=== PATIENT | male | born 1960 | race Caucasian/White ===

== ENCOUNTER 2017-02-18 00:36 | Emergency (ER) | payer SELFPAY | END 2017-02-18 01:16 | disposition home or self-care (01) | PROVIDERS: Emergency Provider Emergency Medicine; Visit Provider Emergency Medicine | DX: K02.9 Dental caries, unspecified (principal); F17.210 Nicotine dependence, cigarettes, uncomplicated; Z88.0 Allergy status to penicillin | CPT/HCPCS: 99282 ==

== ENCOUNTER 2017-02-20 14:44 | Emergency (ER) | payer SELFPAY | END 2017-02-20 15:35 | disposition home or self-care (01) | PROVIDERS: Emergency Provider Nurse Practitioner Family; Visit Provider Nurse Practitioner Family | DX: J40 Bronchitis, not specified as acute or chronic (principal); F17.210 Nicotine dependence, cigarettes, uncomplicated; Z88.0 Allergy status to penicillin; Z79.899 Other long term (current) drug therapy | CPT/HCPCS: 71020; 99201 ==

== ENCOUNTER 2017-04-15 23:12 | Emergency (ER) | payer MEDICAID, SELFPAY ==
[2017-04-15 23:13] VITALS: BP 159/82; PULSE 80; RESP 18; TEMP 37.3; O2SAT 98; BMI 25.4
--- NOTE | 2017-04-15 23:19 | XR_ITS ---
XR chest 2V HISTORY: ITS.REASON: CHEST PAIN ORDERING PHYSICIAN: Kumar Fagan MD PATIENT AGE: 56 years COMPARISON: 02/20/2017 FINDINGS: The cardiomediastinal silhouette and pulmonary vascularity are within normal limits. There is mild left basilar atelectasis. The remaining lungs are clear. No acute bony abnormalities. IMPRESSION: Mild left basilar atelectasis otherwise negative chest
[2017-04-15 23:32] LABS: Basophils # 0.1 K/mm3 (0-0.2); Basophils % 0.8 % (0.1-2.0); Eosinophils # 0.2 K/mm3 (0.0-0.4); Eosinophils % 2.1 % (0.1-12.0); Hematocrit 46.5 % (42.0-52.0); Hemoglobin 15.4 g/dL (14.1-18.0); Lymphocytes # 2.5 K/mm3 (0.7-4.5); Lymphocytes % 34.7 K/mm3 (10-50); Mean Corpuscular Hemoglobin 31.8 pg (27.0-31.2); Mean Corpuscular Volume 96.1 fl (80-94); Mean Platelet Volume 7.3 fl (7.4-10.4); Monocytes # 0.4 K/mm3 (0.1-1.0); Monocytes % 5.3 % (1.7-9.3); Neutrophils # 4.1 K/mm3 (1.8-7.8); Neutrophils % 57.2 % (37.0-80.0); Platelet Count 256 K/mm3 (142-424); Red Blood Count 4.84 M/mm3 (4.60-6.20); Red Cell Distribution Width 12.7 % (11.5-17.5); White Blood Count 7.1 K/mm3 (4.8-10.8)
[2017-04-16 00:23] LABS: Alanine Aminotransferase 26 U/L (12-78); Albumin Level 3.8 gm/dL (3.4-5.0); Alkaline Phosphatase 87 U/L (46-116); Anion Gap 9.8 mEq/L (5-15); Aspartate Amino Transferase 15 U/L (15-37); Bilirubin,Total 0.7 mg/dL (0.2-1.0); Blood Urea Nitrogen 14 mg/dL (7-18); CKMB Relative Index 0.8 U/L (0-4.0); Calcium 9.2 mg/dL (8.5-10.1); Carbon Dioxide 31 mmol/L (21.0-32.0); Chloride 108 mmol/L (98-107); Creatine Kinase 63 U/L (39-308); Creatine Kinase MB 0.5 mg/ml (0.0-3.6); Creatinine Clearance Estimated 69 mL/min (0-300); Creatinine,Serum 1.21 mg/dL (0.70-1.30); Estimated Glomerular Filt Rate 62 ml/min (>60); GFR (African American) 75 ML/MIN (>60); Globulin 3.9 gm/dl (1.3-3.2); Glucose 98 mg/dL (74-106); Potassium 3.8 mmoL/L (3.5-5.1); Sodium 145 mmol/L (136-145); Total Protein,Serum 7.7 gm/dL (6.4-8.2); Troponin I < 0.02 ng/ml (0.00-0.06)
--- NOTE | 2017-04-16 00:42 | HMH.EDCP ---
ED Disposition Clinical Impression: Chest pain Qualifiers: Chest pain type: unspecified Qualified Code(s): R07.9 - Chest pain, unspecified Disposition: Home, Self-Care Condition on Discharge: Good Instructions: DI for Atypical Chest Pain Additional Instructions: see card monday at 0900 - Critical Care Critical Care Time: No Attestation: On 04/15/17, the high probability of a clinically significant, sudden or life threatening deterioration of the following system(s) required my full and direct attention, intervention and personal management. The time I documented below is in addition to time spent performing reported procedures but includes the following listed in this critical care notation. Medical Decision Making - Medical Records Medical records reviewed: Yes: I reviewed the patient's medical records. Vital Signs: 04/15/17 23:13 Temperature 99.2 F Temperature Source Oral Pulse Rate [Right Brachial] 80 Respiratory Rate 18 Blood Pressure [Right Arm] 159/82 Blood Pressure Mean [Right Arm] 107 02 Sat by Pulse Oximetry 98 Oxygen Delivery Method Room Air - Lab Data Lab results reviewed: Yes: I reviewed the patient's lab results. Lab Results 04/15/17 23:20: WBC 7.1, RBC 4.84, Hgb 15.4, Hct 46.5, MCV 96.1 H, MCH 31.8 H, MCHC 33.0, RDW 12.7, Plt Count 256, MPV 7.3 L, Neut % (Auto) 57.2, Lymph % (Auto) 34.7, [place] % (Auto) 5.3, Eos % (Auto) 2.1, Baso % (Auto) 0.8, Neut # (Auto) 4.1, Lymph # (Auto) 2.5, [place] # (Auto) 0.4, Eos # (Auto) 0.2, Baso # (Auto) 0.1 04/15/17 23:20: Sodium 145, Potassium 3.8, Chloride 108 H, Carbon Dioxide 31, Anion Gap 9.8, BUN 14, Creatinine 1.21, Estimated Creat Clear 69, Estimated GFR 62, Est GFR ( Amer) 75, Glucose 98, Calcium 9.2, Total Bilirubin 0.7, AST 15, ALT 26, Alkaline Phosphatase 87, Total Creatine Kinase 63, CK-MB (CK-2) 0.5, CK-MB (CK-2) Rel Index 0.8, Troponin I < 0.02, Total Protein 7.7, Albumin 3.8, Globulin 3.9 H, Albumin/Globulin Ratio 1.0 L Result diagrams: 04/15/17 23:20 04/15/17 23:20 Orders (Tests/Meds): ED MEDICATIONS Discontinued Medications Generic Name Dose Route Start Last Admin Trade Name Ulisses PRN Reason Stop Dose Admin Aspirin 324 mg 04/15/17 23:20 04/15/17 23:21 Aspirin 81mg Chewable Tablet PO 04/15/17 23:21 324 mg ONCE ONE Administration ORDERS Category Date Time Status Chest XR 2 view (NOT portable) [XR chest 2V] Stat Exams 04/15/17 23:19 Taken - Radiology Data #1 Image(s): Chest Image Reviewed: Yes I reviewed the patient's radiology image Preliminary Findings: Normal/NAD - ECG Data Tracing #1 I reviewed this ECG and interpreted as documented below: Normal Sinus Rhythm: Yes Ischemic changes: non-specific ST-T wave changes - Anjel Inquiry Pt receiving controlled substance: No Chest Pain HPI - General Chief Complaint: Chest Pain Stated Complaint: chest pain Time Seen by Provider: 04/16/17 00:43 Mode of Arrival: Ambulatory Source of Information: Patient, Medical Record Limitations: No Limitations Description of Symptoms (Recalled from ER Triage Doc. by RN): CHEST PAIN X3 DAYS - History of Present Illness HPI narrative: chest achey over the last 3 days - has had before - cath 6 yrs ago with neg cath - no fever or cough MD complaint: chest pain Onset (ago): day(s) Duration: intermittent Activity at onset: during rest Pain location: epigastric Severity: moderate Quality: aching Risk Factors for CAD: Family Hx of CAD Treatments prior to or on arrival for Cardiac Chest Pain: none - KARLENE Score Non-Stemi Age of patient: Less than 65 yrs Number of risk factors for CAD: Presence of less than 3 Prior coronary artery stenosis(seen in coronary angiography): Less than 50% ST-Segment deviation on ECG (more than 1 min): Absent Prior aspirin intake: No ASA in the last 7 days Severe anginal chest pain: Two or more episodes in last 24 hours Elevated cardiac markers(CK-MB or troponin)
--- NOTE | 2017-04-16 00:46 | ED_ITS ---
ED Disposition Clinical Impression: Chest pain Qualifiers: Chest pain type: unspecified Qualified Code(s): R07.9 - Chest pain, unspecified Disposition: Home, Self-Care Condition on Discharge: Good Instructions: DI for Atypical Chest Pain Additional Instructions: see card monday at 0900 - Critical Care Critical Care Time: No Attestation: On 04/15/17, the high probability of a clinically significant, sudden or life threatening deterioration of the following system(s) required my full and direct attention, intervention and personal management. The time I documented below is in addition to time spent performing reported procedures but includes the following listed in this critical care notation. Medical Decision Making - Medical Records Medical records reviewed: Yes: I reviewed the patient's medical records. Vital Signs: 04/15/17 23:13 Temperature 99.2 F Temperature Source Oral Pulse Rate [Right Brachial] 80 Respiratory Rate 18 Blood Pressure [Right Arm] 159/82 Blood Pressure Mean [Right Arm] 107 02 Sat by Pulse Oximetry 98 Oxygen Delivery Method Room Air - Lab Data Lab results reviewed: Yes: I reviewed the patient's lab results. Lab Results 04/15/17 23:20: WBC 7.1, RBC 4.84, Hgb 15.4, Hct 46.5, MCV 96.1 H, MCH 31.8 H, MCHC 33.0, RDW 12.7, Plt Count 256, MPV 7.3 L, Neut % (Auto) 57.2, Lymph % (Auto ) 34.7, [place] % (Auto) 5.3, Eos % (Auto) 2.1, Baso % (Auto) 0.8, Neut # (Auto) 4.1, Lymph # (Auto) 2.5, [place] # (Auto) 0.4, Eos # (Auto) 0.2, Baso # (Auto) 0.1 04/15/17 23:20: Sodium 145, Potassium 3.8, Chloride 108 H, Carbon Dioxide 31, Anion Gap 9.8, BUN 14, Creatinine 1.21, Estimated Creat Clear 69, Estimated GFR 62, Est GFR ( Amer) 75, Glucose 98, Calcium 9.2, Total Bilirubin 0.7, AST 15, ALT 26, Alkaline Phosphatase 87, Total Creatine Kinase 63, CK-MB (CK-2) 0.5, CK-MB (CK-2) Rel Index 0.8, Troponin I < 0.02, Total Protein 7.7, Albumin 3.8, Globulin 3.9 H, Albumin/Globulin Ratio 1.0 L Result diagrams: 04/15/17 23:20 04/15/17 23:20 Orders (Tests/Meds): ED MEDICATIONS Discontinued Medications Generic Name Dose Route Start Last Admin Trade Name Ulisses PRN Reason Stop Dose Admin Aspirin 324 mg 04/15/17 23:20 04/15/17 23:21 Aspirin 81mg Chewable Tablet PO 04/15/17 23:21 324 mg ONCE ONE Administration ORDERS Category Date Time Status Chest XR 2 view (NOT portable) [XR chest 2V] Stat Exams 04/15/17 23:19 Taken - Radiology Data #1 Image(s): Chest Image Reviewed: Yes I reviewed the patient's radiology image Preliminary Findings: Normal/NAD - ECG Data Tracing #1 I reviewed this ECG and interpreted as documented below: Normal Sinus Rhythm: Yes Ischemic changes: non-specific ST-T wave changes - Anjel Inquiry Pt receiving controlled substance: No Chest Pain HPI - General Chief Complaint: Chest Pain Stated Complaint: chest pain Time Seen by Provider: 04/16/17 00:43 Mode of Arrival: Ambulatory Source of Information: Patient, Medical Record Limitations: No Limitations Description of Symptoms (Recalled from ER Triage Doc. by RN): CHEST PAIN X3 DAYS - History of Present Illness HPI narrative: chest achey over the last 3 days - has had before - cath 6 yrs ago with neg cath - no fever or cough MD complaint: chest pain Onset (ago): day(s
[2017-04-16 00:59] VITALS: BP 132/86; PULSE 64; RESP 16; TEMP 37.3; O2SAT 97
[2017-05-10 10:00] LABS: POC Glucose,Bedside 116 mg/dL (70-110)
== END 2017-04-16 01:00 | disposition home or self-care (01) ==
PROVIDERS: Emergency Provider Emergency Medicine; Family Provider Internal Medicine Adolescent Medicine
DX: R07.9 Chest pain, unspecified (principal); Z82.49 Family history of ischemic heart disease and other diseases of the circulatory system; Z87.891 Personal history of nicotine dependence; Z88.0 Allergy status to penicillin
CPT/HCPCS: 71046; 80053; 82550; 82553; 82962; 84484; 85025; 93005; 93041; 99284

== ENCOUNTER 2017-05-04 10:39 | Emergency (ER) | payer MEDICAID, SELFPAY ==
[2017-05-04 11:05] VITALS: BP 134/73; PULSE 88; RESP 20; TEMP 36.7; O2SAT 98; BMI 26.1
[2017-05-04 11:30] VITALS: BP 132/77; PULSE 88; RESP 20; TEMP 36.6
--- NOTE | 2017-05-04 11:40 | HMH.EDUTC ---
[facility] [place] Disposition Clinical Impression: Dental abscess Disposition: Home, Self-Care Condition on Discharge: Good Instructions: Tooth Decay, Tooth Abscess, DI for Tooth Abscess Additional Instructions: Follow up with dentist as scheduled Follow up with family doctor for further treatment and evaluation Take medication as prescribed Return if needed Prescriptions: cephALEXin [Keflex 500mg Cap] 500 mg PO Q6H #40 cap Referrals: Kumar Fagan MD [Primary Care Provider] - Medical Decision Making - Medical Records Medical records reviewed: Yes: I reviewed the patient's medical records. Vital Signs: 05/04/17 11:05 05/04/17 11:30 Temperature 98.1 F 98 F Temperature Source Temporal Artery Scan Pulse Rate 88 Pulse Rate [Right] 88 Respiratory Rate 20 20 Blood Pressure 132/77 Blood Pressure [Right Arm] 134/73 Blood Pressure Mean [Right Arm] 93 Blood Pressure Source [Right Arm] Automatic Cuff Blood Pressure Position [Right Arm] Sitting 02 Sat by Pulse Oximetry 98 Oxygen Delivery Method Room Air - Anjel Inquiry Pt receiving controlled substance: No Anjel was queried for this patient: No - Reevaluation(s) Time: 11:59 Reevaluation #1: Patient advised that he has taken Keflex before and even though allergic to Penicillin he is able to take Cephasporins without reaction [facility] [place] HPI - General Stated complaint: dental pain Mode of Arrival: Ambulatory Source of Information: Patient Limitations: No Limitations Description of Symptoms (Recalled from Triage Doc. by RN): DENTAL PAIN X2 MONTHS HEENT Symptoms (Recalled from RN notes): Yes Resp Symptoms (Recalled from RN notes): No Skin Symptoms (Recalled from RN notes): No MS Symptoms (Recalled from RN notes): No Functional Status (Recalled from RN notes): N - History of Present Illness Provider Complaint: Patient state that he has been having dental issues now for several months State that he has an appointment with the dentist in the next couple of weeks to have teeth removed but thinks they may be infected so he came in to see if he may need antibiotics - Related Data Previous Rx's Medication Instructions Recorded omeprazole 40 mg capsule,delayed 40 mg PO DAILY #30 cap 04/17/17 release cephALEXin [Keflex 500mg Cap] 500 mg PO Q6H #40 cap 05/04/17 Allergies Allergy/AdvReac Type Severity Reaction Status Date / Time Penicillins [PENICILLINS] Allergy Mild Verified 04/15/17 23:17 - Worker's Comp Is this a Worker's Comp case?: No [facility] History I have reviewed the patient's past medical history: Yes Other Surgeries: Yes: Other (Micky Sx) - Social History Smoking Status: Former smoker Alcohol Intake: never Alcohol Intake Frequency:: other - Psychiatric History Expresses thoughts of harming self/others: None Suicide Plan Description: No Plan Family Hx:: Coronary Artery Disease, Heart Attack ROS Obtained: Yes All systems reviewed & no additional complaints - ENT Ears, Nose, Mouth, and Throat: Reports dental pain Physical Exam - General General appearance: alert, in no apparent distress - Expanded ENT Exam Teeth exam: Present: dental caries, fractured tooth #, other (Gum area on top jawline swollen, irritated multiple broken and decayed teeth noted) - Respiratory Respiratory exam: Present: normal lung sounds bilaterally. Absent: respiratory distress - Cardiovascular Cardiovascular exam: Present: regular rate, normal rhythm. Absent: JVD - Abdominal Exam Abdominal exam: Present: soft, normal bowel sounds. Absent: distention, tenderness, guarding - Neurological Exam Neurological exam: Present: alert, oriented X3
--- NOTE | 2017-05-04 11:46 | ED_ITS ---
[facility] [place] Disposition Clinical Impression: Dental abscess Disposition: Home, Self-Care Condition on Discharge: Good Instructions: Tooth Decay, Tooth Abscess, DI for Tooth Abscess Additional Instructions: Follow up with dentist as scheduled Follow up with family doctor for further treatment and evaluation Take medication as prescribed Return if needed Prescriptions: cephALEXin [Keflex 500mg Cap] 500 mg PO Q6H #40 cap Referrals: Kumar Fagan MD [Primary Care Provider] - Medical Decision Making - Medical Records Medical records reviewed: Yes: I reviewed the patient's medical records. Vital Signs: 05/04/17 11:05 05/04/17 11:30 Temperature 98.1 F 98 F Temperature Source Temporal Artery Scan Pulse Rate 88 Pulse Rate [Right] 88 Respiratory Rate 20 20 Blood Pressure 132/77 Blood Pressure [Right Arm] 134/73 Blood Pressure Mean [Right Arm] 93 Blood Pressure Source [Right Arm] Automatic Cuff Blood Pressure Position [Right Arm] Sitting 02 Sat by Pulse Oximetry 98 Oxygen Delivery Method Room Air - Anjel Inquiry Pt receiving controlled substance: No Anjel was queried for this patient: No - Reevaluation(s) Time: 11:59 Reevaluation #1: Patient advised that he has taken Keflex before and even though allergic to Penicillin he is able to take Cephasporins without reaction [facility] [place] HPI - General Stated complaint: dental pain Mode of Arrival: Ambulatory Source of Information: Patient Limitations: No Limitations Description of Symptoms (Recalled from Triage Doc. by RN): DENTAL PAIN X2 MONTHS HEENT Symptoms (Recalled from RN notes): Yes Resp Symptoms (Recalled from RN notes): No Skin Symptoms (Recalled from RN notes): No MS Symptoms (Recalled from RN notes): No Functional Status (Recalled from RN notes): N - History of Present Illness Provider Complaint: Patient state that he has been having dental issues now for several months State that he has an appointment with the dentist in the next couple of weeks to have teeth removed but thinks they may be infected so he came in to see if he may need antibiotics - Related Data Previous Rx's Medication Instructions Recorded omeprazole 40 mg capsule,delayed 40 mg PO DAILY #30 cap 04/17/17 release cephALEXin [Keflex 500mg Cap] 500 mg PO Q6H #40 cap 05/04/17 Allergies Allergy/AdvReac Type Severity Reaction Status Date / Time Penicillins [PENICILLINS] Allergy Mild Verified 04/15/17 23:17 - Worker's Comp Is this a Worker's Comp case?: No [facility] History I have reviewed the patient's past medical history: Yes Other Surgeries: Yes: Other (Micky Sx) - Social History Smoking Status: Former smoker Alcohol Intake: never Alcohol Intake Frequency:: other - Psychiatric History Expresses thoughts of harming self/others: None Suicide Plan Description: No Plan Family Hx:: Coronary Artery Disease, Heart Attack ROS Obtained: Yes All systems reviewed & no additional complaints - ENT Ears, Nose, Mouth, and Throat: Reports dental pain Physical Exam - General General appearance: alert, in no apparent distress - Expanded ENT Exam Teeth exam: Present: dental caries, fractured tooth #, other (Gum area on top jawline swollen, irritated multiple broken and decayed teeth noted) - Respiratory Respiratory exam: Pre
== END 2017-05-04 12:05 | disposition home or self-care (01) ==
PROVIDERS: Emergency Provider Nurse Practitioner; Family Provider Internal Medicine Adolescent Medicine; PCP Emergency Medicine
DX: K04.7 Periapical abscess without sinus (principal)
CPT/HCPCS: 99202

== ENCOUNTER 2017-05-07 10:37 | Observation (INO) | payer MEDICAID, SELFPAY ==
[2017-05-07] VITALS (15 sets, daily range): BP systolic 108–146; BP diastolic 70–90; PULSE 61–89; RESP 16–18; TEMP 36.4–36.7; O2SAT 93–99; BMI 26.1; BMI 26.6
--- NOTE | 2017-05-07 10:42 | XR_ITS ---
XR chest 2V HISTORY: ITS.REASON: chest pain ORDERING PHYSICIAN: Frances Wheat MD PATIENT AGE: 56 years COMPARISON: To 1018 FINDINGS: The cardiomediastinal silhouette and pulmonary vascularity are within normal limits. Left basilar atelectasis has improved. The lungs are clear of acute infiltrate. No acute bony anomalies. IMPRESSION: No acute finding
[2017-05-07 10:52] LABS: Basophils # 0.1 K/mm3 (0-0.2); Basophils % 0.8 % (0.1-2.0); Eosinophils # 0.4 K/mm3 (0.0-0.4); Eosinophils % 6.6 % (0.1-12.0); Hemoglobin 17.3 g/dL (14.1-18.0); Lymphocytes # 2.2 K/mm3 (0.7-4.5); Lymphocytes % 32.8 K/mm3 (10-50); Mean Corpuscular HGB Conc 33.2 g/dL (31.8-35.4); Mean Corpuscular Hemoglobin 33.1 pg (27.0-31.2); Mean Corpuscular Volume 99.9 fl (80-94); Mean Platelet Volume 7.3 fl (7.4-10.4); Monocytes # 0.3 K/mm3 (0.1-1.0); Monocytes % 4.3 % (1.7-9.3); Neutrophils # 3.7 K/mm3 (1.8-7.8); Neutrophils % 55.6 % (37.0-80.0); Platelet Count 250 K/mm3 (142-424); Red Blood Count 5.21 M/mm3 (4.60-6.20); Red Cell Distribution Width 12.9 % (11.5-17.5); White Blood Count 6.6 K/mm3 (4.8-10.8)
--- NOTE | 2017-05-07 11:01 | HMH.EDCP ---
ED Disposition Clinical Impression: Unstable angina, Hypertension, Tobacco use disorder Disposition: Still a Patient Condition on Discharge: Fair Referrals: Kumar Fagan MD [Primary Care Provider] - - Critical Care Critical Care Time: No Attestation: On 05/07/17, the high probability of a clinically significant, sudden or life threatening deterioration of the following system(s) required my full and direct attention, intervention and personal management. The time I documented below is in addition to time spent performing reported procedures but includes the following listed in this critical care notation. Medical Decision Making Vital Signs: 05/07/17 10:37 05/07/17 11:38 Temperature 97.5 F L Temperature Source Oral Pulse Rate 61 Pulse Rate [Right Brachial] 80 Respiratory Rate 18 Blood Pressure [Right Arm] 146/90 Blood Pressure Mean [Right Arm] 108 Blood Pressure Source [Right Arm] Automatic Cuff Blood Pressure Position [Right Arm] Sitting 02 Sat by Pulse Oximetry 98 Oxygen Delivery Method Room Air - Lab Data Lab Results 05/07/17 10:45: WBC 6.6, RBC 5.21, Hgb 17.3, Hct 52.0, MCV 99.9 H, MCH 33.1 H, MCHC 33.2, RDW 12.9, Plt Count 250, MPV 7.3 L, Neut % (Auto) 55.6, Lymph % (Auto) 32.8, [place] % (Auto) 4.3, Eos % (Auto) 6.6, Baso % (Auto) 0.8, Neut # (Auto) 3.7, Lymph # (Auto) 2.2, [place] # (Auto) 0.3, Eos # (Auto) 0.4, Baso # (Auto) 0.1 05/07/17 10:45: Sodium 140, Potassium 4.1, Chloride 103, Carbon Dioxide 29, Anion Gap 8.0, BUN 13, Creatinine 1.23, Estimated Creat Clear 70, Estimated GFR 61, Est GFR ( Amer) 74, Glucose 118 H, Calcium 9.1, Total Bilirubin 0.5, AST 19, ALT 34, Alkaline Phosphatase 109, Total Creatine Kinase 83, CK-MB (CK-2) 0.8 D, CK-MB (CK-2) Rel Index 1.0, Troponin I < 0.02, Total Protein 8.3 H, Albumin 4.0, Globulin 4.3 H, Albumin/Globulin Ratio 0.9 L Result diagrams: 05/07/17 10:45 05/07/17 10:45 Orders (Tests/Meds): ED MEDICATIONS Discontinued Medications Generic Name Dose Route Start Last Admin Trade Name Ulisses PRN Reason Stop Dose Admin Albuterol/Ipratropium 3 ml 05/07/17 11:13 05/07/17 11:38 Duoneb 3ml Neb IH 05/07/17 11:14 3 ml ONCE ONE Administration Aspirin 324 mg 05/07/17 10:42 05/07/17 10:46 Aspirin 81mg Enteric Coated Tablet PO 05/07/17 10:43 324 mg ONCE ONE Administration Famotidine 20 mg 05/07/17 11:14 05/07/17 11:50 Pepcid 20mg/2ml Vial IV 05/07/17 11:15 20 mg ONCE ONE Administration Methylprednisolone Sodium Succinate 125 mg 05/07/17 11:13 05/07/17 11:50 Solu-Medrol 125mg/2ml Vial IV 05/07/17 11:14 125 mg ONCE ONE Administration Nitroglycerin 0.4 mg 05/07/17 10:59 05/07/17 11:00 Nitrostat 0.4mg Sl Tablet SL 05/07/17 11:00 1 1000units ONCE ONE Administration ORDERS Category Date Time Status B-Type Natriuretic Peptide Stat Lab 05/07/17 10:45 Received D-Dimer Stat Lab 05/07/17 10:45 Received - Radiology Data #1 Image(s): Chest Image Reviewed: Yes I reviewed the patient's radiology image Preliminary Findings: Normal/NAD - ECG Data Tracing #1 Normal sinus rhythm 60/min baseline artifact no acute findings. ECG initial impression date: 05/07/17 ECG initial impression time: 11:04 - Anjel Inquiry Pt receiving controlled substance: No Anjel was queried for this patient: No Medical Decision Making Narrative: The patient was given aspirin and nitroglycerin with no improvement. Is given a DuoNeb with no improvement. The need to have dull pressure type pain on the chest. Blood pressure was better down to [address] Morse is on-call for Dr. Fagan and he agreed to admit him for observation serial enzymes and echocardiogram in the morning with cardiac consultation. Chest Pain HPI - General Chief Complaint: Chest Pain Stated Complaint: chest pain, SOA Mode of Arrival: Ambulatory Limitations: No Limitations Description of Symptom
--- NOTE | 2017-05-07 11:04 | ED_ITS ---
ED Disposition Clinical Impression: Unstable angina, Hypertension, Tobacco use disorder Disposition: Still a Patient Condition on Discharge: Fair Referrals: Kumar Fagan MD [Primary Care Provider] - - Critical Care Critical Care Time: No Attestation: On 05/07/17, the high probability of a clinically significant, sudden or life threatening deterioration of the following system(s) required my full and direct attention, intervention and personal management. The time I documented below is in addition to time spent performing reported procedures but includes the following listed in this critical care notation. Medical Decision Making Vital Signs: 05/07/17 10:37 05/07/17 11:38 Temperature 97.5 F L Temperature Source Oral Pulse Rate 61 Pulse Rate [Right Brachial] 80 Respiratory Rate 18 Blood Pressure [Right Arm] 146/90 Blood Pressure Mean [Right Arm] 108 Blood Pressure Source [Right Arm] Automatic Cuff Blood Pressure Position [Right Arm] Sitting 02 Sat by Pulse Oximetry 98 Oxygen Delivery Method Room Air - Lab Data Lab Results 05/07/17 10:45: WBC 6.6, RBC 5.21, Hgb 17.3, Hct 52.0, MCV 99.9 H, MCH 33.1 H, MCHC 33.2, RDW 12.9, Plt Count 250, MPV 7.3 L, Neut % (Auto) 55.6, Lymph % (Auto ) 32.8, [place] % (Auto) 4.3, Eos % (Auto) 6.6, Baso % (Auto) 0.8, Neut # (Auto) 3.7, Lymph # (Auto) 2.2, [place] # (Auto) 0.3, Eos # (Auto) 0.4, Baso # (Auto) 0.1 05/07/17 10:45: Sodium 140, Potassium 4.1, Chloride 103, Carbon Dioxide 29, Anion Gap 8.0, BUN 13, Creatinine 1.23, Estimated Creat Clear 70, Estimated GFR 61, Est GFR ( Amer) 74, Glucose 118 H, Calcium 9.1, Total Bilirubin 0.5, AST 19, ALT 34, Alkaline Phosphatase 109, Total Creatine Kinase 83, CK-MB (CK-2 ) 0.8 D, CK-MB (CK-2) Rel Index 1.0, Troponin I < 0.02, Total Protein 8.3 H, Albumin 4.0, Globulin 4.3 H, Albumin/Globulin Ratio 0.9 L Result diagrams: 05/07/17 10:45 05/07/17 10:45 Orders (Tests/Meds): ED MEDICATIONS Discontinued Medications Generic Name Dose Route Start Last Admin Trade Name Ulisses PRN Reason Stop Dose Admin Albuterol/Ipratropium 3 ml 05/07/17 11:13 05/07/17 11:38 Duoneb 3ml Neb IH 05/07/17 11:14 3 ml ONCE ONE Administration Aspirin 324 mg 05/07/17 10:42 05/07/17 10:46 Aspirin 81mg Enteric Coated Tablet PO 05/07/17 10:43 324 mg ONCE ONE Administration Famotidine 20 mg 05/07/17 11:14 05/07/17 11:50 Pepcid 20mg/2ml Vial IV 05/07/17 11:15 20 mg ONCE ONE Administration Methylprednisolone Sodium Succinate 125 mg 05/07/17 11:13 05/07/17 11:50 Solu-Medrol 125mg/2ml Vial IV 05/07/17 11:14 125 mg ONCE ONE Administration Nitroglycerin 0.4 mg 05/07/17 10:59 05/07/17 11:00 Nitrostat 0.4mg Sl Tablet SL 05/07/17 11:00 1 1000units ONCE ONE Administration ORDERS Category Date Time Status B-Type Natriuretic Peptide Stat Lab 05/07/17 10:45 Received D-Dimer Stat Lab 05/07/17 10:45 Received - Radiology Data #1 Image(s): Chest Image Reviewed: Yes I reviewed the patient's radiology image Preliminary Findings: Normal/NAD - ECG Data Tracing #1 Normal sinus rhythm 60/min baseline artifact no acute findings. ECG initial impression date: 05/07/17 ECG initial impression time: 11:04 [facility]
[2017-05-07 11:09] LABS: Blood Urea Nitrogen 13 mg/dL (7-18); Carbon Dioxide 29 mmol/L (21.0-32.0); Chloride 103 mmol/L (98-107); Creatine Kinase 83 U/L (39-308); Creatinine Clearance Estimated 70 mL/min (0-300); Creatinine,Serum 1.23 mg/dL (0.70-1.30); Estimated Glomerular Filt Rate 61 ml/min (>60); GFR (African American) 74 ML/MIN (>60); Glucose 118 mg/dL (74-106); Potassium 4.1 mmoL/L (3.5-5.1); Sodium 140 mmol/L (136-145); Troponin I < 0.02 ng/ml (0.00-0.06)
[2017-05-07 11:10] LABS: Alanine Aminotransferase 34 U/L (12-78); Albumin/Globulin Ratio 0.9 (1.1-1.8); Alkaline Phosphatase 109 U/L (46-116); Aspartate Amino Transferase 19 U/L (15-37); Bilirubin,Total 0.5 mg/dL (0.2-1.0); Calcium 9.1 mg/dL (8.5-10.1); Globulin 4.3 gm/dl (1.3-3.2); Total Protein,Serum 8.3 gm/dL (6.4-8.2)
[2017-05-07 11:17] LABS: Creatine Kinase MB 0.8 mg/ml (0.0-3.6)
--- NOTE | 2017-05-07 11:54 | PC.NURSE ---
AYO HYATT spoke with Dr. Morse who is television program director for
[2017-05-07 12:02] LABS: D-Dimer < 100 (0-400)
--- NOTE | 2017-05-07 12:22 | PC.NURSE ---
report called to KADE Roth on second floor at this time.
[2017-05-07 12:33] LABS: Troponin I < 0.02 ng/ml (0.00-0.06)
--- NOTE | 2017-05-07 13:12 | PC.ADMIT ---
[id number] Admission Note: The patient,Jerry Huynh,56 y/o, was given written information regarding hospital policies, unit procedures and contact persons. Patient's smoking status: Former smoker. Vital Signs - 8 hr 05/07/17 10:37 05/07/17 11:38 05/07/17 11:53 Temperature 97.5 F L Pulse Rate 61 Pulse Rate [Right Brachial] 80 64 Respiratory Rate 18 18 Blood Pressure Blood Pressure [Right Arm] 146/90 108/70 02 Sat by Pulse Oximetry 98 99 05/07/17 12:46 05/07/17 12:50 05/07/17 13:09 Temperature 98.0 F 98.0 F Pulse Rate 72 Pulse Rate [Right Brachial] 62 72 Respiratory Rate 16 18 18 Blood Pressure 112/75 Blood Pressure [Right Arm] 128/77 02 Sat by Pulse Oximetry 98 98 Pt arrived to the floor via wheelchair. A&O X3. Heart has a RRR. Lungs clear, bowel sounds active. Respirations are even and nonlabored. Pt appears slightly anxious. He states he has never been admitted to the hospital before and is a little nervous. Explained all procedures and went over what to expect during his stay. NSR on tele. No complaints verbalized. Will continue to monitor.
--- NOTE | 2017-05-07 19:02 | PC.NURSE ---
report to be given to Dorothy Tubbs RN
[2017-05-07 19:18] LABS: Troponin I < 0.02 ng/ml (0.00-0.06)
[2017-05-08] VITALS: PULSE 90
--- NOTE | 2017-05-08 | CA_ITS ---
PROCEDURE: 2-D M-mode and color Doppler study INDICATIONS FOR THE TEST: Chest pain+ COPD Heart Murmur Tobacco Smokingex Palpitations Fatigue Syncope Edema Hypertension Diabetes Mellitus Rheumatic Fever SOB BACA+Obesity Hyperlipidemia Family History HD+ Additional History dizziness, tachycardia PATIENT INFORMATION HEIGHT: 66 WEIGHT: 165 GENDER: Male B/P: 146/90 2-D/M-MODE INTERPRETATION: 2-D MEASUREMENTS OBSERVED VALUES IN CMS Right Ventricular Dimension (RVDd) 2.0 Interventricular Septum (Thickness)(IVsd) 1.2 Left Ventricular Internal Dimensions(LVIDd) 4.1 Left Ventricular Posterior Wall (Thickness)(LVPWd) 1.0 Aortic Root 3.1 Aortic Cusp Separation 2.2 Left Atrial Dimensions (LAD) 3.5 2D 1. Left atrium is normal size, left ventricle is normal size, there is mild qualitative concentric left ventricular hypertrophy, there is hyperdynamic left ventricular systolic function, visually estimated ejection fraction over 65% with no obvious regional wall motion abnormality. 2. The right atrium and right ventricle are normal size and contractility. 3. The aortic, mitral and tricuspid valvular grossly normal. 4. The pulmonic valve is poorly visualized 5. No significant pericardial effusion noted. DOPPLER INTERROGATION: Doppler interrogation of the aortic, mitral and tricuspid valvular presence of mild mitral and tricuspid regurgitation, tricuspid and jet velocity is insufficient for calculation of the right ventricular systolic pressure, grade 1 diastolic dysfunction seen without tissue Doppler evidence of raised left atrial pressure. CONCLUSION: 1. Normal left ventricular size, mild qualitative concentric left ventricular hypertrophy, hyperdynamic left ventricular systolic function, visually estimated ejection fraction was 65% with no obvious regional wall motion abnormality, grade 1 diastolic dysfunction seen without tissue Doppler evidence of raised left atrial pressure. 2. Mild mitral and tricuspid regurgitation 3. No significant pericardial effusion noted.
[2017-05-08 04:00] VITALS: BP 120/67; PULSE 60; PULSE 72; RESP 18; TEMP 36.5; O2SAT 92
--- NOTE | 2017-05-08 05:26 | PC.NURSE ---
Pt has rested in intervals this shift, states he has a aching feeling in his chest but is better. Pt states he is very anxious about being in the hospital and scared something is really wrong Pt has refused nitro paste this shift, states It made me feel funny when they gave it to me in the ER Educated it would help his pain and he states it does not hurt bad enough. NSR noted on cardiac cath lab technologist. VSS. BS active in all 4 qauds. Lung sounds clear. A&Ox3. No acute distress noted. Will continue to monitor.
[2017-05-08 05:56] VITALS: PULSE 89; PULSE 91
--- NOTE | 2017-05-08 06:17 | PC.NURSE ---
BRIDGETT Stacy, notified of consult for Dr Montanez
[2017-05-08 06:59] LABS: Chol/HDL Ratio 3.2 (1-3.5); Cholesterol 180 mg/dL (140-200); HDL Cholesterol 57 mg/dL (27-67); LDL Cholesterol 111 mg/dL (0-130); Triglycerides 59 mg/dL (30-200); VLDL Cholesterol 12 mg/dL (0-40)
--- NOTE | 2017-05-08 07:29 | PC.NURSE ---
REPORT GIVEN TO Beata OCONNOR W/C
--- NOTE | 2017-05-08 07:32 | HMH.PHAVTE ---
[facility] Pharmacy VTE Monitoring - Patient Demographics Admission date: 05/07/17 Report Date: 05/08/17 Time: 07:32 Allergies/Adverse Reactions: Patient Allergies Penicillins [PENICILLINS] Allergy (Mild, Verified 04/15/17 23:17) Height: 1.68 m Weight: 74.899 kg Patient Problems: Current Active Problems Unstable angina (Acute) Hypertension (Acute) Tobacco use disorder (Acute) - VTE Risk Labs: VTE Related Lab Results Hgb 17.3 g/dL (14.1-18.0) 05/07/17 10:45 Hct 52.0 % (42.0-52.0) 05/07/17 10:45 Plt Count 250 K/mm3 (142-424) 05/07/17 10:45 BUN 13 mg/dL (7-18) 05/07/17 10:45 Creatinine 1.23 mg/dL (0.70-1.30) 05/07/17 10:45 Estimated Creat Clear 70 mL/min (0-300) 05/07/17 10:45 Was VTE Risk Assessment Performed: Yes VTE Score: 1 VTE Risk Level: Very Low Risk - Prophylaxis VTE Prophylaxis Ordered?: Yes Types of VTE Prophylaxis: Pharmacological Pharmacologic Type: Enoxaparin - VTE Diagnosis Confirmed Treatment or plan recommended: Continue Current Treatment
--- NOTE | 2017-05-08 07:40 | PC.NURSE ---
report given to any lyons rn
[2017-05-08 08:00] VITALS: BP 138/78; PULSE 108; PULSE 110; RESP 18; TEMP 37.2; O2SAT 93
--- NOTE | 2017-05-08 08:05 | HMH.CNCARD ---
<Nathanael Lomeli - Last Filed: 05/08/17 08:05> History of Present Illness Consult date: 05/08/17 Requesting physician: Kumar Fagan Consult reason: chest pain Chief complaint: chest ache Additional Medical History:: 1. Tobacco use, stopped early 2017 2. History of cardiac cath, about 2011, clean per patient. 3. Strong FH of CAD in parents in their 40's 4. Anxiety History of present illness: 56 yo WM with history of tobacco use and early FH of CAD presented to ER for evaluation of chest discomfort. He describes it as an aching sensation without radiation. Recently in ER last month for similar symptoms with office visit the next day. He was supposed to have a stress test but reports it has not been scheduled. He continues to have symptoms despite PPI prescribed due to dysphagia. Pt is very anxious and is hard to keep focused on one aspect of his symptoms. Cardiac enzymes normal overnight. EKG is sinus without acute changes. He describes rapid heart rates but review of telemetry shows nothing significant. SOA has improved with breathing treatments. Cardiology consulted for evaluation. He reportedly had a clean cardiac cath several years ago. [facility] History Medical History: Denies:: Cancer, Diabetes Mellitus Type 1, Diabetes Mellitus Type 2, Hyperlipidemia, Hypertension Other Surgeries: Yes: No Previous Surgery, Other (Micky Sx) Amputation: No Fractures: No - *Social History Educational Level: Attended High School Smoking Status: Former smoker Alcohol Intake: never Alcohol Intake Frequency:: other Occupational Status: unemployed - Psychiatric History Expresses thoughts of harming self/others: None Suicide Plan Description: No Plan *Family Hx:: Coronary Artery Disease, Heart Attack Meds Home Medications Medication Instructions Recorded Confirmed Type Aspirin 81 mg PO DAILY 05/07/17 05/07/17 History cephALEXin [Keflex 500mg Cap] 500 mg PO Q6H 05/07/17 05/07/17 History Omeprazole [Omeprazole 40mg 40 mg PO DAILY 05/08/17 05/08/17 History Capsule] Allergies Allergy/AdvReac Type Severity Reaction Status Date / Time Penicillins [PENICILLINS] Allergy Mild Verified 04/15/17 23:17 Review of Systems - *Cardiovascular Reports chest pain - *Respiratory Reports shortness of breath Exam Vital signs and Labs for Last 24 Hours: Temp Pulse Resp BP Pulse Ox 99.0 F 108 H 18 138/78 93 L 05/08/17 08:00 05/08/17 08:00 05/08/17 08:00 05/08/17 08:00 05/08/17 08:00 Laboratory Results - last 24 hr 05/07/17 12:13: Troponin I < 0.02 05/07/17 18:50: Troponin I < 0.02 05/08/17 06:20: Triglycerides 59, Cholesterol 180, LDL Cholesterol 111, VLDL Cholesterol 12, HDL Cholesterol 57, Cholesterol/HDL Ratio 3.2 I & O for Last 24 hours: Intake & Output 05/05/17 05/06/17 05/07/17 05/08/17 11:59 11:59 11:59 11:59 Intake Total 1217 / 1217 Output Total 700 / 700 Balance 517 / 517 Weight 165 lb 2 oz - *Routine Neck Exam Absent: JVD, carotid bruit - *Routine Respiratory Exam Present: CTA bilaterally - *Routine Cardiovascular Exam Absent: murmur, gallop, rubs - *Routine Extremities Exam Absent: edema - *Routine Neurological Exam Present: alert, oriented X3, moving all extremities Assessment and Plan (1) Tobacco use disorder Current visit: Yes Status: Acute Category: Medical Code(s): F17.200 - Nicotine dependence, unspecified, uncomplicated (2) Chest pain Current visit: No Status: Acute Qualifiers: Chest pain type: unspecified Qualified Code(s): R07.9 - Chest pain, unspecified Category: Medical Code(s): R07.9 - Chest pain, unspecified (3) Dyspnea Current visit: No Status: Acute Category: Medical Code(s): R06.00 - Dyspnea, unspecified (4) Family history of heart disease Current visit: No Status: Acute Category: Medical Code(s): Z82.49 - Family history of ischemic heart disease and other diseases of the circulatory system
--- NOTE | 2017-05-08 08:15 | NM_ITS ---
NM hernan perf SPECT rest str CLINICAL INDICATION: Chest pain, palpitations, fatigue, ITS.REASON: chest pain ORDERING PHYSICIAN: Kumar Fagan MD PATIENT AGE: 56 years COMPARISON: None DOSE: 10.72 mCi technetium Myoview intravenously at rest followed by 32.3 mCi technetium Myoview at stress. The patient [id number] minutes achieving a heart rate 173 bpm. Projected heart rate is 164 bpm. Resting blood pressure is 159/91. Stress blood pressure 192/80. FINDINGS: Ejection fraction is calculated to be 78%. SPECT and polar map images are analyzed.. Decrease activity is present in the inferior wall which becomes more apparent on the stress images. No reversible defects are evident. No other significant anomalies evident. IMPRESSION: 1. Normal ejection fraction of 70%. 2. Decreased activity inferior wall more prominent on the stress images possibly related to diaphragmatic attenuation. 3. No reversible defects evident.
[2017-05-08 11:47] VITALS: BP 122/76; PULSE 98; RESP 16; TEMP 37.7; O2SAT 95
[2017-05-08 16:00] VITALS: BP 124/72; PULSE 100; PULSE 78; RESP 16; TEMP 37.4; O2SAT 95
--- NOTE | 2017-05-08 17:09 | HMH.HPDC ---
General - General Admission date: 05/07/17 Discharge date: 05/08/17 *Admission Date: 05/07/17 *Chief complaint: chest pain *History of present illness: this wm was seen in the [facility] ed with chest pain 56 years old white male ex-smoker presented to the ED with 1 month history of chest pain. Retrosternal dull aching pain that is worse with exertion or relieved by rest. He states that yesterday was a bad day and he is tired of having this pain. The pain is rated 4/10 today. It is associated associated with shortness of breath no palpitations no nausea no vomiting no dizziness no weak. 7 years ago, he underwent a cardiac catheterization for similar symptoms and it was negative. He quit smoking 1 year. He denies any medical illnesses or taking any medication. [facility] History I have reviewed the patient's past medical history: Yes Medical History: Denies:: Cancer, Diabetes Mellitus Type 1, Diabetes Mellitus Type 2, Hyperlipidemia, Hypertension Other Surgeries: Yes: No Previous Surgery, Other (Micky Sx) Amputation: No Fractures: No - *Social History Educational Level: Attended High School Smoking Status: Former smoker Alcohol Intake: never Alcohol Intake Frequency:: other Occupational Status: unemployed - Psychiatric History Expresses thoughts of harming self/others: None Suicide Plan Description: No Plan *Family Hx:: Coronary Artery Disease, Heart Attack Review of Systems - Review of Systems Review of systems:: pertinent systems reviewed and negative unless documented below - Constitutional Denies fever(s) - Eyes Denies change in vision - ENT Denies hearing loss - *Cardiovascular Reports chest pain at rest, Reports shortness of breath with activity, Denies radiating jaw, neck or arm pain - *Respiratory Denies chest congestion, Denies cough - *Gastrointestinal Denies abdominal pain - *Genitourinary Denies blood in urine - *Musculoskeletal Denies joint pain - Integumentary/Breasts Denies rash - *Neurologic Denies seizure-like activity - Psychiatric Reports anxiety Exam Vital signs and Labs for Last 24 Hours: Temp Pulse Resp BP Pulse Ox 99.3 F 78 16 124/72 95 05/08/17 16:00 05/08/17 16:00 05/08/17 16:00 05/08/17 16:00 05/08/17 16:00 Laboratory Results - last 24 hr 05/07/17 18:50: Troponin I < 0.02 03/05/18 06:20: Triglycerides 59, Cholesterol 180, LDL Cholesterol 111, VLDL Cholesterol 12, HDL Cholesterol 57, Cholesterol/HDL Ratio 3.2 I & O for Last 24 hours: Intake & Output 05/06/17 05/07/17 05/08/17 05/09/17 11:59 11:59 11:59 11:59 Intake Total 1217 / 1217 Output Total 700 / 700 Balance 517 / 517 Weight 165 lb 2 oz - Constitutional no acute distress - *Routine HEENT Exam Head: Present: normocephalic Eye: Present: EOMI, PERRL. Absent: conjunctival icterus ENT: Present: mucous membranes dry - *Routine Neck Exam Present: supple. Absent: JVD - *Routine Respiratory Exam Present: CTA bilaterally. Absent: respiratory distress - *Routine Cardiovascular Exam Present: RRR, murmur, S4 - *Routine Abdominal Exam Present: soft. Absent: tenderness, distended - *Routine Extremities Exam Absent: edema, Cain's sign - *Routine Skin Exam Present: intact. Absent: rash - *Routine Neurological Exam Present: alert, oriented X3, CN II-XII intact - Routine Psychiatric Exam Present: anxious Hospital Course Hospital Course: pt did well with neg card enz and was seen by card obacco use, stopped early 2017 2. History of cardiac cath, about 2011, clean per patient. 3. Strong FH of CAD in parents in their 40's 4. Anxiety History of present illness: 56 yo WM with history of tobacco use and early FH of CAD presented to ER for evaluation of chest discomfort. He describes it as an aching sensation without radiation. Recently in ER last month for similar symptoms with office visit the next day. He was supposed to have a stress test but repo
--- NOTE | 2017-05-18 09:47 | P.CONS_ITS ---
<Nathanael Lomeli - Last Filed: 05/08/17 08:05> History of Present Illness Consult date: 05/08/17 Requesting physician: Kumar Fagan Consult reason: chest pain Chief complaint: chest ache Additional Medical History:: 1. Tobacco use, stopped early 2017 2. History of cardiac cath, about 2011, clean per patient. 3. Strong FH of CAD in parents in their 40's 4. Anxiety History of present illness: 56 yo WM with history of tobacco use and early FH of CAD presented to ER for evaluation of chest discomfort. He describes it as an aching sensation without radiation. Recently in ER last month for similar symptoms with office visit the next day. He was supposed to have a stress test but reports it has not been scheduled. He continues to have symptoms despite PPI prescribed due to dysphagia. Pt is very anxious and is hard to keep focused on one aspect of his symptoms. Cardiac enzymes normal overnight. EKG is sinus without acute changes. He describes rapid heart rates but review of telemetry shows nothing significant. SOA has improved with breathing treatments. Cardiology consulted for evaluation. He reportedly had a clean cardiac cath several years ago. [facility] History Medical History: Denies:: Cancer, Diabetes Mellitus Type 1, Diabetes Mellitus Type 2, Hyperlipidemia, Hypertension Other Surgeries: Yes: No Previous Surgery, Other (Micky Sx) Amputation: No Fractures: No - *Social History Educational Level: Attended High School Smoking Status: Former smoker Alcohol Intake: never Alcohol Intake Frequency:: other Occupational Status: unemployed - Psychiatric History Expresses thoughts of harming self/others: None Suicide Plan Description: No Plan *Family Hx:: Coronary Artery Disease, Heart Attack Meds Home Medications Medication Instructions Recorded Confirmed Type Aspirin 81 mg PO DAILY 05/07/17 05/07/17 History cephALEXin [Keflex 500mg Cap] 500 mg PO Q6H 05/07/17 05/07/17 History Omeprazole [Omeprazole 40mg 40 mg PO DAILY 05/08/17 05/08/17 History Capsule] Allergies Allergy/AdvReac Type Severity Reaction Status Date / Time Penicillins [PENICILLINS] Allergy Mild Verified 04/15/17 23:17 Review of Systems - *Cardiovascular Reports chest pain - *Respiratory Reports shortness of breath Exam Vital signs and Labs for Last 24 Hours: Temp Pulse Resp BP Pulse Ox 99.0 F 108 H 18 138/78 93 L 05/08/17 08:00 05/08/17 08:00 05/08/17 08:00 05/08/17 08:00 05/08/17 08:00 Laboratory Results - last 24 hr 05/07/17 12:13: Troponin I < 0.02 05/07/17 18:50: Troponin I < 0.02 05/08/17 06:20: Triglycerides 59, Cholesterol 180, LDL Cholesterol 111, VLDL Cholesterol 12, HDL Cholesterol 57, Cholesterol/HDL Ratio 3.2 I & O for Last 24 hours: Intake & Output 05/05/17 05/06/17 05/07/17 05/08/17 11:59 11:59 11:59 11:59 Intake Total 1217 / 1217 Output Total 700 / 700 Balance 517 / 517 Weight 165 lb 2 oz - *Routine Neck Exam Absent: JVD, carotid bruit - *Routine Respiratory Exam Present: CTA bilaterally - *Routine Cardiovascular Exam Absent: murmur, gallop, rubs - *Routine Extremities Exam Absent: edema - *Routine Neurological Exam Present: alert, oriented X3, moving all extremities Assessment and Plan (1) Tobacco use disorder Current visit: Yes Status: Acute Category: M
== END 2017-05-08 17:46 | disposition home or self-care (01) ==
LOC: ER 11:54 → 2ND 12:00 → ER 14:01
PROVIDERS: Admitting Provider Family Medicine; Emergency Provider Emergency Medicine; Family Provider Internal Medicine Adolescent Medicine; PCP Emergency Medicine; Visit Provider Emergency Medicine
DX: I20.9 Angina pectoris, unspecified (principal); R07.9 Chest pain, unspecified; R06.09 Other forms of dyspnea
CPT/HCPCS: 36415; 71046; 78452; 80053; 80061; 82550; 82553; 83880; 84484; 85025; 85378; 93005; 93017; 93306; 94640; 96374; 96375; 99283; A9502; G0378

== ENCOUNTER 2017-05-29 13:11 | Emergency (ER) | payer MEDICAID, SELFPAY ==
[2017-05-29 13:12] VITALS: BP 131/86; PULSE 63; RESP 18; O2SAT 98; BMI 26.1
--- NOTE | 2017-05-29 13:19 | XR_ITS ---
XR chest 2V HISTORY: ITS.REASON: CHEST PAIN ORDERING PHYSICIAN: Emanuel Singletary MD PATIENT AGE: 56 years COMPARISON: 05/07/2017 FINDINGS: The cardiomediastinal silhouette and pulmonary vascularity are within normal limits. Patchy density is present in the left lower lobe consistent with an area of atelectasis. The remaining lungs are clear. No acute bony anomalies. IMPRESSION: Mild left lower lobe atelectasis
[2017-05-29 13:52] LABS: Basophils % 0.6 % (0.1-2.0); Eosinophils # 0.2 K/mm3 (0.0-0.4); Eosinophils % 4.2 % (0.1-12.0); Hematocrit 46.7 % (42.0-52.0); Hemoglobin 15.8 g/dL (14.1-18.0); Lymphocytes # 1.8 K/mm3 (0.7-4.5); Lymphocytes % 32.7 K/mm3 (10-50); Mean Corpuscular HGB Conc 33.8 g/dL (31.8-35.4); Mean Corpuscular Volume 97.6 fl (80-94); Mean Platelet Volume 7.3 fl (7.4-10.4); Monocytes # 0.3 K/mm3 (0.1-1.0); Monocytes % 6.1 % (1.7-9.3); Neutrophils # 3.1 K/mm3 (1.8-7.8); Neutrophils % 56.4 % (37.0-80.0); Platelet Count 269 K/mm3 (142-424); Red Blood Count 4.78 M/mm3 (4.60-6.20); Red Cell Distribution Width 13.1 % (11.5-17.5); White Blood Count 5.4 K/mm3 (4.8-10.8)
[2017-05-29 14:06] VITALS: BP 140/85; PULSE 60; RESP 18; TEMP 36.8; O2SAT 95
[2017-05-29 14:09] LABS: Alanine Aminotransferase 25 U/L (12-78); Albumin Level 3.7 gm/dL (3.4-5.0); Alkaline Phosphatase 88 U/L (46-116); Anion Gap 11.7 mEq/L (5-15); Aspartate Amino Transferase 18 U/L (15-37); Bilirubin,Total 0.7 mg/dL (0.2-1.0); Blood Urea Nitrogen 15 mg/dL (7-18); CKMB Relative Index 1.5 U/L (0-4.0); Calcium 8.9 mg/dL (8.5-10.1); Carbon Dioxide 28 mmol/L (21.0-32.0); Chloride 106 mmol/L (98-107); Creatine Kinase 72 U/L (39-308); Creatine Kinase MB 1.1 ng/ml (0.0-3.6); Creatinine Clearance Estimated 74 mL/min (0-300); Creatinine,Serum 1.16 mg/dL (0.70-1.30); Estimated Glomerular Filt Rate 65 ml/min (>60); GFR (African American) 79 ML/MIN (>60); Globulin 3.6 gm/dl (1.3-3.2); Glucose 99 mg/dL (74-106); Potassium 3.7 mmoL/L (3.5-5.1); Sodium 142 mmol/L (136-145); Total Protein,Serum 7.3 gm/dL (6.4-8.2); Troponin I < 0.02 ng/ml (0.00-0.06)
--- NOTE | 2017-05-29 14:14 | HMH.EDCP ---
ED Disposition Clinical Impression: GERD (gastroesophageal reflux disease) Qualifiers: Esophagitis presence: without esophagitis Qualified Code(s): K21.9 - Gastro-esophageal reflux disease without esophagitis Chest pain Qualifiers: Chest pain type: other chest pain Qualified Code(s): R07.89 - Other chest pain Disposition: Home, Self-Care Condition on Discharge: Good Instructions: DI for Atypical Chest Pain Additional Instructions: Please follow-up with Dr. Omari Montanez within the next 2 days, as discussed with the egg and spice mixer today. Referrals: Jad Montanez MD [Staff Physician] - Time of Disposition: 14:23 - Critical Care Critical Care Time: No Attestation: On 05/29/17, the high probability of a clinically significant, sudden or life threatening deterioration of the following system(s) required my full and direct attention, intervention and personal management. The time I documented below is in addition to time spent performing reported procedures but includes the following listed in this critical care notation. Medical Decision Making - Medical Records Medical records reviewed: Yes: I reviewed the patient's medical records. - Anjel Inquiry Pt receiving controlled substance: No Vital Signs: 05/29/17 13:12 05/29/17 14:06 05/29/17 14:42 Temperature 98.3 F 98.6 F Temperature Source Oral Pulse Rate 65 Pulse Rate [Right Radial] 63 60 Respiratory Rate 18 18 16 Blood Pressure 158/95 Blood Pressure [Right Arm] 131/86 140/85 Blood Pressure Mean [Right Arm] 101 103 Blood Pressure Source [Right Arm] Manual Cuff/ Palpation Automatic Cuff Blood Pressure Position [Right Arm] Sitting Supine 02 Sat by Pulse Oximetry 98 95 Oxygen Delivery Method Room Air Room Air Room Air - Lab Data Lab results reviewed: Yes: I reviewed the patient's lab results. Lab Results 05/29/17 13:30: WBC 5.4, RBC 4.78, Hgb 15.8, Hct 46.7, MCV 97.6 H, MCH 33.0 H, MCHC 33.8, RDW 13.1, Plt Count 269, MPV 7.3 L, Neut % (Auto) 56.4, Lymph % (Auto) 32.7, Montgomery % (Auto) 6.1, Eos % (Auto) 4.2, Baso % (Auto) 0.6, Neut # (Auto) 3.1, Lymph # (Auto) 1.8, Montgomery # (Auto) 0.3, Eos # (Auto) 0.2, Baso # (Auto) 0.0 05/29/17 13:30: Sodium 142, Potassium 3.7, Chloride 106, Carbon Dioxide 28, Anion Gap 11.7, BUN 15, Creatinine 1.16, Estimated Creat Clear 74, Estimated GFR 65, Est GFR ( Amer) 79, Glucose 99, Calcium 8.9, Total Bilirubin 0.7, AST 18, ALT 25, Alkaline Phosphatase 88, Total Creatine Kinase 72, CK-MB (CK-2) 1.1 D, CK-MB (CK-2) Rel Index 1.5, Troponin I < 0.02, Total Protein 7.3, Albumin 3.7, Globulin 3.6 H, Albumin/Globulin Ratio 1.0 L Result diagrams: 05/29/17 13:30 05/29/17 13:30 - Radiology Data #1 Image(s): Chest Image Reviewed: Yes I reviewed the patient's radiology results, Yes I reviewed the patient's radiology image, Yes I have reviewed radiologist's interpretation Preliminary Findings: Normal/NAD - ECG Data Tracing #1 I reviewed this ECG and interpreted as documented below: ECG normal with no acute: arrhythmias, ischemia, conduction abnormalities, chamber hypertrophy Normal Sinus Rhythm: No - Reevaluation(s) Time: 14:15 Reevaluation #1: Patient appears in stable medical condition, asymptomatic at this time. Will start patient on Protonix, instructed him to follow-up with Dr. Montanez in the morning. Case discussed with Nathanael Lomeli, agreeable to see the patient in the morning, in the office. Chest Pain HPI - General Chief Complaint: Chest Pain Stated Complaint: CHEST PAIN Time Seen by Provider: 05/29/17 13:40 Mode of Arrival: Family Vehicle Source of Information: Patient Limitations: No Limitations Description of Symptoms (Recalled from ER Triage Doc. by RN): PT C/O MIDSTERNAL CHEST PAIN THAT STARTED 4-5 DAYS AGO BUT IS NOT IMPROVING. PT WAS RECENTLY ADMITTED FOR CHEST PAIN AND HAD AN ECHO AND STRESS TEST PERFORMED. - History of Present Illness MD complaint: chest pain Onset (ago):
[2017-05-29 14:42] VITALS: BP 158/95; PULSE 65; RESP 16; TEMP 37; O2SAT 97
== END 2017-05-29 14:44 | disposition home or self-care (01) ==
PROVIDERS: Emergency Provider Emergency Medicine; Family Provider Internal Medicine Adolescent Medicine; PCP Emergency Medicine
DX: R07.9 Chest pain, unspecified (principal); K21.9 Gastro-esophageal reflux disease without esophagitis; Z88.0 Allergy status to penicillin; Z79.82 Long term (current) use of aspirin
CPT/HCPCS: 71046; 80053; 82550; 82553; 84484; 85025; 93005; 99283

== ENCOUNTER 2017-06-05 20:34 | Emergency (ER) | payer MEDICAID, SELFPAY ==
[2017-06-05 20:35] VITALS: BP 147/84; PULSE 61; RESP 16; TEMP 36.6; O2SAT 98; BMI 25.0
--- NOTE | 2017-06-05 20:47 | XR_ITS ---
XR chest portable COMPARISON: PA and lateral chest 06/03/2017 HISTORY: Chest pain TECHNIQUE: Portable upright chest FINDINGS: The lung hernández are well expanded. There may be minimal atelectasis at left base, otherwise lung hernández are clear. Cardiac size is normal and the vascularity is normal. There is no pleural fluid. IMPRESSION: Minimal left basilar atelectasis otherwise negative chest
[2017-06-05 21:21] VITALS: BP 121/71; PULSE 74; RESP 16; O2SAT 96
[2017-06-05 21:27] LABS: Alanine Aminotransferase 31 U/L (12-78); Albumin Level 4.2 gm/dL (3.4-5.0); Albumin/Globulin Ratio 1.1 (1.1-1.8); Alkaline Phosphatase 95 U/L (46-116); Anion Gap 12.7 mEq/L (5-15); Aspartate Amino Transferase 23 U/L (15-37); Bilirubin,Total 1.3 mg/dL (0.2-1.0); Blood Urea Nitrogen 15 mg/dL (7-18); Calcium 9.4 mg/dL (8.5-10.1); Carbon Dioxide 28 mmol/L (21.0-32.0); Chloride 103 mmol/L (98-107); Creatine Kinase 67 U/L (39-308); Creatine Kinase MB 0.7 ng/ml (0.0-3.6); Creatinine Clearance Estimated 75 mL/min (0-300); Creatinine,Serum 1.06 mg/dL (0.70-1.30); Estimated Glomerular Filt Rate 72 ml/min (>60); GFR (African American) 87 ML/MIN (>60); Globulin 3.9 gm/dl (1.3-3.2); Glucose 91 mg/dL (74-106); Potassium 3.7 mmoL/L (3.5-5.1); Sodium 140 mmol/L (136-145); Total Protein,Serum 8.1 gm/dL (6.4-8.2); Troponin I < 0.02 ng/ml (0.00-0.06)
--- NOTE | 2017-06-05 21:48 | [facility]H.EDCP ---
ED Disposition Clinical Impression: CAD (coronary artery disease) Qualifiers: Coronary Disease-Associated Artery/Lesion type: unspecified vessel or lesion type [place] vs. transplanted heart: [place] heart Associated angina: with unspecified angina Qualified Code(s): I25.119 - Atherosclerotic heart disease of [place] coronary artery with unspecified angina pectoris Disposition: Home, Self-Care Condition on Discharge: Good Additional Instructions: see dr pascal at 2 pm 06/06/17 Referrals: Kumar Fagan MD [Primary Care Provider] - - Critical Care Critical Care Time: No Attestation: On 06/05/17, the high probability of a clinically significant, sudden or life threatening deterioration of the following system(s) required my full and direct attention, intervention and personal management. The time I documented below is in addition to time spent performing reported procedures but includes the following listed in this critical care notation. Medical Decision Making - Medical Records Medical records reviewed: Yes: I reviewed the patient's medical records. - Anjel Inquiry Pt receiving controlled substance: No Vital Signs: 06/05/17 20:35 06/05/17 21:21 06/05/17 22:02 Temperature 97.8 F Temperature Source Oral Pulse Rate [Right Radial] 61 74 63 Respiratory Rate 16 16 14 Blood Pressure [Right Arm] 147/84 121/71 127/77 Blood Pressure Mean [Right Arm] 105 87 93 Blood Pressure Source [Right Arm] Automatic Cuff Automatic Cuff Automatic Cuff Blood Pressure Position [Right Arm] Sitting Sitting Sitting 02 Sat by Pulse Oximetry 98 96 97 Oxygen Delivery Method Room Air Room Air - Lab Data Lab results reviewed: Yes: I reviewed the patient's lab results. Lab Results 06/05/17 20:50: Sodium 140, Potassium 3.7, Chloride 103, Carbon Dioxide 28, Anion Gap 12.7, BUN 15, Creatinine 1.06, Estimated Creat Clear 75, Estimated GFR 72, Est GFR ( Amer) 87, Glucose 91, Calcium 9.4, Total Bilirubin 1.3 H, AST 23, ALT 31, Alkaline Phosphatase 95, Total Creatine Kinase 67, CK-MB (CK-2) 0.7 D, CK-MB (CK-2) Rel Index 1.0, Troponin I < 0.02, Total Protein 8.1, Albumin 4.2, Globulin 3.9 H, Albumin/Globulin Ratio 1.1 06/05/17 20:50: WBC 8.5, RBC 5.00, Hgb 16.6, Hct 49.5, MCV 98.9 H, MCH 33.1 H, MCHC 33.5, RDW 13.3, Plt Count 286, MPV 7.4, Neut % (Auto) 67.3, Lymph % (Auto) 24.5, [place] % (Auto) 4.7, Eos % (Auto) 2.8, Baso % (Auto) 0.6, Neut # (Auto) 5.7, Lymph # (Auto) 2.1, [place] # (Auto) 0.4, Eos # (Auto) 0.2, Baso # (Auto) 0.1 Result diagrams: 06/05/17 20:50 06/05/17 20:50 Orders (Tests/Meds): ED MEDICATIONS Discontinued Medications Generic Name Dose Route Start Last Admin Trade Name Freq PRN Reason Stop Dose Admin Aspirin 243 mg 06/05/17 20:49 06/05/17 20:49 Aspirin 81mg Chewable Tablet PO 06/05/17 20:50 243 mg ONCE ONE Administration Furosemide 40 mg 06/05/17 21:59 06/05/17 22:01 Lasix 40mg/4ml Vial IV 06/05/17 22:00 40 mg ONCE ONE Administration ORDERS Category Date Time Status XR chest portable Stat Exams 06/05/17 20:47 Taken ECG Request by /Nse Stat Y 06/05/17 20:47 Ordered - Radiology Data #1 Image(s): Chest Image Reviewed: Yes I reviewed the patient's radiology image Preliminary Findings: Abnormal (changes lt base) - ECG Data Tracing #1 I reviewed this ECG and interpreted as documented below: Normal Sinus Rhythm: Yes Ischemic changes: non-specific ST-T wave changes - Physician Consults Physician Consulted: gwyn Reason -: Pt condition Chest Pain HPI - General Chief Complaint: Chest Pain Stated Complaint: chest pain Time Seen by Provider: 06/05/17 21:48 Mode of Arrival: Ambulatory Source of Information: Patient, Medical Record Limitations: No Limitations Description of Symptoms (Recalled from ER Triage Doc. by RN): Chest pain and difficulty breathing - History of Present Illness HPI narrative: pt with sob and ant chest pain with rece
--- NOTE | 2017-06-05 21:55 | ED_ITS ---
ED Disposition Clinical Impression: CAD (coronary artery disease) Qualifiers: Coronary Disease-Associated Artery/Lesion type: unspecified vessel or lesion type [place] vs. transplanted heart: [place] heart Associated angina: with unspecified angina Qualified Code(s): I25.119 - Atherosclerotic heart disease of [place] coronary artery with unspecified angina pectoris Disposition: Home, Self-Care Condition on Discharge: Good Additional Instructions: see dr pascal at 2 pm 06/06/17 Referrals: Kumar Fagan MD [Primary Care Provider] - - Critical Care Critical Care Time: No Attestation: On 06/05/17, the high probability of a clinically significant, sudden or life threatening deterioration of the following system(s) required my full and direct attention, intervention and personal management. The time I documented below is in addition to time spent performing reported procedures but includes the following listed in this critical care notation. Medical Decision Making - Medical Records Medical records reviewed: Yes: I reviewed the patient's medical records. - Anjel Inquiry Pt receiving controlled substance: No Vital Signs: 06/05/17 20:35 06/05/17 21:21 06/05/17 22:02 Temperature 97.8 F Temperature Source Oral Pulse Rate [Right Radial] 61 74 63 Respiratory Rate 16 16 14 Blood Pressure [Right Arm] 147/84 121/71 127/77 Blood Pressure Mean [Right Arm] 105 87 93 Blood Pressure Source [Right Arm] Automatic Cuff Automatic Cuff Automatic Cuff Blood Pressure Position [Right Arm] Sitting Sitting Sitting 02 Sat by Pulse Oximetry 98 96 97 Oxygen Delivery Method Room Air Room Air - Lab Data Lab results reviewed: Yes: I reviewed the patient's lab results. Lab Results 06/05/17 20:50: Sodium 140, Potassium 3.7, Chloride 103, Carbon Dioxide 28, Anion Gap 12.7, BUN 15, Creatinine 1.06, Estimated Creat Clear 75, Estimated GFR 72, Est GFR ( Amer) 87, Glucose 91, Calcium 9.4, Total Bilirubin 1.3 H, AST 23, ALT 31, Alkaline Phosphatase 95, Total Creatine Kinase 67, CK-MB (CK- 2) 0.7 D, CK-MB (CK-2) Rel Index 1.0, Troponin I < 0.02, Total Protein 8.1, Albumin 4.2, Globulin 3.9 H, Albumin/Globulin Ratio 1.1 06/05/17 20:50: WBC 8.5, RBC 5.00, Hgb 16.6, Hct 49.5, MCV 98.9 H, MCH 33.1 H, MCHC 33.5, RDW 13.3, Plt Count 286, MPV 7.4, Neut % (Auto) 67.3, Lymph % (Auto) 24.5, [place] % (Auto) 4.7, Eos % (Auto) 2.8, Baso % (Auto) 0.6, Neut # (Auto) 5.7 , Lymph # (Auto) 2.1, [place] # (Auto) 0.4, Eos # (Auto) 0.2, Baso # (Auto) 0.1 Result diagrams: 06/05/17 20:50 06/05/17 20:50 Orders (Tests/Meds): ED MEDICATIONS Discontinued Medications Generic Name Dose Route Start Last Admin Trade Name Freq PRN Reason Stop Dose Admin Aspirin 243 mg 06/05/17 20:49 06/05/17 20:49 Aspirin 81mg Chewable Tablet PO 06/05/17 20:50 243 mg ONCE ONE Administration Furosemide 40 mg 06/05/17 21:59 06/05/17 22:01 Lasix 40mg/4ml Vial IV 06/05/17 22:00 40 mg ONCE ONE Administration ORDERS Category Date Time Status XR chest portable Stat Exams 06/05/17 20:47 Taken ECG Request by /Nse Stat Y 06/05/17 20:47 Ordered - Radiology Data #1 Image(s): Chest Image Reviewed: Yes I reviewed the patient's radiology image Preliminary Findings: Abnormal (changes lt base) - ECG Data Tracing #1 I reviewed thi
[2017-06-05 22:02] VITALS: BP 127/77; PULSE 63; RESP 14; O2SAT 97
[2017-06-05 22:08] LABS: Basophils # 0.1 K/mm3 (0-0.2); Basophils % 0.6 % (0.1-2.0); Eosinophils # 0.2 K/mm3 (0.0-0.4); Eosinophils % 2.8 % (0.1-12.0); Hematocrit 49.5 % (42.0-52.0); Hemoglobin 16.6 g/dL (14.1-18.0); Lymphocytes # 2.1 K/mm3 (0.7-4.5); Lymphocytes % 24.5 K/mm3 (10-50); Mean Corpuscular HGB Conc 33.5 g/dL (31.8-35.4); Mean Corpuscular Hemoglobin 33.1 pg (27.0-31.2); Mean Corpuscular Volume 98.9 fl (80-94); Mean Platelet Volume 7.4 fl (7.4-10.4); Monocytes # 0.4 K/mm3 (0.1-1.0); Monocytes % 4.7 % (1.7-9.3); Neutrophils # 5.7 K/mm3 (1.8-7.8); Neutrophils % 67.3 % (37.0-80.0); Platelet Count 286 K/mm3 (142-424); Red Cell Distribution Width 13.3 % (11.5-17.5); White Blood Count 8.5 K/mm3 (4.8-10.8)
[2017-06-05 23:02] VITALS: BP 135/70; PULSE 67; RESP 14; TEMP 36.9; O2SAT 98
== END 2017-06-05 23:03 | disposition home or self-care (01) ==
PROVIDERS: Emergency Provider Emergency Medicine; Family Provider Internal Medicine Adolescent Medicine; PCP Emergency Medicine
DX: I25.119 Atherosclerotic heart disease of native coronary artery with unspecified angina pectoris (principal); Z95.5 Presence of coronary angioplasty implant and graft; K21.9 Gastro-esophageal reflux disease without esophagitis; Z87.891 Personal history of nicotine dependence
CPT/HCPCS: 71045; 80053; 82550; 82553; 84484; 85025; 93005; 96374; 99284

== ENCOUNTER → 2017-06-27 13:04 | Outpatient (CLI) | payer MEDICAID, SELFPAY ==
[2017-06-27 13:39] LABS: Anion Gap 13.3 mEq/L (5-15); Blood Urea Nitrogen 10 mg/dL (7-18); Carbon Dioxide 28 mmol/L (21.0-32.0); Chloride 106 mmol/L (98-107); Creatinine,Serum 1.07 mg/dL (0.70-1.30); Estimated Glomerular Filt Rate 71 ml/min (>60); GFR (African American) 87 ML/MIN (>60); Glucose 95 mg/dL (74-106); Potassium 4.3 mmoL/L (3.5-5.1); Sodium 143 mmol/L (136-145)
== END ==
PROVIDERS: Family Provider Internal Medicine Adolescent Medicine; PCP Emergency Medicine; Visit Provider Internal Medicine
DX: I25.10 Atherosclerotic heart disease of native coronary artery without angina pectoris (principal); I10 Essential (primary) hypertension; E78.5 Hyperlipidemia, unspecified; E87.6 Hypokalemia; F41.9 Anxiety disorder, unspecified
CPT/HCPCS: 36415; 80048

== ENCOUNTER → 2017-07-12 10:12 | Outpatient (CLI) | payer MEDICAID, SELFPAY ==
--- NOTE | 2017-07-12 10:14 | US_ITS ---
US kidney retroperitoneal comp HISTORY: ITS.REASON: RT RENAL MASS ORDERING PHYSICIAN: Brody Andrade MD PATIENT AGE: 56 years COMPARISON: 06/28/2017 FINDINGS: The right kidney measures 9 x 5.5 x 6.9 cm. There is some mild cortical thinning along upper pole the right kidney. No hydronephrosis. With great difficulty, there was visualization of a complex cyst along the anterior aspect of the right kidney at 2 cm corresponding to the CT abnormality. This was difficult to image technically. The rivera of the cyst has a somewhat irregular contour. The left kidney is 10 x 6 x 5.5 cm and has an unremarkable appearance. No hydronephrosis. IMPRESSION: There is a 2 cm complex cystic lesion involving the anterior aspect of the right kidney corresponding to the CT abnormality. This is difficult to image technically but does not appear to represent a simple cyst. Consider MRI of the kidneys without and with contrast for more thorough evaluation. If this is not performed then, would at least recommend a [address] follow-up without and with contrast.
== END ==
PROVIDERS: Family Provider Internal Medicine Adolescent Medicine; PCP Emergency Medicine; Visit Provider Internal Medicine Adolescent Medicine
DX: N28.89 Other specified disorders of kidney and ureter (principal)
CPT/HCPCS: 76770

== ENCOUNTER → 2017-07-19 16:14 | Outpatient (CLI) | payer MEDICAID, SELFPAY ==
[2017-07-19 16:40] LABS: Creatine Kinase 73 U/L (39-308); Troponin I < 0.02 ng/ml (0.00-0.06)
== END ==
PROVIDERS: Visit Provider Physician Assistant
DX: I20.0 Unstable angina (principal)
CPT/HCPCS: 36415; 82550; 84484

== ENCOUNTER → 2017-08-14 11:44 | Outpatient (CLI) | payer MEDICAID, SELFPAY ==
--- NOTE | 2017-08-14 11:45 | NM_ITS ---
SPECT MYOCARDIAL PERFUSION SCAN, REST AND STRESS: EXERCISE STRESS: [facility] REVIEW QGS EF AND WALL MOTION EVALUATION: QPS - PERFUSION EVALUATION: HISTORY:CAD, Chest pain, SOB PROCEDURE: Rest imaging performed after administration of10.48 millicuries Tc MIBI. Dose administered at12:00 p.m., with imaging thereafter. Stress imaging was then performed [id number] minutes 41 seconds of exercise stress. The patient achieved a heart grav094 with projected heart rate of139 . Resting BP140/80 with stress 200/90. At maximum exercise stress,32.3 millicuries Tc MIBI administered at1:25pm a.m. with [id number] minutes thereafter. FINDINGS: Perfusion Evaluation: The single slice spect images as well as the [facility] bull's-eye data summary were reviewed. Wall Motion and Ejection Fraction Evaluation: Gated SPECT review and analysis used to evaluate these features. There is a 60 % left ventricular ejection fraction. There seems to be good wall motion Uniform myocardial activity at both stress and rest gated images calculated ejection fraction of 60% with normal wall motion IMPRESSION: No scintigraphic evidence of exercise-induced myocardial ischemia with normal ejection fraction and normal wall motion
--- NOTE | 2017-08-14 14:22 | HMH.ITSHM ---
ASA ALPRAZOLAM OMEPRAZOLE
== END ==
PROVIDERS: Family Provider Internal Medicine Adolescent Medicine; PCP Emergency Medicine; Visit Provider Internal Medicine
DX: I20.9 Angina pectoris, unspecified (principal); R06.00 Dyspnea, unspecified
CPT/HCPCS: 78452; 93017; A9502

== ENCOUNTER 2017-09-12 12:51 | Outpatient (RCR) | payer MEDICAID, SELFPAY | END 2017-10-12 15:07 | disposition home or self-care (01) | LOC: PT 12:51 | PROVIDERS: Visit Provider Internal Medicine | DX: Z95.5 Presence of coronary angioplasty implant and graft (principal) | CPT/HCPCS: 93005 ==

== ENCOUNTER → 2018-01-04 16:29 | Outpatient (CLI) | payer MEDICAID, SELFPAY ==
[2018-01-05 15:12] LABS: Amphetamine/Metha Screen,Urine Negative ng/mL (<1000); Barbiturates Screen,Urine Negative ng/mL (<200); Benzodiazepines Screen,Urine Positive ng/mL (<200); Cannabinoid Screen,Urine Negative ng/mL (<50); Cocaine Screen,Urine Negative ng/mL (<300); Methadone Screen,Urine Negative ng/mL (<300); Opiate Screen,Urine Negative ng/mL (<300); Phencyclidine Screen,Urine Negative ng/mL (<25)
[2018-01-10 13:12] LABS: Alprazolam Negative (Cutoff=100); Benzodiazepines Negative ng/mL (Cutoff=100); Clonazepam Negative (Cutoff=100); Flurazepam Negative (Cutoff=100); Lorazepam Negative (Cutoff=100); Midazolam Negative (Cutoff=100); Temazepam Negative (Cutoff=100); Triazolam Negative (Cutoff=100)
== END ==
PROVIDERS: PCP Emergency Medicine; Visit Provider Emergency Medicine
DX: Z79.899 Other long term (current) drug therapy (principal)
CPT/HCPCS: 80305; 80346

== ENCOUNTER → 2018-03-27 10:03 | Outpatient (CLI) | payer MEDICAID, SELFPAY ==
--- NOTE | 2018-03-27 10:06 | XR_ITS ---
XR chest 2V HISTORY: Chest pain, smoker ITS.REASON: . ORDERING PHYSICIAN: BRIDGETT Sesay PATIENT AGE: 57 years COMPARISON: None FINDINGS: The cardiomediastinal silhouette and pulmonary vascularity are within normal limits. The lungs are clear without infiltrates, suspicious nodules, or pleural effusions. Coronary artery calcification and/or stent noted No acute bony abnormalities. IMPRESSION: No change with no acute finding
[2018-03-27 11:32] LABS: Basophils % 0.5 % (0.1-2.0); Eosinophils # 0.3 K/mm3 (0.0-0.4); Eosinophils % 3.6 % (0.1-12.0); Hematocrit 48.3 % (42.0-52.0); Lymphocytes # 1.6 K/mm3 (0.7-4.5); Lymphocytes % 20.2 % (10-50); Mean Corpuscular HGB Conc 33.2 g/dL (31.8-35.4); Mean Corpuscular Volume 99.3 fl (80-94); Mean Platelet Volume 7.2 fl (7.4-10.4); Monocytes # 0.4 K/mm3 (0.1-1.0); Monocytes % 5.3 % (1.7-9.3); Neutrophils # 5.5 K/mm3 (1.8-7.8); Neutrophils % 70.4 % (37.0-80.0); Platelet Count 270 K/mm3 (142-424); Red Blood Count 4.86 M/mm3 (4.60-6.20); Red Cell Distribution Width 13.3 % (11.5-17.5); White Blood Count 7.9 K/mm3 (4.8-10.8)
== END ==
PROVIDERS: PCP Emergency Medicine; Visit Provider Physician Assistant
DX: E78.5 Hyperlipidemia, unspecified (principal); F17.200 Nicotine dependence, unspecified, uncomplicated; I10 Essential (primary) hypertension; I25.10 Atherosclerotic heart disease of native coronary artery without angina pectoris; J44.9 Chronic obstructive pulmonary disease, unspecified; K21.9 Gastro-esophageal reflux disease without esophagitis; R06.00 Dyspnea, unspecified; Z95.5 Presence of coronary angioplasty implant and graft
CPT/HCPCS: 36415; 71046; 85025

== ENCOUNTER → 2018-04-04 13:42 | Outpatient (CLI) | payer MEDICAID, SELFPAY ==
[2018-04-04 14:51] LABS: Alanine Aminotransferase 22 U/L (12-78); Albumin Level 4.1 gm/dL (3.4-5.0); Albumin/Globulin Ratio 1.1 (1.1-1.8); Alkaline Phosphatase 109 U/L (46-116); Anion Gap 13.2 mEq/L (5-15); Aspartate Amino Transferase 19 U/L (15-37); Blood Urea Nitrogen 18 mg/dL (7-18); Calcium 9.6 mg/dL (8.5-10.1); Carbon Dioxide 27 mmol/L (21.0-32.0); Chloride 104 mmol/L (98-107); Creatinine,Serum 1.16 mg/dL (0.70-1.30); Estimated Glomerular Filt Rate 65 ml/min (>60); GFR (African American) 79 ML/MIN (>60); Globulin 3.9 gm/dl (1.3-3.2); Glucose 98 mg/dL (74-106); Lipase 264 u/L (73-393); Potassium 4.2 mmoL/L (3.5-5.1); Sodium 140 mmol/L (136-145)
== END ==
PROVIDERS: Visit Provider Emergency Medicine
DX: R10.9 Unspecified abdominal pain (principal); K21.9 Gastro-esophageal reflux disease without esophagitis; R53.83 Other fatigue
CPT/HCPCS: 80053; 83690

== ENCOUNTER → 2018-04-13 07:56 | Outpatient (CLI) | payer MEDICAID, SELFPAY ==
--- NOTE | 2018-04-13 07:57 | US_ITS ---
US abdomen complete HISTORY: Abdominal pain, indigestion ITS.REASON: GERD ORDERING PHYSICIAN: Kumar Fagan MD PATIENT AGE: 57 years COMPARISON: None FINDINGS: PANCREAS:The pancreas is not well delineated due to overlying bowel gas. Consider CT scan for evaluation of the pancreas if clinically warranted LIVER:No focal liver lesions demonstrated. Homogeneous echogenicity. No intrahepatic biliary ductal dilatation evident RIGHT KIDNEY:Unremarkable. Normal size and echogenicity. No hydronephrosis LEFT KIDNEY:Unremarkable. No hydronephrosis. Normal size and echogenicity. There is a small cyst along the lower pole left kidney at 10 mm and another small cyst in the mid polar region at 7 mm. GALLBLADDER:No gallstones, gallbladder wall thickening, pericholecystic fluid, or biliary dilatation. There is a small hyperechoic focus along the posterior wall the gallbladder at 4 mm and may be due to small polyp. AORTA:No evidence of aneurysmal dilatation. SPLEEN:Unremarkable. Normal size and echogenicity ASCITES:None demonstrated. IMPRESSION: 1. Small gallbladder polyp. 2. Small left renal cysts 3. Incomplete visualization of the pancreas
== END ==
PROVIDERS: PCP Emergency Medicine; Visit Provider Emergency Medicine
DX: K21.9 Gastro-esophageal reflux disease without esophagitis (principal); R10.9 Unspecified abdominal pain
CPT/HCPCS: 76700

== ENCOUNTER → 2018-04-30 07:44 | Outpatient (CLI) | payer MEDICAID, SELFPAY ==
--- NOTE | 2018-04-30 07:47 | CT_ITS ---
CT abdomen w con CLINICAL INDICATION: Upper abdominal pain ITS.REASON: u/s unable to evaluate pancreas ORDERING PHYSICIAN: Kumar Fagan MD PATIENT AGE: 57 years COMPARISON: None TECHNIQUE: Axial images obtained with sagittal and coronal reformats. All CT scans at the facility use one or more dose reduction, viz: automated exposure control, ma/kV adjustment per patient size (including targeted exams where dose is matched to indication, i.e. head), or iterative reconstruction technique. PROCEDURE: Oral Contrast: Redicat IV Contrast: 75 mL's Optiray 350. FINDINGS: Lower chest: Minimal atelectatic or fibrotic change in the lingula. There are 2 small isodensity within the hepatic dome 3 and 5 mm one in the right hepatic lobe and one in the left hepatic lobe. These are too small to characterize. The liver is otherwise unremarkable. The gallbladder, spleen, adrenal glands, and pancreas have an unremarkable appearance. There are a few small epigastric nodes. No pancreatic mass abnormal fluid collection or peripancreatic inflammation evident. No ductal dilatation. There is an indeterminate isodense lesion of the right kidney which measures 2 cm with an internal density of 22 Hounsfield units. Recent ultrasound of the right upper quadrant did not demonstrate any right renal cysts. However, dedicated renal ultrasound is recommended to determine if this is cystic or solid lesion. There is some minimal hyperdensity along the lower pole of this area. Base subcentimeter cyst is present in the lower pole the right kidney and there is an exophytic isodense lesion of the left kidney at 8 mm as well as a 12 mm cyst along the lower pole. No intestinal obstruction or free air. No acute bony findings. There is mild amount of retained colonic feces IMPRESSION: 1. Unremarkable appearing pancreas. 2. There is an indeterminant 2 cm isodense lesion of the right kidney. There is also an indeterminate 8 mm isodense exophytic lesion of the left kidney posteriorly. Bilateral renal ultrasound suggested for further evaluation.
[2018-04-30 08:03] LABS: Blood Urea Nitrogen 13 mg/dL (7-18); Creatinine,Serum 1.28 mg/dL (0.70-1.30); Estimated Glomerular Filt Rate 58 ml/min (>60); GFR (African American) 70 ML/MIN (>60)
== END ==
PROVIDERS: PCP Emergency Medicine; Visit Provider Emergency Medicine
DX: R10.9 Unspecified abdominal pain (principal)
CPT/HCPCS: 36415; 74160; 82565; 84520; Q9967

== ENCOUNTER 2018-08-02 00:24 | Emergency (ER) | payer MEDICAID, SELFPAY ==
[2018-08-02 00:34] VITALS: BP 131/74; PULSE 57; RESP 20; TEMP 36.8; O2SAT 98; BMI 24.3
--- NOTE | 2018-08-02 01:21 | HMH.EDDENT ---
ED Disposition Clinical Impression: Dental caries, Gingival abscess Disposition: Home, Self-Care Condition on Discharge: Good Instructions: DI for Dental Pain Additional Instructions: see pcp and dentist Prescriptions: Clindamycin HCl [Clindamycin HCl 300mg Cap] 300 mg PO Q8 #30 cap Referrals: Kumar Fagan MD [Primary Care Provider] - - Critical Care Critical Care Time: No Attestation: On 08/02/18, the high probability of a clinically significant, sudden or life threatening deterioration of the following system(s) required my full and direct attention, intervention and personal management. The time I documented below is in addition to time spent performing reported procedures but includes the following listed in this critical care notation. Medical Decision Making - Medical Records Medical records reviewed: Yes: I reviewed the patient's medical records. - Anjel Inquiry Pt receiving controlled substance: No Vital Signs: 08/02/18 00:34 Temperature 98.3 F Temperature Source Oral Pulse Rate [Right] 57 L Respiratory Rate 20 Blood Pressure [Right Arm] 131/74 Blood Pressure Mean [Right Arm] 93 02 Sat by Pulse Oximetry 98 Dental HPI - General Chief complaint: Dental/Oral Stated complaint: Toothache Time Seen by Provider: 08/02/18 01:21 Mode of Arrival: Ambulatory Source of Information: Patient, Medical Record Limitations: No Limitations Description of Symptoms (Recalled from ER Triage Doc. by RN): Pt states he believes he has an abcess in his tooth on the right side. - History of Present Illness HPI Narrative: rt sided upper dental pain over the last few days Complaint: tooth pain Onset (ago): day(s) Severity: moderate Context: history of dental caries, poor dental care Associated symptoms: gum swelling Treatment prior to arrival: none - Related Data Home Medications Medication Instructions Recorded Confirmed aspirin 81 mg chewable tablet 124 mg PO DAILY tab 09/26/17 08/02/18 Pantoprazole Sodium [Protonix 40mg 40 mg PO DAILY 04/11/18 08/02/18 tablet] Previous Rx's Medication Instructions Recorded prasugrel 10 mg tablet 10 mg PO DAILY #30 tab 05/08/18 alprazolam 0.5 mg tablet 0.5 mg PO TID #90 tab 07/02/18 Clindamycin HCl [Clindamycin HCl 300 mg PO Q8 #30 cap 08/02/18 300mg Cap] Allergies Allergy/AdvReac Type Severity Reaction Status Date / Time Penicillins [PENICILLINS] Allergy Mild Verified 07/02/18 10:02 atorvastatin [From Lipitor] Allergy Verified 07/02/18 10:02 nitroglycerin AdvReac Verified 07/02/18 10:02 ticagrelor [From Brilinta] AdvReac Verified 07/02/18 10:02 [facility] History - Hepatitis A Screen Drug use history?: No High risk sexual behaviors?: No History of sexually transmitted infection?: No Currently employed?: No Childcare worker?: No Do you have indoor plumbing?: Yes Do you have electricity?: Yes Attestation statement:: This patient has been screened for Hepatitis A risk factors. I have reviewed the patient's past medical history: Yes Medical History: Reports:: Anxiety, Chronic Obstructive Pulmonary Disease (COPD), Coronary Artery Disease, Depression, Gastroesophageal Reflux Disease(GERD), Hyperlipidemia, Hypertension Denies:: Cancer, Diabetes Mellitus Type 1, Diabetes Mellitus Type 2, Internal Pacemaker, MRSA, Seizures Laterality Cases: Right: Other Other Surgeries: Yes: No Previous Surgery, Angiogram, Cardiac Catheterization, Coronary Stent, Other. No: Pacemaker Amputation: No Fractures: Yes (R tib/fib fx repair) Comment: fx RT leg,plates and screws x 3 - Social History Smoking Status: Current every day smoker Tobacco Type: cigarettes # Packs/Day (cigarettes): 1 Alcohol Intake: never Alcohol Intake Frequency:: other Substance Use Type: denies use Occupational Status: unemployed Housing: house Household Members: family - Psychiatric History Expresses thoughts of harming self/others: None Suicide Haim
--- NOTE | 2018-08-02 01:24 | ED_ITS ---
ED Disposition Clinical Impression: Dental caries, Gingival abscess Disposition: Home, Self-Care Condition on Discharge: Good Instructions: DI for Dental Pain Additional Instructions: see pcp and dentist Prescriptions: Clindamycin HCl [Clindamycin HCl 300mg Cap] 300 mg PO Q8 #30 cap Referrals: Kumar Fagan MD [Primary Care Provider] - - Critical Care Critical Care Time: No Attestation: On 08/02/18, the high probability of a clinically significant, sudden or life threatening deterioration of the following system(s) required my full and direct attention, intervention and personal management. The time I documented below is in addition to time spent performing reported procedures but includes the following listed in this critical care notation. Medical Decision Making - Medical Records Medical records reviewed: Yes: I reviewed the patient's medical records. - Anjel Inquiry Pt receiving controlled substance: No Vital Signs: 08/02/18 00:34 Temperature 98.3 F Temperature Source Oral Pulse Rate [Right] 57 L Respiratory Rate 20 Blood Pressure [Right Arm] 131/74 Blood Pressure Mean [Right Arm] 93 02 Sat by Pulse Oximetry 98 Dental HPI - General Chief complaint: Dental/Oral Stated complaint: Toothache Time Seen by Provider: 08/02/18 01:21 Mode of Arrival: Ambulatory Source of Information: Patient, Medical Record Limitations: No Limitations Description of Symptoms (Recalled from ER Triage Doc. by RN): Pt states he believes he has an abcess in his tooth on the right side. - History of Present Illness HPI Narrative: rt sided upper dental pain over the last few days Complaint: tooth pain Onset (ago): day(s) Severity: moderate Context: history of dental caries, poor dental care Associated symptoms: gum swelling Treatment prior to arrival: none - Related Data Home Medications Medication Instructions Recorded Confirmed aspirin 81 mg chewable tablet 124 mg PO DAILY tab 09/26/17 08/02/18 Pantoprazole Sodium [Protonix 40mg 40 mg PO DAILY 04/11/18 08/02/18 tablet] Previous Rx's Medication Instructions Recorded prasugrel 10 mg tablet 10 mg PO DAILY #30 tab 05/08/18 alprazolam 0.5 mg tablet 0.5 mg PO TID #90 tab 07/02/18 Clindamycin HCl [Clindamycin HCl 300 mg PO Q8 #30 cap 08/02/18 300mg Cap] Allergies Allergy/AdvReac Type Severity Reaction Status Date / Time Penicillins [PENICILLINS] Allergy Mild Verified 07/02/18 10:02 atorvastatin [From Lipitor] Allergy Verified 07/02/18 10:02 nitroglycerin AdvReac Verified 07/02/18 10:02 ticagrelor [From Brilinta] AdvReac Verified 07/02/18 10:02 [facility] History - Hepatitis A Screen Drug use history?: No High risk sexual behaviors?: No History of sexually transmitted infection?: No Currently employed?: No Childcare worker?: No Do you have indoor plumbing?: Yes Do you have electricity?: Yes Attestation statement:: This patient has been screened for Hepatitis A risk factors. I have reviewed the patient's past medical history: Yes Medical History: Reports:: Anxiety, Chronic Obstructive Pulmonary Disease (COPD), Coronary Artery Disease, D
[2018-08-02 01:25] VITALS: BP 125/80; PULSE 60; RESP 20; TEMP 37; O2SAT 98
== END 2018-08-02 01:29 | disposition home or self-care (01) ==
PROVIDERS: Emergency Provider Emergency Medicine; PCP Emergency Medicine
DX: K04.7 Periapical abscess without sinus (principal); K02.9 Dental caries, unspecified; J44.9 Chronic obstructive pulmonary disease, unspecified; K21.9 Gastro-esophageal reflux disease without esophagitis; F41.8 Other specified anxiety disorders; Z88.0 Allergy status to penicillin; F17.210 Nicotine dependence, cigarettes, uncomplicated
CPT/HCPCS: 99281

== ENCOUNTER 2018-09-23 18:49 | Observation (INO) ==
[2018-09-23 19:18] LABS: Basophils % 0.8 % (0.1-2.0); Eosinophils % 5.2 % (0.1-12.0); Hematocrit 45.4 % (42.0-52.0); Hemoglobin 15.1 g/dL (14.1-18.0); Lymphocytes % 31.7 % (10-50); Mean Corpuscular HGB Conc 33.2 g/dL (31.8-35.4); Mean Corpuscular Volume 95.3 fl (80-94); Mean Platelet Volume 6.8 fl (7.4-10.4); Monocytes % 5.8 % (1.7-9.3); Neutrophils # 4.8 K/mm3 (1.8-7.8); Platelet Count 268 K/mm3 (142-424); Red Blood Count 4.76 M/mm3 (4.60-6.20); Red Cell Distribution Width 13.1 % (11.5-17.5); White Blood Count 8.6 K/mm3 (4.8-10.8)
[2018-09-23 19:19] LABS: Basophils # 0.1 K/mm3 (0-0.2); Eosinophils # 0.5 K/mm3 (0.0-0.4); Lymphocytes # 2.7 K/mm3 (0.7-4.5); Monocytes # 0.5 K/mm3 (0.1-1.0)
[2018-09-23 19:26] LABS: Anion Gap 13.5 mEq/L (5-15); Blood Urea Nitrogen 17 mg/dL (7-18); Calcium 9.5 mg/dL (8.5-10.1); Carbon Dioxide 27 mmol/L (21.0-32.0); Chloride 106 mmol/L (98-107); Glucose 81 mg/dL (74-106); Sodium 142 mmol/L (136-145)
--- NOTE | 2018-09-23 20:58 | Emergency Department Note ---
ED Disposition Clinical Impression: Angina at rest, Tobacco use disorder, Unstable angina Disposition: Admitted as Observation Condition on Discharge: Good Referrals: Kumar Fagan MD [Primary Care Provider] - - Critical Care Critical Care Time: No Attestation: On 09/23/18, the high probability of a clinically significant, sudden or life threatening deterioration of the following system(s) required my full and direct attention, intervention and personal management. The time I documented below is in addition to time spent performing reported procedures but includes the following listed in this critical care notation. Medical Decision Making - Medical Records Medical records reviewed: Yes: I reviewed the patient's medical records. - Anjel Inquiry Pt receiving controlled substance: No Vital Signs: 09/23/18 18:50 09/23/18 19:20 Temperature 97.7 F Temperature Source Oral Pulse Rate [Left Radial] 83 59 L Respiratory Rate 18 20 Blood Pressure [Right Arm] 147/81 H 136/86 Blood Pressure Mean [Right Arm] 103 102 Blood Pressure Source [Right Arm] Automatic Cuff Automatic Cuff Blood Pressure Position [Right Arm] Sitting Supine 02 Sat by Pulse Oximetry 98 97 Oxygen Delivery Method Room Air Room Air - Lab Data Lab results reviewed: Yes: I reviewed the patient's lab results. Lab Results 09/23/18 19:00: WBC 8.6, RBC 4.76, Hgb 15.1, Hct 45.4, MCV 95.3 H, MCH 31.6 H, MCHC 33.2, RDW 13.1, Plt Count 268, MPV 6.8 L, Neut % (Auto) 55.0, Lymph % (Auto) 31.7, [place] % (Auto) 5.8, Eos % (Auto) 5.2, Baso % (Auto) 0.8, Neut # (Auto) 4.8, Lymph # (Auto) 2.7, [place] # (Auto) 0.5, Eos # (Auto) 0.5 H, Baso # (Auto) 0.1 09/23/18 19:00: Sodium 142, Potassium 4.5, Chloride 106, Carbon Dioxide 27, Anion Gap 13.5, BUN 17, Creatinine 1.19, Estimated Creat Clear 67, Estimated GFR 63, Est GFR ( Amer) 76, Glucose 81, Calcium 9.5, Troponin I < 0.02 Result diagrams: 09/23/18 19:00 09/23/18 19:00 Orders (Tests/Meds): ED MEDICATIONS Generic Name Dose Route Start Last Admin Trade Name Freq PRN Reason Stop Dose Admin Ranolazine 500 mg 09/24/18 21:10 Ranexa 500mg Er Tablet PO 09/24/18 21:11 ONCE ONE Discontinued Medications Generic Name Dose Route Start Last Admin Trade Name Freq PRN Reason Stop Dose Admin Nitroglycerin 1 gm 09/23/18 21:09 Nitroglycerin 1 Inch Oint Udp TD 09/23/18 21:10 ONCE ONE ORDERS Category Date Time Status Chest XR 2 view (NOT portable) [XR chest 2V] Stat Exams 09/23/18 18:55 Taken Troponin I Timed Lab 09/23/18 20:53 Received - Radiology Data #1 Image(s): Chest Image Reviewed: Yes I reviewed the patient's radiology image Preliminary Findings: Normal/NAD - ECG Data Tracing #1 Normal Sinus Rhythm: Yes Ischemic changes: non-specific ST-T wave changes - Physician Consults Physician Consulted: gwyn Reason -: Pt condition Chest Pain HPI - General Chief Complaint: Chest Pain Stated Complaint: CHEST PAIN Time Seen by Provider: 09/23/18 20:00 Mode of Arrival: Ambulatory Source of Information: Patient Limitations: No Limitations Description of Symptoms (Recalled from ER Triage Doc. by RN): TO ED PER PVT CAR WITH C/O PRESSURE TYPE CHEST PAIN X 3 DAYS STATES PAIN RADIATES INTO LT SIDE JAW, +SOB, +NAUSEA. STATES PAIN WORSE WITH EXERTION. PT STATES HX OF STENTS LAST YEAR CALLED DR RAHMAN AND TOLD TO COME TO ED. CPTA ASA 162MG - History of Present Illness HPI narrative: pt with hx of cad but over the last 2 days has inc pain with rad to jaw - positive tob complaint: chest pain indicative of cardiac Onset (ago): day(s) Duration: intermittent Activity at onset: during rest Pain location: substernal Quality: tightness Pain radiation: jaw/teeth Risk Factors for CAD: Hypertension, Family Hx of CAD, Smoking Treatments prior to or on arrival for Cardiac Chest Pain: none - BECKY Score for Non-Stemi Age of Patient: 50-59 years old Heart Rate: 70-89 bpm Systolic Blood Pressure: 140-159 mmHg Serum Creatinine: 0.80-1.19 mg/dl CHF [place] Class: I-No CHF Other Risk Factors: None Non-Stemi Risk Score: 81 - Related Data Prior Cardiac Testing/Procedures: Stenting Home Medications Medication Instructions Recorded Confirmed aspirin 81 mg chewable tablet 124 mg PO DAILY tab 09/26/17 09/23/18 Dicyclomine HCl [Bentyl 10mg 10 mg PO TID 09/23/18 09/23/18 capsule] Dicyclomine HCl [Bentyl 10mg 10 mg PO TID 09/23/18 09/23/18 capsule] Previous Rx's Medication Instructions Recorded prasugrel 10 mg tablet 10 mg PO DAILY #30 tab 05/08/18 Allergies Allergy/AdvReac Type Severity Reaction Status Date / Time Penicillins [PENICILLINS] Allergy Mild Verified 08/31/18 23:31 atorvastatin [From Lipitor] Allergy Verified 08/31/18 23:31 nitroglycerin AdvReac Verified 08/31/18 23:31 ticagrelor [From Brilinta] AdvReac Verified 08/31/18 23:31 [facility] History - Hepatitis A Screen Drug use history?: No High risk sexual behaviors?: No History of sexually transmitted infection?: No Currently employed?: No Childcare worker?: No Do you have indoor plumbing?: Yes Do you have electricity?: Yes Attestation statement:: This patient has been screened for Hepatitis A risk factors. I have reviewed the patient's past medical history: Yes Medical History: Reports:: Anxiety, Chronic Obstructive Pulmonary Disease (COPD), Coronary Artery Disease, Depression, Gastroesophageal Reflux Disease(RADHA D), Hyperlipidemia, Hypertension Denies:: Cancer, Diabetes Mellitus Type 1, Diabetes Mellitus Type 2, Internal Pacemaker, MRSA, Seizures Laterality Cases: Right: Other Other Surgeries: Yes: No Previous Surgery, Angiogram, Cardiac Catheterization, Coronary Stent, Other. No: Pacemaker Amputation: No Fractures: Yes (R tib/fib fx repair) Comment: fx RT leg,plates and screws x 3 - Social History Smoking Status: Current every day smoker Tobacco Type: cigarettes # Packs/Day (cigarettes): 0 Alcohol Intake: never Alcohol Intake Frequency:: other Substance Use Type: denies use Occupational Status: unemployed Housing: house Household Members: family - Psychiatric History Pschychiatric History:: Reports:: Anxiety, Depression Family Hx:: Heart Attack, Hyperlipidemia, Hypertension ROS Obtained: Yes All systems reviewed & no additional complaints - Constitutional Constitutional: Denies fever(s) - Eyes Eyes: Denies change in vision - ENT Ears, Nose, Mouth, and Throat: Denies sore throat - Cardiovascular Cardiovascular: Reports as per HPI, Reports chest pain, Reports chest pain at rest, Reports radiating jaw, neck or arm pain - Respiratory Respiratory: No cough - Gastrointestinal Gastrointestingal: Denies: nausea - Genitourinary Male Genitourinary: Denies hematuria - Musculoskeletal Musculoskeletal: Denies joint pain - Integumentary/Breasts Skin/Breast: Denies rash - Neurologic Neurologic: Denies focal weakness Physical Exam - General General appearance: alert - Head Head exam: normocephalic - Eye Eye exam: Present: PERRL, EOMI - ENT ENT exam: Present: mucous membranes moist - Neck Neck exam: Present: trachea midline - Respiratory Respiratory exam: Present: normal lung sounds bilaterally. Absent: respiratory distress - Cardiovascular Cardiovascular exam: Present: regular rate, systolic murmur. Absent: rubs, gallop - Abdominal Exam Abdominal exam: Present: soft - Extremities Exam Extremities exam: Present: full ROM. Absent: calf tenderness - Neurological Exam Neurological exam: Present: alert, oriented X3, CN II-XII intact - Psychiatric Psychiatric exam: Present: normal affect - Skin Skin exam: Absent: rash
--- NOTE | 2018-09-23 23:14 | History & Physical Report ---
*Admission Date: 09/23/18 *Chief complaint: chest pain *History of present illness: this wm who has known cad with prev stents with over the last few days has chest pain with rad to jaw which is new - pt has been compliant with meds but has been using tob - pt was admitted with unstable angina for eval and treatment [facility] History I have reviewed the patient's past medical history: Yes Medical History: Reports:: Anxiety, Chronic Obstructive Pulmonary Disease (COPD), Coronary Artery Disease, Depression, Gastroesophageal Reflux Disease(GERD), Hyperlipidemia, Hypertension Denies:: Cancer, Diabetes Mellitus Type 1, Diabetes Mellitus Type 2, Internal Pacemaker, MRSA, Seizures *Have you ever received a pneumonia vaccine?: No *Have you received a flu vaccine this season?: No Laterality Cases: Right: Other Other Surgeries: Yes: No Previous Surgery, Angiogram, Cardiac Catheterization (2x with 2 stents), Coronary Stent, Other. No: Pacemaker Amputation: No Fractures: Yes (R tib/fib fx repair) - *Social History Educational Level: Attended High School Smoking Status: Current every day smoker Tobacco Type: cigarettes # Packs/Day (cigarettes): 1 Alcohol Intake: never Alcohol Intake Frequency:: other Substance Use Type: denies use *Occupational Status:: employed Housing: house Household Members: family *Travel in the last 8 weeks: None - Psychiatric History Expresses thoughts of harming self/others: None Suicide Plan Description: No Plan Pschychiatric History:: Reports:: Anxiety, Depression Family Hx:: Coronary Artery Disease, Heart Attack, Hyperlipidemia, Hypertension Review of Systems - Review of Systems Review of systems:: pertinent systems reviewed and negative unless documented below - Constitutional Denies fever(s) - Eyes Denies change in vision - ENT Denies sore throat - *Cardiovascular Reports chest pain at rest, Reports radiating jaw, neck or arm pain - *Respiratory Denies cough, Denies shortness of breath - *Gastrointestinal Denies abdominal pain - *Genitourinary Denies blood in urine - *Musculoskeletal Denies joint pain, Denies joint swelling - Integumentary/Breasts Denies rash - *Neurologic Denies localized weakness, Denies headache(s), Denies seizure-like activity - Psychiatric Reports anxiety Meds Home Medications Medication Instructions Recorded Confirmed Type aspirin 81 mg chewable tablet 162 mg PO DAILY tab 09/26/17 09/23/18 History prasugrel 10 mg tablet 10 mg PO DAILY #30 tab 05/08/18 09/23/18 Rx ALPRAZolam [Xanax 0.5mg tab] 0.5 mg PO TID 09/23/18 09/23/18 History Dicyclomine HCl [Bentyl 10mg 10 mg PO TID 09/23/18 09/23/18 History capsule] Allergies Allergy/AdvReac Type Severity Reaction Status Date / Time Penicillins [PENICILLINS] Allergy Mild Verified 08/31/18 23:31 atorvastatin [From Lipitor] Allergy Verified 08/31/18 23:31 nitroglycerin AdvReac Verified 08/31/18 23:31 ticagrelor [From Brilinta] AdvReac Verified 08/31/18 23:31 Exam Vital signs and Labs for Last 24 Hours: Temp Pulse Resp BP Pulse Ox 98.4 F 98 H 20 138/71 95 09/23/18 21:28 09/23/18 21:28 09/23/18 21:28 09/23/18 21:28 09/23/18 21:22 Laboratory Results - last 24 hr 09/23/18 19:00: WBC 8.6, RBC 4.76, Hgb 15.1, Hct 45.4, MCV 95.3 H, MCH 31.6 H, MCHC 33.2, RDW 13.1, Plt Count 268, MPV 6.8 L, Neut % (Auto) 55.0, Lymph % (Auto) 31.7, [place] % (Auto) 5.8, Eos % (Auto) 5.2, Baso % (Auto) 0.8, Neut # (Auto) 4.8, Lymph # (Auto) 2.7, [place] # (Auto) 0.5, Eos # (Auto) 0.5 H, Baso # (Auto) 0.1 09/23/18 19:00: Sodium 142, Potassium 4.5, Chloride 106, Carbon Dioxide 27, Anion Gap 13.5, BUN 17, Creatinine 1.19, Estimated Creat Clear 67, Estimated GFR 63, Est GFR ( Amer) 76, Glucose 81, Calcium 9.5, Troponin I < 0.02 09/23/18 20:53: Troponin I < 0.02 I & O for Last 24 hours: Intake & Output 09/21/18 09/22/18 09/23/18 09/24/18 11:59 11:59 11:59 11:59 Intake Total 220 / 220 Balance 220 / 220 Weight 151 lb 1 oz - Constitutional no acute distress, average body habitus - *Routine HEENT Exam Head: Present: normocephalic Eye: Present: EOMI, PERRL ENT: Present: mucous membranes dry - *Routine Neck Exam Present: supple. Absent: JVD - *Routine Respiratory Exam Present: CTA bilaterally - *Routine Cardiovascular Exam Present: RRR, murmur, S4 - *Routine Abdominal Exam Present: soft - *Routine Extremities Exam Present: full ROM. Absent: calf tenderness - *Routine Skin Exam Present: intact - *Routine Neurological Exam Present: alert, oriented X3, CN II-XII intact - Routine Psychiatric Exam Present: normal affect Assessment and Plan (1) Angina at rest Current visit: Yes Status: Acute Category: Medical Code(s): I20.8 - Other forms of angina pectoris (2) Tobacco use Current visit: Yes Status: Acute Category: Medical Code(s): Z72.0 - Tobacco use (3) COPD (chronic obstructive pulmonary disease) Current visit: Yes Status: Acute Category: Medical Code(s): J44.9 - Chronic obstructive pulmonary disease, unspecified
[2018-09-24 03:40] LABS: Basophils # 0.1 K/mm3 (0-0.2); Basophils % 0.9 % (0.1-2.0); Eosinophils # 0.5 K/mm3 (0.0-0.4); Eosinophils % 6.7 % (0.1-12.0); Hematocrit 43.9 % (42.0-52.0); Hemoglobin 14.2 g/dL (14.1-18.0); Lymphocytes # 2.7 K/mm3 (0.7-4.5); Lymphocytes % 36.8 % (10-50); Mean Corpuscular HGB Conc 32.3 g/dL (31.8-35.4); Mean Platelet Volume 7.1 fl (7.4-10.4); Monocytes # 0.5 K/mm3 (0.1-1.0); Monocytes % 6.7 % (1.7-9.3); Neutrophils # 3.7 K/mm3 (1.8-7.8); Platelet Count 254 K/mm3 (142-424); Red Blood Count 4.57 M/mm3 (4.60-6.20); Red Cell Distribution Width 13.2 % (11.5-17.5); White Blood Count 7.5 K/mm3 (4.8-10.8)
[2018-09-24 04:05] LABS: Anion Gap 11.8 mEq/L (5-15); Blood Urea Nitrogen 18 mg/dL (7-18); Calcium 8.8 mg/dL (8.5-10.1); Carbon Dioxide 27 mmol/L (21.0-32.0); Chloride 108 mmol/L (98-107); Cholesterol 145 mg/dL (140-200); Glucose 82 mg/dL (74-106); HDL Cholesterol 29 mg/dL (27-67); LDL Cholesterol 61 mg/dL (0-130); Sodium 143 mmol/L (136-145); Triglycerides 274 mg/dL (30-200); VLDL Cholesterol 55 mg/dL (0-40)
--- NOTE | 2018-09-24 07:27 | Consult Report ---
History of Present Illness Consult date: 09/24/18 Requesting physician: Kumar Fagan Consult reason: chest pain Chief complaint: chest pain Additional Medical History:: 1. Tobacco use, stopped early 2017 2. CAD A. 2011 cardiac cath, "clean" per patient B. JEMMA to LAD and RCA, 05/2017 C. GXT myoview, 08/2017, No ischemia with normal LVEF D. [facility], 01/2018, ANGIOGRAPHIC RESULTS: 1. The left main artery normal 2. The left anterior descending artery has a stent in the proximal segment which is widely patent free of in-stent restenosis with excellent distal and proximal transitioning. The rest of the vessel is normal. 3. The circumflex artery nondominant has proximal eccentric 30% nonflow limiting stenosis 4. The right coronary artery is a large dominant vessel and has a stent in the proximal segment which is widely patent free of in-stent restenosis with excellent proximal distal transitioning. Distally the vessel has 10-20% tapering which extends into the posterior descending artery. The PDA is a large vessel and has a 30% stenosis in its ostial proximal segment 5. The CALLEJAS ventriculogram reveals normal 65% 6. The left ventricular end-diastolic pressure 15 mmHg IMPRESSION: 1. Widely patent stents as described above with widely patent coronary arteries 2. Normal ejection fraction 3. Mildly elevated LVEDP PLAN: 1. Continue medical management 2. Recommend adding Ranexa 1000 twice a day 3. Continue risk factor modification 3. Strong FH of CAD in parents in their 40's 4. Anxiety History of present illness: 58-year-old white male with known coronary artery disease presented with 3-day history of left-sided chest pain with radiation into the jaw and discomfort into the left arm with associated numbness of the left hand. Patient is usually very active but he relates over the last 3 days has been having increased fatigue along with shortness of breath. He denies any cough, fever, chills, nausea, vomiting or diarrhea. Symptoms slightly improved with rest but worse with activity. Nitroglycerin paste was placed in the hospital with some improvement in symptoms but not resolution. Patient's troponins have returned normal x4 and EKG is sinus rhythm with no acute ST segment changes. Patient is very active usually and is extremely anxious about the symptoms indicating that he has recurrent coronary disease. He does smoke about a half a pack per day and is not a diabetic. [facility] History Medical History: Reports:: Anxiety, Chronic Obstructive Pulmonary Disease (COPD), Coronary Artery Disease, Depression, Gastroesophageal Reflux Disease(GERD), Hyperlipidemia, Hypertension Denies:: Cancer, Diabetes Mellitus Type 1, Diabetes Mellitus Type 2, Internal Pacemaker, MRSA, Seizures *Have you ever received a pneumonia vaccine?: No *Have you received a flu vaccine this season?: No Laterality Cases: Right: Other Other Surgeries: Yes: No Previous Surgery, Angiogram, Cardiac Catheterization (2x with 2 stents), Coronary Stent, Other. No: Pacemaker Amputation: No Fractures: Yes (R tib/fib fx repair) - *Social History Educational Level: Attended High School Smoking Status: Current every day smoker Tobacco Type: cigarettes # Packs/Day (cigarettes): 1 Alcohol Intake: never Alcohol Intake Frequency:: other Substance Use Type: denies use *Occupational Status:: employed Housing: house Household Members: family *Travel in the last 8 weeks: None - Psychiatric History Expresses thoughts of harming self/others: None Suicide Plan Description: No Plan Pschychiatric History:: Reports:: Anxiety, Depression Family Hx:: Coronary Artery Disease, Heart Attack, Hyperlipidemia, Hypertension Meds Home Medications Medication Instructions Recorded Confirmed Type aspirin 81 mg chewable tablet 162 mg PO DAILY tab 09/26/17 09/23/18 History prasugrel 10 mg tablet 10 mg PO DAILY #30 tab 05/08/18 09/23/18 Rx ALPRAZolam [Xanax 0.5mg tab] 0.5 mg PO TID 09/23/18 09/23/18 History Dicyclomine HCl [Bentyl 10mg 10 mg PO TID 09/23/18 09/23/18 History capsule] Allergies Allergy/AdvReac Type Severity Reaction Status Date / Time Penicillins [PENICILLINS] Allergy Mild Verified 08/31/18 23:31 atorvastatin [From Lipitor] Allergy Verified 08/31/18 23:31 nitroglycerin AdvReac Verified 08/31/18 23:31 ticagrelor [From Brilinta] AdvReac Verified 08/31/18 23:31 Review of Systems - *Cardiovascular Reports chest pain, Denies shortness of breath with activity - *Respiratory Denies cough, Denies shortness of breath with activity - *Gastrointestinal Denies abdominal pain, Denies nausea, Denies vomiting - *Genitourinary Denies blood in urine - *Musculoskeletal Denies joint pain, Denies back pain - *Neurologic Denies localized weakness Exam Vital signs and Labs for Last 24 Hours: Temp Pulse Resp BP Pulse Ox 98.2 F 42 L 20 113/64 97 09/24/18 04:00 09/24/18 04:00 09/24/18 04:00 09/24/18 04:00 09/24/18 04:00 Laboratory Results - last 24 hr 09/23/18 19:00: WBC 8.6, RBC 4.76, Hgb 15.1, Hct 45.4, MCV 95.3 H, MCH 31.6 H, MCHC 33.2, RDW 13.1, Plt Count 268, MPV 6.8 L, Neut % (Auto) 55.0, Lymph % (Auto) 31.7, [place] % (Auto) 5.8, Eos % (Auto) 5.2, Baso % (Auto) 0.8, Neut # (Auto) 4.8, Lymph # (Auto) 2.7, [place] # (Auto) 0.5, Eos # (Auto) 0.5 H, Baso # (Auto) 0.1 09/23/18 19:00: Sodium 142, Potassium 4.5, Chloride 106, Carbon Dioxide 27, Ani on Gap 13.5, BUN 17, Creatinine 1.19, Estimated Creat Clear 67, Estimated GFR 63, Est GFR ( Amer) 76, Glucose 81, Calcium 9.5, Troponin I < 0.02 09/23/18 20:53: Troponin I < 0.02 09/24/18 00:20: Troponin I < 0.02 09/24/18 03:30: Sodium 143, Potassium 3.8, Chloride 108 H, Carbon Dioxide 27, An ion Gap 11.8, BUN 18, Creatinine 1.17, Estimated Creat Clear 67, Estimated GFR 64, Est GFR ( Amer) 77, Glucose 82, Calcium 8.8, Magnesium 2.1, Troponin I < 0.02, Triglycerides 274 H, Cholesterol 145, LDL Cholesterol 61, VLDL Cholesterol 55 H, HDL Cholesterol 29, Cholesterol/HDL Ratio 5.0 H 09/24/18 03:30: WBC 7.5, RBC 4.57 L, Hgb 14.2, Hct 43.9, MCV 96.0 H, MCH 31.0, MCHC 32.3, RDW 13.2, Plt Count 254, MPV 7.1 L, Neut % (Auto) 49.0, Lymph % (Auto) 36.8, [place] % (Auto) 6.7, Eos % (Auto) 6.7, Baso % (Auto) 0.9, Neut # (Auto) 3.7, Lymph # (Auto) 2.7, [place] # (Auto) 0.5, Eos # (Auto) 0.5 H, Baso # (Auto) 0.1 I & O for Last 24 hours: Intake & Output 09/21/18 09/22/18 09/23/18 09/24/18 11:59 11:59 11:59 11:59 Intake Total 320 / 320 Output Total 400 / 400 Balance -80 / -80 Weight 149 lb 3 oz - *Routine HEENT Exam Head: Present: normocephalic Eye: Present: EOMI, PERRL ENT: Present: mucous membranes moist - *Routine Neck Exam Present: supple. Absent: JVD, carotid bruit - *Routine Respiratory Exam Present: CTA bilaterally. Absent: accessory muscle use, rales, rhonchi, wheezes - *Routine Cardiovascular Exam Present: RRR. Absent: murmur, gallop, rubs - *Routine Abdominal Exam Present: soft. Absent: tenderness, distended, guarding - *Routine Extremities Exam Absent: edema, calf tenderness - *Routine Neurological Exam Present: alert, oriented X3, moving all extremities Assessment and Plan (1) Hyperlipidemia Current visit: Yes Status: Acute Category: Medical Code(s): E78.5 - Hyperlipidemia, unspecified (2) Tobacco use disorder Current visit: Yes Status: Acute Category: Medical Code(s): F17.200 - Nicotine dependence, unspecified, uncomplicated (3) Unstable angina Current visit: Yes Status: Acute Category: Medical Code(s): I20.0 - Unstable angina (4) CAD (coronary artery disease) Current visit: No Status: Chronic Qualifiers: Coronary Disease-Associated Artery/Lesion type: unspecified vessel or lesion type [place] vs. transplanted heart: [place] heart Associated angina: with unspecified angina Qualified Code(s): I25.119 - Atherosclerotic heart disease of [place] coronary artery with unspecified angina pectoris Category: Medical Code(s): I25.10 - Atherosclerotic heart disease of [place] coronary artery without angina pectoris (5) COPD (chronic obstructive pulmonary disease) Current visit: No Status: Chronic Qualifiers: COPD type: unspecified COPD Qualified Code(s): J44.9 - Chronic obstructive pulmonary disease, unspecified Category: Medical Code(s): J44.9 - Chronic obstructive pulmonary disease, unspecified (6) Hypertension Current visit: No Status: Chronic Qualifiers: Hypertension type: essential hypertension Qualified Code(s): I10 - Essential (primary) hypertension Category: Medical Code(s): I10 - Essential (primary) hypertension - Assessment and plan all Dx Assessment and Plan for all problems:: 1. Pt with known CAD (on ASA and Effient) and continued tobacco use with controlled BP on current meds with bradycardia in the 40's and 50's on no beta ani or CCB. Previously on ranexa but unable to afford financially and now with headache on NTG paste. Pt is very anxious and afraid that he is developing recurrent coronary stenosis due to new symptom of jaw pain with chest pain. Will recommend proceeding with cardiac cath later today. 2. Further recommendations to follow.
--- NOTE | 2018-09-24 08:34 | Pharmacy Consult Notes ---
[facility] Pharmacy VTE Monitoring - Patient Demographics Admission date: 09/23/18 Report Date: 09/24/18 Time: 08:34 Allergies/Adverse Reactions: Patient Allergies Penicillins [PENICILLINS] Allergy (Mild, Verified 08/31/18 23:31) atorvastatin [From Lipitor] Allergy (Verified 08/31/18 23:31) nitroglycerin Adverse Reaction (Verified 08/31/18 23:31) ticagrelor [From Brilinta] Adverse Reaction (Verified 08/31/18 23:31) Height: 1.68 m Weight: 67.67 kg Patient Problems: Current Active Problems (Updated 09/24/18 @ 07:57 by BRIDGETT Sesay) Angina at rest (Acute) Hyperlipidemia (Acute) Unstable angina (Acute) Tobacco use disorder (Acute) - VTE Risk Labs: VTE Related Lab Results Hgb 14.2 g/dL (14.1-18.0) 09/24/18 03:30 Hct 43.9 % (42.0-52.0) 09/24/18 03:30 Plt Count 254 K/mm3 (142-424) 09/24/18 03:30 BUN 18 mg/dL (7-18) 09/24/18 03:30 Creatinine 1.17 mg/dL (0.70-1.30) 09/24/18 03:30 Estimated Creat Clear 67 mL/min (50-200) 09/24/18 03:30 Was VTE Risk Assessment Performed: Yes VTE Score: 2 VTE Risk Level: Low Risk Clinical Trial Participant: No - Prophylaxis VTE Prophylaxis Ordered?: Yes Types of VTE Prophylaxis: TEDS Knee High
--- NOTE | 2018-09-24 20:21 | Discharge Summary ---
General - General Admission date:: 09/23/18 Discharge date: 09/24/18 HPI HPI: this wm who has known cad with prev stents with over the last few days has chest pain with rad to jaw which is new - pt has been compliant with meds but has been using tob - pt was admitted with unstable angina for eval and treatment Hospital Course Hospital Course: pt with doing well in hospital - Tobacco use, stopped early 2017 2. CAD A. 2011 cardiac cath, "clean" per patient B. JEMMA to LAD and RCA, 05/2017 C. GXT myoview, 08/2017, No ischemia with normal LVEF D. [facility], 01/2018, ANGIOGRAPHIC RESULTS: 1. The left main artery normal 2. The left anterior descending artery has a stent in the proximal segment which is widely patent free of in-stent restenosis with excellent distal and proximal transitioning. The rest of the vessel is normal. 3. The circumflex artery nondominant has proximal eccentric 30% nonflow limiting stenosis 4. The right coronary artery is a large dominant vessel and has a stent in the proximal segment which is widely patent free of in-stent restenosis with excellent proximal distal transitioning. Distally the vessel has 10-20% tapering which extends into the posterior descending artery. The PDA is a large vessel and has a 30% stenosis in its ostial proximal segment 5. The CALLEJAS ventriculogram reveals normal 65% 6. The left ventricular end-diastolic pressure 15 mmHg IMPRESSION: 1. Widely patent stents as described above with widely patent coronary arteries 2. Normal ejection fraction 3. Mildly elevated LVEDP PLAN: 1. Continue medical management 2. Recommend adding Ranexa 1000 twice a day 3. Continue risk factor modification 3. Strong FH of CAD in parents in their 40's 4. Anxiety History of present illness: 58-year-old white male with known coronary artery disease presented with 3-day history of left-sided chest pain with radiation into the jaw and discomfort into the left arm with associated numbness of the left hand. Patient is usually very active but he relates over the last 3 days has been having increased fatigue along with shortness of breath. He denies any cough, fever, chills, nausea, vomiting or diarrhea. Symptoms slightly improved with rest but worse with activity. Nitroglycerin paste was placed in the hospital with some improvement in symptoms but not resolution. Patient's troponins have returned normal x4 and EKG is sinus rhythm with no acute ST segment changes. Patient is very active usually and is extremely anxious about the symptoms indicating that he has recurrent coronary disease. He does smoke about a half a pack per day and is not a diabetic.GRAPHIC RESULTS: 1. The left main artery normal 2. The left anterior descending artery has a stent in the proximal vessel. Stent is free disease. Normal flow into the distal vessel 3. The circumflex artery smooth 20% proximal stenosis 4. The right coronary artery with stent in the mid vessel. Stent is free of disease 5. The CALLEJAS ventriculogram reveals a ejection fraction normal at 60% 6. The left ventricular end-diastolic pressure 8 IMPRESSION: 1. Mild diffuse coronary artery disease. 2. Patent stent in the proximal left anterior descending 3. Patent stent in the mid large dominant right coronary artery 4. Normal left ventricular systolic function 5. Normal left ventricular end-diastolic pressure PLAN: 1. Continue aggressive medical therapy 2. Continue antiplatelet therapy 3. Evaluate for noncardiac causes of chest pain pt had cath -dendum entered and electronically signed by BRIDGETT Sesay 09/24/18 16:09: Cardiac cath showed patent stents with no significant stenosis. Medical therapy recommended. Will add norvasc 5 mg daily for anti-anginal property and BP control. OK for discharge home with follow up in 2 wks. Objective Vital signs: Temp Pulse Resp BP Pulse Ox 98.1 F 53 L 16 118/69 98 09/24/18 19:05 09/24/18 19:05 09/24/18 19:05 09/24/18 19:05 09/24/18 19:05 no acute distress, thin - *Routine HEENT Exam Head: Present: normocephalic Eye: Present: EOMI, PERRL ENT: Present: mucous membranes dry - *Routine Neck Exam Present: supple - *Routine Respiratory Exam Present: CTA bilaterally - *Routine Cardiovascular Exam Present: RRR, murmur - *Routine Abdominal Exam Present: soft - *Routine Extremities Exam Present: full ROM - *Routine Skin Exam Present: intact - *Routine Neurological Exam Present: alert, oriented X3, CN II-XII intact - Routine Psychiatric Exam Present: normal affect Results Labs on day of discharge: Labs from last 24 hours 09/24/18 09/24/18 09/24/18 03:30 03:30 00:20 WBC 7.5 RBC 4.57 L Hgb 14.2 Hct 43.9 MCV 96.0 H MCH 31.0 MCHC 32.3 RDW 13.2 Plt Count 254 MPV 7.1 L Neut % (Auto) 49.0 Lymph % (Auto) 36.8 Mills % (Auto) 6.7 Eos % (Auto) 6.7 Baso % (Auto) 0.9 Neut # (Auto) 3.7 Lymph # (Auto) 2.7 Mills # (Auto) 0.5 Eos # (Auto) 0.5 H Baso # (Auto) 0.1 Sodium 143 Potassium 3.8 Chloride 108 H Carbon Dioxide 27 Anion Gap 11.8 BUN 18 Creatinine 1.17 Estimated Creat Clear 67 Estimated GFR 64 Est GFR ( Amer) 77 Glucose 82 Calcium 8.8 Magnesium 2.1 Troponin I < 0.02 < 0.02 Triglycerides 274 H Cholesterol 145 LDL Cholesterol 61 VLDL Cholesterol 55 H HDL Cholesterol 29 Cholesterol/HDL Ratio 5.0 H 09/23/18 20:53 WBC RBC Hgb Hct MCV MCH MCHC RDW Plt Count MPV Neut % (Auto) Lymph % (Auto) Mills % (Auto) Eos % (Auto) Baso % (Auto) Neut # (Auto) Lymph # (Auto) Mills # (Auto) Eos # (Auto) Baso # (Auto) Sodium Potassium Chloride Carbon Dioxide Anion Gap BUN Creatinine Estimated Creat Clear Estimated GFR Est GFR ( Amer) Glucose Calcium Magnesium Troponin I < 0.02 Triglycerides Cholesterol LDL Cholesterol VLDL Cholesterol HDL Cholesterol Cholesterol/HDL Ratio DS: Diagnosis - Discharge Diagnosis (1) Hyperlipidemia Status: Acute (2) Tobacco use disorder Status: Acute (3) Unstable angina Status: Acute (4) CAD (coronary artery disease) Status: Chronic (5) COPD (chronic obstructive pulmonary disease) Status: Chronic (6) Hypertension Status: Chronic Discharge Plan - Patient Discharge Instructions ACTIVITY: Continue current activity DIET: continue same diet - Follow up Plan Follow up with: Jad Montanez MD [Staff Physician] - 10/01/18 2:00 pm Disposition: Home, [facility] Medications: Home Medications Medication Instructions Recorded Confirmed Type aspirin 81 mg chewable tablet 162 mg PO DAILY tab 09/26/17 09/23/18 History prasugrel 10 mg tablet 10 mg PO DAILY #30 tab 05/08/18 09/23/18 Rx ALPRAZolam [Xanax 0.5mg tab] 0.5 mg PO TID 09/23/18 09/23/18 History Dicyclomine HCl [Bentyl 10mg 10 mg PO TID 09/23/18 09/23/18 History capsule] Amlodipine Besylate [Norvasc 5mg 5 mg PO DAILY #90 tab 09/24/18 Rx tablet] Prescriptions/Medication Reconciliation: New Amlodipine Besylate [Norvasc 5mg tablet] 5 mg PO DAILY #90 tab Continued aspirin 81 mg chewable tablet 162 mg PO DAILY tab prasugrel 10 mg tablet 10 mg PO DAILY #30 tab ALPRAZolam [Xanax 0.5mg tab] 0.5 mg PO TID Dicyclomine HCl [Bentyl 10mg capsule] 10 mg PO TID
--- NOTE | 2018-09-24 20:54 | Cardiology Report ---
PROCEDURE: 2-D M-mode and color Doppler study INDICATIONS FOR THE TEST: Chest pain COPD+ Heart Murmur Tobacco Smoking+ Palpitations Fatigue Syncope Edema Hypertension+Diabetes Mellitus Rheumatic Fever SOB BACA Obesity Hyperlipidemia+ Family History HD+ Additional History STENTS,CAD, GERD PATIENT INFORMATION HEIGHT: 67 WEIGHT:154 GENDER: Male B/P:138/71 2-D/M-MODE INTERPRETATION: 2-D MEASUREMENTS OBSERVED VALUES IN CMS Right Ventricular Dimension (RVDd) 2.8 Interventricular Septum (Thickness)(IVsd) 1.3 Left Ventricular Internal Dimensions(LVIDd) 5.0 Left Ventricular Posterior Wall (Thickness)(LVPWd) 0.9 Aortic Root 3.2 Aortic Cusp Separation 2.0 Left Atrial Dimensions (LAD) 3.5 2D 1. Left atrium is mildly enlarged, left ventricle is normal size, there is mild concentric left ventricular hypertrophy, visually estimated ejection fraction of 55% with no regional wall motion abnormality. 2. The right atrium is mildly enlarged, right ventricle is mildly dilated with normal contractility. 3. The aortic valve is minimally thickened and fibrosed. 4. The mitral and tricuspid valvular grossly normal. 5. The pulmonic valve is poorly visualized. 6. No significant pericardial effusion noted. DOPPLER INTERROGATION: Doppler interrogation of the aortic, mitral and tricuspid valvular presence of mild mitral and tricuspid regurgitation, tricuspid regurgitation jet velocity is inadequate for calculation of the right ventricular systolic pressure, grade 1 diastolic dysfunction seen without tissue Doppler evidence of raised left atrial pressure. CONCLUSION: 1. Mild biatrial enlargement, normal left ventricular size, mild concentric left ventricular hypertrophy, visually estimated ejection fraction 55% with no regional wall motion abnormality, grade 1 diastolic dysfunction seen without tissue Doppler evidence of raised left atrial pressure. 2. Mildly enlarged right ventricle with normal contractility. 3. No significant pericardial effusion noted.
[2018-09-24 23:01] VITALS: BP 123/64
== END 2018-09-24 21:35 | disposition home or self-care (01) ==
LOC: ER 18:49 → 2ND 18:49
PROVIDERS: ADMIT Emergency Medicine; ATTEND Emergency Medicine
DX: Z95.818 Presence of other cardiac implants and grafts; Z82.49 Family history of ischemic heart disease and other diseases of the circulatory system; J44.9 Chronic obstructive pulmonary disease, unspecified; Z79.82 Long term (current) use of aspirin; Z72.0 Tobacco use; I25.110 Atherosclerotic heart disease of native coronary artery with unstable angina pectoris; I10 Essential (primary) hypertension; Z79.899 Other long term (current) drug therapy; E78.5 Hyperlipidemia, unspecified
CPT/HCPCS: 36415; 71020; 71046; 80048; 80061; 83735; 84484; 85025; 93005; 93306; 93458; 99152; 99284; C1725; C1769; G0378; J1644; Q9967

== ENCOUNTER → 2018-12-24 13:24 | Outpatient (CLI) | payer MEDICAID, SELFPAY ==
--- NOTE | 2018-12-24 13:27 | XR_ITS ---
PROCEDURE: XR CHEST 2V CLINICAL HISTORY: cough, sputum Cough, sputum, tobacco use COMPARISON: CXR2V XR chest 2V from 04/11/2018 CXR2V XR chest 2V from 04/30/2018 Chest from 09/23/2018 XR CHEST 2V from 10/16/2018 FINDINGS: The cardiomediastinal silhouette and pulmonary vascularity are within normal limits. COPD. No lobar consolidation or collapse. Coronary artery stent and or calcification noted. No acute bony abnormalities. IMPRESSION: COPD. No change with no acute finding Dictated by: Jevon Stapleton MD 12/24/2018 14:32 Electronically signed by Jevon Stapleton MD in [place] 12/24/2018 14:32
== END ==
PROVIDERS: PCP Emergency Medicine; Visit Provider Physician Assistant
DX: R05 Cough (principal)
CPT/HCPCS: 71046

== ENCOUNTER → 2019-01-04 13:36 | Outpatient (CLI) | payer OTHER, SELFPAY ==
[2019-01-04 15:20] LABS: Cannabinoid Screen,Urine Negative ng/mL (<50)
[2019-01-04 15:36] LABS: Amphetamine/Metha Screen,Urine Negative ng/mL (<1000); Barbiturates Screen,Urine Negative ng/mL (<200); Benzodiazepines Screen,Urine Negative ng/mL (<200); Cocaine Screen,Urine Negative ng/mL (<300); Methadone Screen,Urine Negative ng/mL (<300); Opiate Screen,Urine Negative ng/mL (<300); Phencyclidine Screen,Urine Negative ng/mL (<25)
== END ==
PROVIDERS: Visit Provider Nurse Practitioner Family
DX: Z79.899 Other long term (current) drug therapy (principal)
CPT/HCPCS: 80305

== ENCOUNTER → 2019-02-06 18:09 | Outpatient (CLI) | payer OTHER, SELFPAY | PROVIDERS: Visit Provider Nurse Practitioner Family | DX: K04.7 Periapical abscess without sinus (principal); N49.2 Inflammatory disorders of scrotum | CPT/HCPCS: 87070; 87186; 87205 ==

== ENCOUNTER → 2019-03-25 11:32 | Outpatient (CLI) | payer OTHER, SELFPAY ==
[2019-03-25 12:00] LABS: Basophils # 0.1 K/mm3 (0-0.2); Basophils % 0.6 % (0.1-2.0); Eosinophils # 0.6 K/mm3 (0.0-0.4); Eosinophils % 5.4 % (0.1-12.0); Hematocrit 43.5 % (42.0-52.0); Lymphocytes # 1.7 K/mm3 (0.7-4.5); Lymphocytes % 16.4 % (10-50); Mean Corpuscular HGB Conc 32.1 g/dL (31.8-35.4); Mean Corpuscular Hemoglobin 32.6 pg (27.0-31.2); Mean Corpuscular Volume 101.7 fl (80-94); Mean Platelet Volume 7.2 fl (7.4-10.4); Monocytes # 0.5 K/mm3 (0.1-1.0); Neutrophils # 7.6 K/mm3 (1.8-7.8); Neutrophils % 72.5 % (37.0-80.0); Platelet Count 304 K/mm3 (142-424); Red Blood Count 4.28 M/mm3 (4.60-6.20); Red Cell Distribution Width 12.7 % (11.5-17.5); White Blood Count 10.4 K/mm3 (4.8-10.8)
[2019-03-25 19:05] LABS: Alanine Aminotransferase 18 U/L (12-78); Albumin Level 3.4 gm/dL (3.4-5.0); Albumin/Globulin Ratio 1.1 (1.1-1.8); Alkaline Phosphatase 105 U/L (46-116); Anion Gap 11.5 mEq/L (5-15); Aspartate Amino Transferase 13 U/L (15-37); Bilirubin,Total 0.4 mg/dL (0.2-1.0); Blood Urea Nitrogen 17 mg/dL (7-18); Calcium 8.9 mg/dL (8.5-10.1); Carbon Dioxide 26 mmol/L (21.0-32.0); Chloride 106 mmol/L (98-107); Creatinine,Serum 1.18 mg/dL (0.70-1.30); Estimated Glomerular Filt Rate 63 ml/min (>60); GFR (African American) 77 ML/MIN (>60); Glucose 98 mg/dL (74-106); Potassium 4.5 mmoL/L (3.5-5.1); Sodium 139 mmol/L (136-145); Total Protein,Serum 6.4 gm/dL (6.4-8.2)
== END ==
PROVIDERS: Visit Provider Nurse Practitioner Family
DX: L02.32 Furuncle of buttock (principal)
CPT/HCPCS: 36415; 80053; 85025; 87040

== ENCOUNTER → 2019-04-01 13:56 | Outpatient (CLI) | payer OTHER, SELFPAY ==
[2019-04-01 20:39] LABS: Amphetamine/Metha Screen,Urine Negative ng/mL (<1000); Barbiturates Screen,Urine Negative ng/mL (<200); Benzodiazepines Screen,Urine Positive ng/mL (<200); Cannabinoid Screen,Urine Negative ng/mL (<50); Cocaine Screen,Urine Negative ng/mL (<300); Methadone Screen,Urine Negative ng/mL (<300); Opiate Screen,Urine Negative ng/mL (<300); Phencyclidine Screen,Urine Negative ng/mL (<25)
== END ==
PROVIDERS: Visit Provider Emergency Medicine
DX: Z79.899 Other long term (current) drug therapy (principal)
CPT/HCPCS: 80305

== ENCOUNTER → 2019-09-02 10:23 | Outpatient (CLI) | payer OTHER, SELFPAY ==
[2019-09-04 04:39] LABS: Covid-19 Nasal PCR Sendout Lex NOT DETECTED
== END ==
PROVIDERS: PCP Emergency Medicine; Visit Provider Emergency Medicine
DX: Z03.818 Encounter for observation for suspected exposure to other biological agents ruled out (principal)
CPT/HCPCS: U0004

== ENCOUNTER 2019-10-02 22:50 | Emergency (ER) | payer OTHER, SELFPAY ==
--- NOTE | 2019-10-02 22:44 | ECG_ITS ---
APPROVED REPORT Exam: Resting ECG HR:64 bpm ECG Measurements Heart Rate 64 AXES CA 154 P 66 QRSd 90 QRS 58 QT 416 T 54 QTc 429 <Conclusion> Normal sinus rhythm Incomplete RBBB Otherwise a Normal ECG Electronically signed by : Temo Martinez, 10/04/2019 12:29:09
[2019-10-02 22:55] VITALS: BP 134/78; PULSE 62; RESP 16; TEMP 36.9; O2SAT 98; BMI 23.1
--- NOTE | 2019-10-02 23:02 | CT_ITS ---
PROCEDURE: CT CERVICAL SPINE WO CON CLINICAL INDICATION: head and neck numbness COMPARISON: No exams were available for comparison TECHNIQUE: Axial images obtained with sagittal and coronal reformats. All CT scans at the facility use one or more dose reduction, viz: automated exposure control, ma/kV adjustment per patient size (including targeted exams where dose is matched to indication, i.e. head), or iterative reconstruction technique. Axial spiral CT scanning performed of the cervical spine beginning at the base of the skull and continuing to the upper T-spine. 3-D multiplanar reconstruction with 3-D manipulation of volumetric data set in image rendering was completed by the radiologist and/or technologist with the supervision of the radiologist on independent workstation. FINDINGS: No fracture nor subluxation is evident. There is straightening of normal cervical lordosis. Normal prevertebral soft tissues. Facets, neural foramen and vertebral bodies intact and unremarkable. Normal C1/C2 relationships. Degenerative disc/endplate changes with anterior bridging osteophyte are seen at C5-C6. Apices of lungs are clear with no acute findings. IMPRESSION: Cervical spine intact with no fracture nor subluxation. Straightening of normal cervical lordosis, could be positional or due to muscle spasm. Dictated by: Bárbara Lomax 10/03/2019 14:04 Electronically signed by Bárbara Lomax in [place] 10/03/2019 14:04
--- NOTE | 2019-10-02 23:02 | CT_ITS ---
PROCEDURE: CT HEAD/BRAIN WO CON CLINICAL INDICATION: head and neck numbness COMPARISON: CT HEAD/BRAIN WO CON from 12/22/2018 TECHNIQUE: Axial images obtained. All CT scans at the facility use one or more dose reduction, viz: automated exposure control, ma/kV adjustment per patient size (including targeted exams where dose is matched to indication, i.e. head), or iterative reconstruction technique. FINDINGS: No midline shift, mass effect, intracranial hemorrhage, hydrocephalus, or extra-axial fluid collection is evident. The basal cisterns are preserved. The calvarium has an unremarkable appearance. No mastoid effusion. No sinus air-fluid level. IMPRESSION: No acute intracranial abnormality noted. Dictated by: Bárbara Lomax 10/03/2019 13:46 Electronically signed by Bárbara Lomax in [facility] 10/03/2019 13:46
--- NOTE | 2019-10-02 23:02 | XR_ITS ---
PROCEDURE: XR CHEST 2V CLINICAL HISTORY: arm numbness Heart disease, arm and neck numbness COMPARISON: 12/24/2018 FINDINGS: The cardiomediastinal silhouette and pulmonary vascularity are within normal limits. The lungs are clear without infiltrates, suspicious nodules, or pleural effusions. No acute bony abnormalities. IMPRESSION: No acute findings. Dictated by: Jevon Stapleton MD 10/03/2019 07:17 Electronically signed by Jevon Stapleton MD in [place] 10/03/2019 07:17
[2019-10-02 23:09] LABS: Basophils # 0.1 K/mm3 (0-0.2); Basophils % 0.7 % (0.1-2.0); Eosinophils # 0.5 K/mm3 (0.0-0.4); Eosinophils % 5.1 % (0.1-12.0); Hematocrit 39.9 % (42.0-52.0); Hemoglobin 14.2 g/dL (14.1-18.0); Mean Corpuscular HGB Conc 35.7 g/dL (31.8-35.4); Mean Corpuscular Hemoglobin 34.9 pg (27.0-31.2); Mean Platelet Volume 7.4 fl (7.4-10.4); Monocytes # 0.4 K/mm3 (0.1-1.0); Monocytes % 4.7 % (1.7-9.3); Neutrophils # 5.2 K/mm3 (1.8-7.8); Neutrophils % 56.5 % (37.0-80.0); Platelet Count 254 K/mm3 (142-424); Red Blood Count 4.07 M/mm3 (4.60-6.20); Red Cell Distribution Width 13.6 % (11.5-17.5); White Blood Count 9.1 K/mm3 (4.8-10.8)
[2019-10-02 23:11] LABS: Chloride 106 mmol/L (98-107); Potassium 3.8 mmoL/L (3.5-5.1); Sodium 140 mmol/L (136-145)
[2019-10-02 23:14] LABS: Anion Gap 11.8 mEq/L (5-15); Blood Urea Nitrogen 14 mg/dl (9-20); Calcium 9.5 mg/dl (8.4-10.2); Carbon Dioxide 26 mmol/L (22.0-30.0); Creatinine Clearance Estimated 76 mL/min (50-200); Estimated Glomerular Filt Rate 76 ml/min (>60); GFR (African American) 93 ML/MIN (>60); Glucose 96 mg/dl (74-100)
[2019-10-02 23:29] LABS: Troponin I < 0.01 ng/ml (0.00-0.034)
--- NOTE | 2019-10-03 | [facility].EDGENADL ---
ED Disposition Clinical Impression: Cervical strain Disposition: Home, Self-Care Condition on Discharge: Good Instructions: DI for Cervical Muscle Strain Prescriptions: Nabumetone 750 mg PO BID 10 Days #20 tab Transmission Status: Pending to [facility] Tizanidine HCl [Zanaflex 4mg tablet] 4 mg PO TID 10 Days #30 tab Transmission Status: Pending to [facility] Referrals: Kumar Fagan MD [Primary Care Provider] - - Critical Care Critical Care Time: No Attestation: On 10/02/19, the high probability of a clinically significant, sudden or life threatening deterioration of the following system(s) required my full and direct attention, intervention and personal management. The time I documented below is in addition to time spent performing reported procedures but includes the following listed in this critical care notation. Medical Decision Making - Medical Records Medical records reviewed: Yes: I reviewed the patient's medical records. - Anjel Inquiry Pt receiving controlled substance: No Vital Signs: 10/02/19 22:55 Temperature 98.5 F Temperature Source Oral Pulse Rate [Left] 62 Respiratory Rate 16 Blood Pressure [Right Arm] 134/78 Blood Pressure Mean [Right Arm] 96 Blood Pressure Source [Right Arm] Automatic Cuff Blood Pressure Position [Right Arm] Supine 02 Sat by Pulse Oximetry 98 Oxygen Delivery Method Room Air - Lab Data Lab results reviewed: Yes: I reviewed the patient's lab results. Lab Results 10/02/19 22:50: WBC 9.1, RBC 4.07 L, Hgb 14.2, Hct 39.9 L, MCV 98.0 H, MCH 34.9 H, MCHC 35.7 H, RDW 13.6, Plt Count 254, MPV 7.4, Neut % (Auto) 56.5, Lymph % (Auto) 33.0, [place] % (Auto) 4.7, Eos % (Auto) 5.1, Baso % (Auto) 0.7, Neut # (Auto) 5.2, Lymph # (Auto) 3.0, [place] # (Auto) 0.4, Eos # (Auto) 0.5 H, Baso # (Auto) 0.1 10/02/19 22:50: Sodium 140, Potassium 3.8, Chloride 106, Carbon Dioxide 26, Anion Gap 11.8, BUN 14, Creatinine 1.00, Estimated Creat Clear 76, Estimated GFR 76, Est GFR ( Amer) 93, Glucose 96, Calcium 9.5, Troponin I < 0.01 Result diagrams: 10/02/19 22:50 10/02/19 22:50 Orders (Tests/Meds): ED MEDICATIONS Generic Name Dose Route Start Last Admin Trade Name Ulisses PRN Reason Stop Dose Admin Sodium Chloride 1,000 mls @ 999 mls/hr 10/02/19 23:15 10/02/19 23:06 Sod Chlor 0.9% 1000ml Bag IV 10/03/19 00:15 999 mls/hr .Q1H1M CORRIE Administration ORDERS Category Date Time Status CT cervical spine wo con Stat Cat Scan 10/02/19 23:[address] head/brain wo con Stat Cat Scan 10/02/19 23:02 Taken XR chest 2V Stat Exams 10/02/19 23:02 Taken Troponin I Q3H Lab 10/03/19 02:15 Ordered Troponin I Q3H Lab 10/03/19 05:15 Ordered - CT Data CT Scan: Head, C-Spine Time Received: 00:03 Preliminary Findings: Normal/NAD - ECG Data Tracing #1 I reviewed this ECG and interpreted as documented below: Normal Sinus Rhythm: Yes General Adult HPI - General Chief complaint: Headache Stated complaint: left head and neck numbness Time Seen by Provider: 10/03/19 00:00 Mode of Arrival: Ambulatory Source of Information: Patient Limitations: No Limitations Description of Symptoms (Recalled from ER Triage Doc. 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 Patient denies any pain. Patient denies any neurological deficits. Patient denies any shortness of breath or cough. Patient also denies any loss of taste or smell. Patient also denies any nausea vomiting diarrhea. Patient also denies any arthralgias o
[2019-10-03 00:11] VITALS: BP 150/89; PULSE 51; RESP 16; TEMP 36.9; O2SAT 97
== END 2019-10-03 00:15 | disposition home or self-care (01) ==
PROVIDERS: Emergency Provider Family Medicine; PCP Emergency Medicine
DX: S16.1XXA Strain of muscle, fascia and tendon at neck level, initial encounter (principal); X50.1XXA Overexertion from prolonged static or awkward postures, initial encounter; I10 Essential (primary) hypertension; K21.9 Gastro-esophageal reflux disease without esophagitis; F41.8 Other specified anxiety disorders; J44.9 Chronic obstructive pulmonary disease, unspecified; F17.210 Nicotine dependence, cigarettes, uncomplicated; Z88.0 Allergy status to penicillin; Z88.8 Allergy status to other drugs, medicaments and biological substances; Z79.899 Other long term (current) drug therapy
CPT/HCPCS: 70450; 71046; 72125; 80048; 84484; 85025; 93005; 96365; 99283

== ENCOUNTER 2019-10-27 21:53 | Emergency (ER) | payer OTHER, SELFPAY ==
[2019-10-27 21:54] VITALS: BP 128/75; PULSE 63; RESP 16; TEMP 36.6; O2SAT 100; BMI 23.1
--- NOTE | 2019-10-27 22:00 | ECG_ITS ---
APPROVED REPORT Exam: Resting ECG HR:63 bpm ECG Measurements Heart Rate 63 AXES WY 152 P 57 QRSd 90 QRS 61 QT 408 T 56 QTc 417 <Conclusion> Normal sinus rhythm Normal ECG Electronically signed by : Brody Andrade, 10/28/2019 06:13:26
--- NOTE | 2019-10-27 22:00 | XR_ITS ---
PROCEDURE: XR CHEST 2V CLINICAL HISTORY: chest pain Bilateral chest pain, smoker COMPARISON: CT AGCHEST CT angio chest from 06/28/2017 CR XR CHEST 2V from 10/16/2018 DX XR CHEST 2V from 12/24/2018 CR XR CHEST 2V from 10/02/2019 FINDINGS: The cardiomediastinal silhouette and pulmonary vascularity are within normal limits. Changes of COPD. No lobar consolidation or collapse Coronary artery stent is present. No acute bony findings. IMPRESSION: No acute findings. Dictated by: Jevon Stapleton MD 10/28/2019 05:28 Jevon Stapleton MD in [place] 10/28/2019 05:28
[2019-10-27 22:15] LABS: Basophils # 0.1 K/mm3 (0-0.2); Basophils % 0.7 % (0.1-2.0); Eosinophils # 0.4 K/mm3 (0.0-0.4); Eosinophils % 4.8 % (0.1-12.0); Hematocrit 41.3 % (42.0-52.0); Hemoglobin 14.2 g/dL (14.1-18.0); Lymphocytes # 2.6 K/mm3 (0.7-4.5); Lymphocytes % 31.5 % (10-50); Mean Corpuscular HGB Conc 34.3 g/dL (31.8-35.4); Mean Corpuscular Hemoglobin 33.8 pg (27.0-31.2); Mean Corpuscular Volume 98.5 fl (80-94); Mean Platelet Volume 7.7 fl (7.4-10.4); Monocytes # 0.3 K/mm3 (0.1-1.0); Neutrophils # 4.8 K/mm3 (1.8-7.8); Platelet Count 239 K/mm3 (142-424); Red Blood Count 4.19 M/mm3 (4.60-6.20); Red Cell Distribution Width 13.4 % (11.5-17.5); White Blood Count 8.1 K/mm3 (4.8-10.8)
[2019-10-27 22:16] LABS: Chloride 109 mmol/L (98-107); Potassium 3.9 mmoL/L (3.5-5.1); Sodium 143 mmol/L (136-145)
[2019-10-27 22:19] LABS: Anion Gap 10.9 mEq/L (5-15); Blood Urea Nitrogen 18 mg/dl (9-20); Carbon Dioxide 27 mmol/L (22.0-30.0); Creatinine Clearance Estimated 58 mL/min (50-200); Estimated Glomerular Filt Rate 57 ml/min (>60); GFR (African American) 68 ML/MIN (>60)
[2019-10-27 22:20] LABS: Calcium 9.7 mg/dl (8.4-10.2); Glucose 119 mg/dl (74-100)
--- NOTE | 2019-10-27 22:21 | [facility].EDCP ---
ED Disposition Clinical Impression: Chest pain Qualifiers: Chest pain type: precordial pain Qualified Code(s): R07.2 - Precordial pain Disposition: Home, Self-Care Condition on Discharge: Good Instructions: DI for Atypical Chest Pain Additional Instructions: see dr pascal in am Referrals: Kumar Fagan MD [Primary Care Provider] - - Critical Care Critical Care Time: No Attestation: On 10/27/19, the high probability of a clinically significant, sudden or life threatening deterioration of the following system(s) required my full and direct attention, intervention and personal management. The time I documented below is in addition to time spent performing reported procedures but includes the following listed in this critical care notation. Medical Decision Making - Medical Records Medical records reviewed: Yes: I reviewed the patient's medical records. - Anjel Inquiry Pt receiving controlled substance: No Vital Signs: 10/27/19 21:54 10/27/19 22:41 Temperature 97.8 F Temperature Source Oral Pulse Rate [Right Brachial] 63 55 L Respiratory Rate 16 17 Blood Pressure [Right Arm] 128/75 117/68 Blood Pressure Mean [Right Arm] 92 84 Blood Pressure Source [Right Arm] Automatic Cuff Automatic Cuff Blood Pressure Position [Right Arm] Sitting Sitting 02 Sat by Pulse Oximetry 100 98 Oxygen Delivery Method Room Air Room Air - Lab Data Lab results reviewed: Yes: I reviewed the patient's lab results. Lab Results 10/27/19 22:00: WBC 8.1, RBC 4.19 L, Hgb 14.2, Hct 41.3 L, MCV 98.5 H, MCH 33.8 H, MCHC 34.3, RDW 13.4, Plt Count 239, MPV 7.7, Neut % (Auto) 59.0, Lymph % (Auto) 31.5, Hayes % (Auto) 4.0, Eos % (Auto) 4.8, Baso % (Auto) 0.7, Neut # (Auto) 4.8, Lymph # (Auto) 2.6, Hayes # (Auto) 0.3, Eos # (Auto) 0.4, Baso # (Auto) 0.1 10/27/19 22:00: Sodium 143, Potassium 3.9, Chloride 109 H, Carbon Dioxide 27, Anion Gap 10.9, BUN 18, Creatinine 1.30 H, Estimated Creat Clear 58, Estimated GFR 57 L, Est GFR ( Amer) 68, Glucose 119 H, Calcium 9.7, Troponin I < 0.01 Result diagrams: 10/27/19 22:00 10/27/19 22:00 Orders (Tests/Meds): ED MEDICATIONS Generic Name Dose Route Start Last Admin Trade Name Freq PRN Reason Stop Dose Admin Sodium Chloride 1,000 mls @ 999 mls/hr 10/27/19 22:15 10/27/19 22:24 Sod Chlor 0.9% 1000ml Bag IV 10/27/19 23:15 999 mls/hr .Q1H1M CORRIE Administration Discontinued Medications Generic Name Dose Route Start Last Admin Trade Name Freq PRN Reason Stop Dose Admin Aspirin 162 mg 10/27/19 22:11 10/27/19 22:24 Aspirin 81mg Chewable Tablet PO 10/27/19 22:12 162 mg ONCE ONE Administration ORDERS Category Date Time Status XR chest 2V Stat Exams 10/27/19 22:00 Taken Troponin I Q3H Lab 10/28/19 01:00 Ordered Troponin I Q3H Lab 10/28/19 04:00 Ordered - Radiology Data #1 Image(s): Chest Image Reviewed: Yes I reviewed the patient's radiology image Preliminary Findings: Normal/NAD - ECG Data Tracing #1 Normal Sinus Rhythm: Yes Ischemic changes: non-specific ST-T wave changes Chest Pain HPI - General Chief Complaint: Chest Pain Stated Complaint: Chest pain Time Seen by Provider: 10/27/19 22:05 Mode of Arrival: Ambulatory Source of Information: Patient, Medical Record Limitations: No Limitations Description of Symptoms (Recalled from ER Triage Doc. by RN): Patient reports chest pressure x1 week and then the last couple days has started becoming short of breath when he walks or is working. Patient reports he called Dr. Pascal and he was told to come on in. - History of Present Illness HPI narrative: ongoing chest pain with hx of heart dis MD complaint: chest pain indicative of cardiac Onset (ago): day(s) Duration: intermittent Activity at onset: during rest Pain location: left chest Severity: similar to previous episodes Quality: sharp Treatments prior to or on arrival for Cardiac Chest Pain: none - BECKY Score for
[2019-10-27 22:32] LABS: Troponin I < 0.01 ng/ml (0.00-0.034)
[2019-10-27 22:41] VITALS: BP 117/68; PULSE 55; RESP 17; O2SAT 98
[2019-10-27 23:46] VITALS: BP 127/73; PULSE 60; RESP 17; TEMP 36.6; O2SAT 98
== END 2019-10-27 23:48 | disposition home or self-care (01) ==
PROVIDERS: Emergency Provider Emergency Medicine; PCP Emergency Medicine
DX: R07.2 Precordial pain (principal); F41.8 Other specified anxiety disorders; K21.9 Gastro-esophageal reflux disease without esophagitis; J44.9 Chronic obstructive pulmonary disease, unspecified; E78.5 Hyperlipidemia, unspecified; I10 Essential (primary) hypertension; F17.210 Nicotine dependence, cigarettes, uncomplicated; Z88.0 Allergy status to penicillin; Z79.899 Other long term (current) drug therapy
CPT/HCPCS: 71046; 80048; 84484; 85025; 93005; 96365; 99283

== ENCOUNTER → 2019-10-31 10:47 | Outpatient (CLI) | payer OTHER, SELFPAY ==
--- NOTE | 2019-10-31 10:48 | CA_ITS ---
APPROVED REPORT Technologist: Allyn Adamson, Ht: 5 ft 6 in Wt: 149 lbs BSA: 1.76 m2 HR: 50 bpm BP: 140/76 mmHg Rhythm: Sinus bradycardia Medical History Medical History: Hyperlipidemia, Stents Medications: Alprazolam,,,,, Asa,,,,, Prasugrel,,,,, AtrovASTATIN,,,,, Cardiac Risk Factors: Hyperlipidemia, FHX of CAD Stress Test Details Test: Reed HR Resting HR: 68 bpm Max Heart Rate (APMHR): 161 bpm Max HR Achieved: 131 bpm Target HR (85% APMHR): 136 bpm % of APMHR: 81 Recovery HR: 92 bpm BP Resting BP: 140/76 mmHg Max BP: 186/75 mmHg Recovery BP: 186.0/75.0 mmHg ECG Clinical Exercise duration: 12:00 min Highest Stage Achieved: Exercise capacity: 12.8 METs Stress ECG Conclusion Exercised 12:00 on Reed Protocol. No change in pretest, CP with exercise. Occasional PVC. Allowing for motion artifact there is a normal ST response to exercise. The EKG portion of the exercise treadmill Myoview is nondiagnostic as patient did not achieve the target heart rate. Myoview images reported seperately. Test Summary REST . . . . . . . Standing REST . . . . . . . Sitting REST 04:39 0.0 0.0 68 . 140/ 76 . . Stage 1 01:00 10.0 1.7 68 . . . . Stage 1 02:00 10.0 1.7 73 . . . . Stage 1 03:00 10.0 1.7 70 . 148/ 74 . . Stage 2 01:00 12.0 2.5 80 . . . . Stage 2 02:00 12.0 2.5 84 . . . . Stage 2 03:00 12.0 2.5 87 . . . . Stage 3 01:00 14.0 3.4 96 . . . . Stage 3 02:00 14.0 3.4 119 . . . . Stage 3 03:00 14.0 3.4 103 . 178/ 74 . . Stage 4 01:00 16.0 4.2 120 . . . . Stage 4 . . . . . . . Cardiolite injected Stage 4 02:00 16.0 4.2 86 . . . . Stage 4 . . . . . . . Stage held Stage 4 . . . . . . . Stage resumed Stage 4 03:00 16.0 4.2 28 . . . Stop exercise at 12:00 RECOVERY 01:00 0.0 0.0 84 . . . . RECOVERY 02:00 0.0 0.0 62 . 186/ 75 . . RECOVERY 03:00 0.0 0.0 64 . 152/ 72 . . RECOVERY 04:00 0.0 0.0 81 . 147/ 73 . . RECOVERY 05:00 0.0 0.0 61 . 147/ 73 . . RECOVERY 05:23 0.0 0.0 59 . 134/ 69 . . Electronically signed by : Isael Angulo, 10/31/2019 15:25:54
--- NOTE | 2019-10-31 10:48 | CA_ITS ---
APPROVED REPORT EXAM: Comprehensive 2D, Doppler, and color-flow Echocardiogram Trading Manager: Jessica Gomez RVT Ht: 5 ft 6 in Wt: 149lbs BSA: 1.76 BP: 119/64 mmHg Indications: CP,CAD,STENTS,HTN,HLD,SMOKER,SOA,BACA 2D Dimensions LVOT 1.90 cm (M/F) 1.5-2.5 M-Mode Dimensions RVDd 2.88 cm (0.9-2.6) LVDd 4.98 cm (3.5-5.7) LVDs 3.07 cm (3.5-5.7) IVSd 1.07 cm (0.6-1.1) PWd 0.89 cm (0.6-1.1) EF (Teich) 68.40% FS 38.40% EDV (Teich) 117.10 mL ESV (Teich) 37.00 mL LV Diastology E/A Ratio 1.14 Mitral Valve MV A Velocity 56.00 (40-130 cm/s) Left Ventricle Left atrium is normal size, left ventricle is normal size, there is no concentric left ventricular hypertrophy, visually estimated ejection fraction 55% with no regional wall motion abnormality, diastolic parameters are within normal range. Right Ventricle Right atrium and right ventricular normal size and contractility. Aortic Valve Aortic valve is minimally thickened and fibrosed. There is no aortic stenosis or aortic insufficiency. Mitral Valve Mitral valve is grossly normal, there is mild mitral regurgitation. Tricuspid Valve Tricuspid valve grossly normal, there is mild tricuspid regurgitation. Tricuspid regurgitation jet velocity is inadequate for calculation of the right ventricular systolic pressure. Pulmonic Valve Pulmonic valve is poorly visualized. Great Vessels Aortic root is normal size. Pericardium No significant pericardial effusion noted. Conclusion 1. Normal left ventricular size, preserved left ventricular systolic function, visually estimated ejection fraction 55% with no regional wall motion abnormality, diastolic parameters are within normal range. 2. Mild mitral and tricuspid regurgitation. 3. No significant pericardial effusion noted. Electronically signed by : Isael Angulo, 10/31/2019 15:23:07
--- NOTE | 2019-10-31 10:48 | NM_ITS ---
APPROVED REPORT Exam: Nuclear Stress Test Indication: chest pain..short of breath Patient Location: Outpatient Stress Tech: Bridgett Ashleynkson [place] Tech:KAMALJIT Martínez RT(R)(N) Ht: 5 ft 6 in Wt: 150 lbs HR: 50 bpm BP: 140/76 mmHg BSA: 1.77 m2 BMI: 24.2 History: chest pain..short of breath Procedure: Patient exercised on Reed protocol 12 minutes and sec, resting heart rate 50 bpm, resting blood pressure 140/76 mmHg, with exercise maximum heart rate achived was 133 bpm which is 83 % of the maximum predicted heart rate and blood pressure was 186/75 mmHg. Patient has Good exercise capacity, achieved 12.8 METs of workload on treadmill, the blood pressure response to exercise was Adequate. Electrocardiogram Resting electrocardiogram showed sinus rhythm, with exercise there is less than 1.[address] segment depression noted from the baseline EKG. The EKG portion of the exercise Myoview is nondiagnostic as patient did not achieve the target heart rate. Cardiac Stress and Resting SPECT Images: Cardiac Stress and Resting SPECT images were obtained using technetium 99m Myoview 32.1 mCi stress and 10.94 mCi at rest. Gated SPECT for the analysis of segmental wall motion and calculation for the ejection fraction also done. Cardiac stress and resting SPECT images show a mild fixed defect in the inferior wall with normal grecia gated SPECT is likely secondary to soft tissue attenuation, no reversible ischemia seen. Computer derived ejection fraction is 52% with no regional wall motion abnormality, right ventricle is normal size and contractility. Conclusion: 1. The EKG portion of the exercise Myoview is nondiagnostic as patient did not achieve the target heart rate, patient has good exercise capacity achieved 12.8 mets of workload on treadmill, the blood pressure response to exercise was adequate, there was no exercise-induced chest discomfort. 2. No scintigraphic evidence of reversible ischemia seen at this level of exercise, computer derived ejection fraction is 52% with no regional wall motion abnormality, right ventricle is normal size and contractility. Electronically signed by : Isael Angulo, 11/01/2019 13:41:14
--- NOTE | 2019-10-31 13:53 | HMH.ITSHM ---
Current Home Medications as stated by this patient Jerry Huynh or equal opportunity representative. [] lipitoe..asa isosorbide prasugrel alprazolam
== END ==
PROVIDERS: PCP Emergency Medicine; Visit Provider Nurse Practitioner Family
DX: I20.9 Angina pectoris, unspecified (principal); E78.2 Mixed hyperlipidemia; I10 Essential (primary) hypertension
CPT/HCPCS: 78452; 93017; 93306; A9502

== ENCOUNTER → 2020-02-06 14:06 | Outpatient (CLI) | payer OTHER, SELFPAY | PROVIDERS: PCP Emergency Medicine; Visit Provider Internal Medicine Cardiovascular Disease | DX: R00.2 Palpitations (principal) | CPT/HCPCS: 93225; 93226 ==

== ENCOUNTER → 2020-03-26 13:28 | Outpatient (CLI) | payer OTHER, SELFPAY ==
[2020-03-26 14:37] LABS: Basophils # 0.1 K/mm3 (0-0.2); Basophils % 0.8 % (0.1-2.0); Eosinophils # 0.3 K/mm3 (0.0-0.4); Eosinophils % 3.2 % (0.1-12.0); Hematocrit 47.8 % (42.0-52.0); Lymphocytes % 18.9 % (10-50); Mean Corpuscular HGB Conc 33.6 g/dL (31.8-35.4); Mean Corpuscular Hemoglobin 33.9 pg (27.0-31.2); Mean Corpuscular Volume 101.1 fl (80-94); Mean Platelet Volume 7.2 fl (7.4-10.4); Monocytes # 0.3 K/mm3 (0.1-1.0); Neutrophils # 7.8 K/mm3 (1.8-7.8); Neutrophils % 74.1 % (37.0-80.0); Platelet Count 286 K/mm3 (142-424); Red Blood Count 4.73 M/mm3 (4.60-6.20); Red Cell Distribution Width 13.5 % (11.5-17.5); White Blood Count 10.5 K/mm3 (4.8-10.8)
[2020-03-26 14:49] LABS: Chloride 107 mmol/L (98-107); Potassium 5.1 mmoL/L (3.5-5.1); Sodium 142 mmol/L (136-145)
[2020-03-26 14:52] LABS: Anion Gap 12.1 mEq/L (5-15); Blood Urea Nitrogen 21 mg/dl (9-20); Carbon Dioxide 28 mmol/L (22.0-30.0); Estimated Glomerular Filt Rate 69 ml/min (>60); GFR (African American) 83 ML/MIN (>60)
[2020-03-26 14:53] LABS: Calcium 10.3 mg/dl (8.4-10.2); Glucose 120 mg/dl (74-100)
[2020-03-26 15:14] LABS: Coronavirus 19 IgG Antibody Negative (Negative); Coronavirus 19 IgM Antibody Negative (Negative)
== END ==
PROVIDERS: Visit Provider Internal Medicine
DX: Z01.812 Encounter for preprocedural laboratory examination (principal); R07.9 Chest pain, unspecified; Z20.822 Contact with and (suspected) exposure to COVID-19
CPT/HCPCS: 36415; 80048; 85025; 86328

== ENCOUNTER 2020-03-30 08:27 | Day surgery (SDC) | payer OTHER, SELFPAY ==
[2020-03-30] VITALS (14 sets, daily range): BP systolic 92–129; BP diastolic 46–70; PULSE 46–58; RESP 12–19; TEMP 36.8; O2SAT 93–97; BMI 24.2
--- NOTE | 2020-03-30 07:15 | IR_ITS ---
APPROVED REPORT Patient Location: Outpatient Automobile Bumper Straightener: KAMALJIT Velázquez RT (R) PROCEDURES Left heart catheterization Left ventriculogram Selective coronary angiogram Drug-eluting stent deployment to the proximal LAD INDICATION Accelerated angina pectoris, In-stent restenosis, Known coronary artery disease Informed consent was obtained prior to the procedure. COMPLICATIONS NONE Estimated Blood Loss: LESS THAN 10 ML TECHNIQUE One percent lidocaine used to anesthetize the right anterior aspect of the wrist. The right radial artery was accessed via the Seldinger technique. A 6 Somali sheath was placed in the right radial artery. 2.5 mg of verapamil, 800 mcg of nitroglycerin, 1mg Lidocaine and 5000 U Heparin were given through the arterial sheath. The trap catheter was also used to perform left heart catheterization, left ventriculogram and selective coronary angiogram. At the end of the diagnostic angiogram therapeutic heparin was administered giving a therapeutic ACT. And Cellabusari left guide catheter was placed in the left main artery and a Choice PT wire was placed distally in the LAD. A 3.5 x 33 mm Xience drug-eluting stent was deployed at 20 rodolfo reducing the stenosis. 3.5 x 8 mm noncompliant balloon was then placed in the distal aspect of the stent and postdilated at 24 rodolfo on 2 occasion to further post dilate. Excellent angiographic results were obtained at the end of the procedure the apparatus was removed the sheath was removed and hemostasis was achieved using TR banding patient was transferred to the postop holding area stable condition. KARLENE-3 flow was present before and after the procedure. ANGIOGRAPHIC RESULTS The left main artery Normal The left anterior descending artery Has a stent in the proximal segment which is widely patent and then has concentric 70% in-stent restenosis in the distal aspect of this proximal LAD stent remaining vessel is normal The circumflex artery Nondominant with mild 10 to 20% proximal concentric stenosis The right coronary artery Is a dominant vessel and has a stent in the mid segment which is widely patent with minimal in-stent restenosis. Distally the vessel has mild luminal irregularities The CALLEJAS ventriculogram reveals Normal 65% The left ventricular end-diastolic pressure 10 mmHg IMPRESSION Proximal LAD in-stent restenosis as described above Successful stent to the proximal LAD severe disease reduced to less than 10% with 1 drug-eluting stent Normal ejection fraction Normal left ventricular end-diastolic pressure PLAN 1. Dual antiplatelet therapy 2. Risk factor modification 3. LDL less than 55 4. Avoidance of tobacco products Electronically signed by : Jad Montanez, 03/31/2020 14:29:46
[2020-03-30 14:52] LABS: CATHL Activated Clotting Time > 400 SEC (74-125)
== END 2020-03-30 14:34 | disposition home or self-care (01) ==
LOC: CATHLAB 08:29
PROVIDERS: PCP Emergency Medicine; Visit Provider Internal Medicine
DX: I25.118 Atherosclerotic heart disease of native coronary artery with other forms of angina pectoris (principal); E78.5 Hyperlipidemia, unspecified; I10 Essential (primary) hypertension; J44.9 Chronic obstructive pulmonary disease, unspecified; K21.9 Gastro-esophageal reflux disease without esophagitis; Z87.891 Personal history of nicotine dependence; T82.855A Stenosis of coronary artery stent, initial encounter; Z88.0 Allergy status to penicillin; Z88.8 Allergy status to other drugs, medicaments and biological substances; Z79.82 Long term (current) use of aspirin; Z79.899 Other long term (current) drug therapy
CPT/HCPCS: 85347; 92928; 93458; 99152; 99153; C1725; C1769; C1876; C9600; J1644; Q9967

== ENCOUNTER 2020-04-09 17:47 | Emergency (ER) | payer OTHER, SELFPAY ==
--- NOTE | 2020-04-09 17:48 | ECG_ITS ---
APPROVED REPORT Exam: Resting ECG HR:66 bpm ECG Measurements Heart Rate 66 AXES NJ 150 P 63 QRSd 88 QRS 73 QT 398 T 30 QTc 417 Conclusion Normal sinus rhythm Normal ECG Electronically signed by : Brody Andrade, 04/10/2020 06:00:35
[2020-04-09 17:52] VITALS: BP 158/91; PULSE 68; RESP 16; TEMP 36.9; O2SAT 96; BMI 23.5
--- NOTE | 2020-04-09 18:04 | PC.NURSE ---
Sent EKG to Dr. Montanez. Paged him also and spoke with him due to Dr. Cartwright being in code in the Unit. Pt LAD was stented approx. [address] Montanez advised to give the patient a sublingual nitro and 4mg of morphine.
--- NOTE | 2020-04-09 18:07 | XR_ITS ---
PROCEDURE: XR CHEST 2V CLINICAL HISTORY: chest pain Current smoker COMPARISON: CT AGCHEST CT angio chest from 06/28/2017 DX XR CHEST 2V from 12/24/2018 CR XR CHEST 2V from 10/02/2019 CR XR CHEST 2V from 10/27/2019 FINDINGS: The cardiomediastinal silhouette and pulmonary vascularity are within normal limits. There is a coronary artery stent in place. There is mild coarsening of the bronchovascular markings which may be seen with smoking related lung disease. No lobar consolidation or collapse. No change with no acute finding. No acute bony abnormalities. IMPRESSION: COPD. No change with no acute finding Dictated by: Jevon Stapleton MD 04/10/2020 04:26 Jevon Stapleton MD in [place] 04/10/2020 04:26
--- NOTE | 2020-04-09 18:09 | PC.NURSE ---
Dr. Cartwright returned fro formerly [facility], spoke with her about patient and let her know I Spoke with Dr. Montanez and what he had asked for. 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
--- NOTE | 2020-04-09 18:13 | HMH.EDGENADL ---
ED Disposition Clinical Impression: Chest pain Qualifiers: Chest pain type: other chest pain Qualified Code(s): R07.89 - Other chest pain Disposition: Home, Self-Care Condition on Discharge: Fair Referrals: PCP,No [Non-Staff] - Time of Disposition: 19:06 - Critical Care Critical Care Time: No Attestation: On 04/09/20, the high probability of a clinically significant, sudden or life threatening deterioration of the following system(s) required my full and direct attention, intervention and personal management. The time I documented below is in addition to time spent performing reported procedures but includes the following listed in this critical care notation. Medical Decision Making - Medical Records Medical records reviewed: Yes: I reviewed the patient's medical records. - Anejl Inquiry Pt receiving controlled substance: No Vital Signs: 04/09/20 17:52 04/09/20 18:39 Temperature 98.5 F Temperature Source Oral Pulse Rate [Right] 68 72 Respiratory Rate 16 Blood Pressure [Right Arm] 158/91 H 123/73 Blood Pressure Mean [Right Arm] 113 89 Blood Pressure Source [Right Arm] Automatic Cuff Blood Pressure Position [Right Arm] Sitting 02 Sat by Pulse Oximetry 96 93 L Oxygen Delivery Method Room Air Room Air - Lab Data Lab Results 04/09/20 17:50: WBC 9.4, RBC 4.63, Hgb 14.9, Hct 46.1, MCV 99.5 H, MCH 32.1 H, MCHC 32.2, RDW 13.1, Plt Count 250, MPV 7.2 L, Neut % (Auto) 66.3, Lymph % (Auto) 24.6, [place] % (Auto) 5.7, Eos % (Auto) 2.7, Baso % (Auto) 0.7, Neut # (Auto) 6.3, Lymph # (Auto) 2.3, [place] # (Auto) 0.5, Eos # (Auto) 0.3, Baso # (Auto) 0.1 04/09/20 17:50: NT-Pro-B Natriuret Pep 36.7 04/09/20 17:55: Sodium 141, Potassium 3.9, Chloride 105, Carbon Dioxide 32 H, Anion Gap 7.9, BUN 22 H, Creatinine 1.10, Estimated Creat Clear 70, Estimated GFR 69, Est GFR ( Amer) 83, Glucose 99, Calcium 9.8, Troponin I < 0.01 Result diagrams: 04/09/20 17:50 04/09/20 17:55 Orders (Tests/Meds): ED MEDICATIONS Discontinued Medications Generic Name Dose Route Start Last Admin Trade Name Ulisses PRN Reason Stop Dose Admin Sodium Chloride 1,000 mls @ 999 mls/hr 04/09/20 18:45 04/09/20 18:39 Sod Chlor 0.9% 1000ml Bag IV 04/09/20 19:45 999 mls/hr .Q1H1M CORRIE Administration Morphine Sulfate 4 mg 04/09/20 18:07 04/09/20 18:39 Morphine 4mg/Ml Syringe IV 04/09/20 18:08 4 mg ONCE ONE Administration Nitroglycerin 0.4 mg 04/09/20 18:07 04/09/20 18:34 Nitroglycerin 0.4mg Sl Tablet SL 04/09/20 18:08 0.4 mg ONCE ONE Administration Ondansetron HCl 4 mg 04/09/20 18:18 04/09/20 18:39 Ondansetron 4mg/2ml Vial IV 04/09/20 18:19 4 mg ONCE ONE Administration ORDERS Category Date Time Status CXR 2 view (NOT portable) [XR chest 2V] Stat Exams 04/09/20 18:07 Taken Covid-19 Nasal PCR ([facility] [place]) Routine Lab 04/09/20 18:21 Received Troponin I Q3H Lab 04/09/20 21:15 Ordered Troponin I Q3H Lab 04/10/20 00:15 Ordered EKG Request [ECG Request by /Artur] Stat Y 04/09/20 18:07 Ordered - BECKY Score for Non-Stemi Age of Patient: 50-59 years old Heart Rate: 50-69 bpm Systolic Blood Pressure: 140-159 mmHg Serum Creatinine: 0.80-1.19 mg/dl CHF Kill[place] Class: I-No CHF Other Risk Factors: None Non-Stemi Risk Score: 75 Medical Decision Narrative: In summary this is a 59-year-old male with history of CAD, recent LAD stent placement, presenting to the emergency department with chest pain and malaise. Patient clinically stable on arrival. Vital signs within normal limits. Differential diagnoses include acute coronary syndrome, vasospasm, stent occlusion, pericarditis, myocarditis. Will obtain CBC, BMP, chest x-ray, EKG, troponin profile. Initial EKG is reassuring, nonischemic. Dr. Montanez consulted. Patient given 0.4 mg nitroglycerin and 4 mg IV morphine. Initial laboratory results are reassuring. No leukocytosis. No anemia. Troponin is not elevated. BNP is within normal l
[2020-04-09 18:16] LABS: Basophils # 0.1 K/mm3 (0-0.2); Basophils % 0.7 % (0.1-2.0); Eosinophils # 0.3 K/mm3 (0.0-0.4); Eosinophils % 2.7 % (0.1-12.0); Hematocrit 46.1 % (42.0-52.0); Hemoglobin 14.9 g/dL (14.1-18.0); Lymphocytes # 2.3 K/mm3 (0.7-4.5); Lymphocytes % 24.6 % (10-50); Mean Corpuscular HGB Conc 32.2 g/dL (31.8-35.4); Mean Corpuscular Hemoglobin 32.1 pg (27.0-31.2); Mean Corpuscular Volume 99.5 fl (80-94); Mean Platelet Volume 7.2 fl (7.4-10.4); Monocytes # 0.5 K/mm3 (0.1-1.0); Monocytes % 5.7 % (1.7-9.3); Neutrophils # 6.3 K/mm3 (1.8-7.8); Neutrophils % 66.3 % (37.0-80.0); Platelet Count 250 K/mm3 (142-424); Red Blood Count 4.63 M/mm3 (4.60-6.20); Red Cell Distribution Width 13.1 % (11.5-17.5); White Blood Count 9.4 K/mm3 (4.8-10.8)
[2020-04-09 18:17] LABS: Chloride 105 mmol/L (98-107); Potassium 3.9 mmoL/L (3.5-5.1); Sodium 141 mmol/L (136-145)
[2020-04-09 18:20] LABS: Anion Gap 7.9 mEq/L (5-15); Blood Urea Nitrogen 22 mg/dl (9-20); Carbon Dioxide 32 mmol/L (22.0-30.0); Creatinine Clearance Estimated 70 mL/min (50-200); Estimated Glomerular Filt Rate 69 ml/min (>60); GFR (African American) 83 ML/MIN (>60)
[2020-04-09 18:21] LABS: Calcium 9.8 mg/dl (8.4-10.2); Glucose 99 mg/dl (74-100)
[2020-04-09 18:30] LABS: NT Pro Brain Natriuretic Pep. 36.7 pg/mL (0-125)
--- NOTE | 2020-04-09 18:33 | PC.NURSE ---
PT P/S OF 10/13 DR RAHMAN REQUEST NTG I SPOKE WITH THE PT ONLY ALLERGY TO NTG IS HE FEELS JITTERY , PT GIVEN NTG 0.4 MG SL W/INITIAL PRESSURE OF 148/79 HR 67 O2 SAT 95%RA AFTER NTG AND MORPHINE PS 06/13 WITH PRESSURE OF 119/71 HR 74 O2 SAT 96%. PT FEELS FINE AND IS GOING TO RADIOLOGY VIA W/C
[2020-04-09 18:36] LABS: Troponin I < 0.01 ng/ml (0.00-0.034)
--- NOTE | 2020-04-09 18:36 | PC.NURSE ---
Pt to rad.
[2020-04-09 18:39] VITALS: BP 123/73; PULSE 72; O2SAT 93
--- NOTE | 2020-04-09 19:32 | PC.NURSE ---
Alexx Montanez at this time
--- NOTE | 2020-04-09 19:33 | PC.NURSE ---
speaking with Lisseth at this time
[2020-04-09 21:12] VITALS: BP 111/70; PULSE 57; RESP 16; O2SAT 97
[2020-04-09 21:22] LABS: Adenovirus,PCR Not Detected (NotDetected); Bordetella Pertussis Not Detected (NotDetected); Chlamydophila Pneumoniae, PCR Not Detected (NotDetected); Coronavirus 19, PCR Not Detected (NotDetected); Coronavirus 229E Not Detected (NotDetected); Coronavirus NL63 Not Detected (NotDetected); Coronavirus OC43 Not Detected (NotDetected); Coronovirus HKU1,PCR Not Detected (NotDetected); Human Metapneumovirus Not Detected (NotDetected); Influenza A, PCR Not Detected (NotDetected); Influenza AH1, 2009 Not Detected (NotDetected); Influenza AH1, PCR Not Detected (NotDetected); Influenza AH3,PCR Not Detected (NotDetected); Influenza B, PCR Not Detected (NotDetected); Mycoplasma Pneumoniae, PCR Not Detected (NotDetected); Parainfluenza 1, PCR Not Detected (NotDetected); Parainfluenza 2, PCR Not Detected (NotDetected); Parainfluenza 3, PCR Not Detected (NotDetected); Parainfluenza 4, PCR Not Detected (NotDetected); Respiratory Syncytial Virus Not Detected (NotDetected); Rhinovirus/Enterovirus Not Detected (NotDetected)
[2020-04-09 21:36] LABS: Troponin I < 0.01 ng/ml (0.00-0.034)
[2020-04-09 21:43] VITALS: BP 117/72; PULSE 53; RESP 20; TEMP 36.9; O2SAT 97
== END 2020-04-09 21:50 | disposition home or self-care (01) ==
PROVIDERS: Emergency Provider Emergency Medicine; PCP Emergency Medicine
DX: R07.89 Other chest pain (principal); I25.10 Atherosclerotic heart disease of native coronary artery without angina pectoris; F41.8 Other specified anxiety disorders; K21.9 Gastro-esophageal reflux disease without esophagitis; I10 Essential (primary) hypertension; E78.5 Hyperlipidemia, unspecified; F17.210 Nicotine dependence, cigarettes, uncomplicated; Z79.899 Other long term (current) drug therapy
CPT/HCPCS: 71046; 80048; 83880; 84484; 85025; 87581; 87633; 87798; 93005; 96365; 96375; 99283; J2405

== ENCOUNTER 2020-04-10 12:44 | Day surgery (SDC) | payer OTHER, SELFPAY ==
[2020-04-10] VITALS (10 sets, daily range): BP systolic 98–124; BP diastolic 57–67; PULSE 46–60; RESP 16–20; O2SAT 96–100; BMI 23.8
--- NOTE | 2020-04-10 13:29 | IR_ITS ---
APPROVED REPORT Patient Location: Outpatient PROCEDURES Left heart catheterization Left ventriculogram Selective coronary angiogram INDICATION Recent coronary stenting, Recalcitrant angina pectoris class IV Informed consent was obtained prior to the procedure. COMPLICATIONS none Estimated Blood Loss: less than 10 mls TECHNIQUE One percent lidocaine used to anesthetize the right anterior aspect of the wrist. The right radial artery was accessed via the Seldinger technique. A 6 Pakistani sheath was placed in the right radial artery. 2.5 mg of verapamil, 800 mcg of nitroglycerin, 1mg Lidocaine and 5000 U Heparin were given through the arterial sheath. The trap catheter was also used to perform left heart catheterization, left ventriculogram and selective coronary angiogram. At the end of the procedure the sheath was removed good hemostasis was achieved using Traclet band, patient was transferred to the postop holding area in stable condition. ANGIOGRAPHIC RESULTS The left main artery Normal The left anterior descending artery Has a stent in the proximal to mid LAD which is widely patent free of in-stent restenosis with excellent proximal distal transitioning. Further down in the mid LAD at a 2 mm segment there is a 40 to 50% nonflow limiting stenosis which is mostly along an anatomical kink The circumflex artery Is a nondominant yet still large vessel with proximal 20 to 30% concentric stenosis The right coronary artery Is a dominant vessel with proximal 10% stenosis mid vessel stent which has 30% concentric in-stent restenosis. Distally there are 20% stenoses. The posterior descending artery has a proximal 30 to 40% concentric stenosis The CALLEJAS ventriculogram reveals Preserved 55 to 60% The left ventricular end-diastolic pressure 20 mmHg IMPRESSION Widely patent coronary arteries as described above Preserved ejection fraction Mildly elevated LVEDP Angina pectoris almost certainly stemming from stent arteritis or possible endothelial dysfunction PLAN 1. Maximize antianginal medications 2. Avoidance of tobacco products Electronically signed by : aJd Montanez, 04/10/2020 16:29:38
== END 2020-04-10 19:04 | disposition home or self-care (01) ==
LOC: CATHLAB 12:46
PROVIDERS: PCP Emergency Medicine; Visit Provider Internal Medicine
DX: I25.110 Atherosclerotic heart disease of native coronary artery with unstable angina pectoris (principal); J44.9 Chronic obstructive pulmonary disease, unspecified; I10 Essential (primary) hypertension; Z72.0 Tobacco use; Z79.82 Long term (current) use of aspirin; Z88.0 Allergy status to penicillin; Z88.8 Allergy status to other drugs, medicaments and biological substances; Z79.899 Other long term (current) drug therapy
CPT/HCPCS: 93458; 99152; C1725; C1769; J1644; Q9967

== ENCOUNTER → 2020-05-22 16:46 | Outpatient (CLI) | payer OTHER, SELFPAY ==
[2020-05-22 19:17] LABS: Amphetamine/Metha Screen,Urine Negative ng/ml (<1000); Barbiturates Screen,Urine Negative ng/ml (<200)
[2020-05-22 19:18] LABS: Benzodiazepines Screen,Urine Negative ng/ml (<200); Cannabinoid Screen,Urine Negative ng/ml (<50)
[2020-05-22 19:19] LABS: Cocaine Screen,Urine Negative ng/ml (<300)
[2020-05-22 19:21] LABS: Methadone Screen,Urine Negative ng/ml (<300)
[2020-05-22 19:22] LABS: Opiate Screen,Urine Negative ng/ml (<300); Phencyclidine Screen,Urine Negative ng/ml (<25)
== END ==
PROVIDERS: Visit Provider Emergency Medicine
DX: Z79.899 Other long term (current) drug therapy (principal)
CPT/HCPCS: 80305

== ENCOUNTER → 2020-05-26 10:54 | Outpatient (CLI) | payer OTHER, SELFPAY ==
[2020-05-26 11:16] LABS: Basophils # 0.1 K/mm3 (0-0.2); Basophils % 0.7 % (0.1-2.0); Eosinophils # 0.6 K/mm3 (0.0-0.4); Eosinophils % 7.5 % (0.1-12.0); Hematocrit 46.8 % (42.0-52.0); Hemoglobin 15.5 g/dL (14.1-18.0); Lymphocytes # 1.9 K/mm3 (0.7-4.5); Lymphocytes % 24.3 % (10-50); Mean Corpuscular HGB Conc 33.1 g/dL (31.8-35.4); Mean Corpuscular Hemoglobin 32.7 pg (27.0-31.2); Mean Corpuscular Volume 98.7 fl (80-94); Mean Platelet Volume 7.2 fl (7.4-10.4); Monocytes # 0.4 K/mm3 (0.1-1.0); Monocytes % 4.7 % (1.7-9.3); Neutrophils # 4.8 K/mm3 (1.8-7.8); Neutrophils % 62.8 % (37.0-80.0); Platelet Count 308 K/mm3 (142-424); Red Blood Count 4.74 M/mm3 (4.60-6.20); Red Cell Distribution Width 13.3 % (11.5-17.5); White Blood Count 7.6 K/mm3 (4.8-10.8)
[2020-05-26 12:17] LABS: Alanine Aminotransferase 15 U/L (12-78); Albumin Level 4.2 g/dl (3.5-5.0); Albumin/Globulin Ratio 1.4 (1.1-1.8); Alkaline Phosphatase 89 U/L (38-126); Anion Gap 11.5 mEq/L (5-15); Aspartate Amino Transferase 26 U/L (17-59); Bilirubin,Total 0.9 mg/dl (0.2-1.3); Blood Urea Nitrogen 20 mg/dl (9-20); Calcium 9.7 mg/dl (8.4-10.2); Carbon Dioxide 23 mmol/L (22.0-30.0); Chloride 108 mmol/L (98-107); Estimated Glomerular Filt Rate 69 ml/min (>60); GFR (African American) 83 ML/MIN (>60); Globulin 2.9 g/dL (1.3-3.2); Glucose 103 mg/dl (74-100); Magnesium 1.9 mg/dl (1.6-2.3); Potassium 4.5 mmoL/L (3.5-5.1); Sodium 138 mmol/L (136-145); Total Protein,Serum 7.1 g/dl (6.3-8.2)
== END ==
PROVIDERS: Visit Provider Physician Assistant
DX: I10 Essential (primary) hypertension (principal); E78.2 Mixed hyperlipidemia; I20.9 Angina pectoris, unspecified; I25.118 Atherosclerotic heart disease of native coronary artery with other forms of angina pectoris; I49.9 Cardiac arrhythmia, unspecified; R00.2 Palpitations
CPT/HCPCS: 36415; 80053; 83735; 85025

== ENCOUNTER 2020-07-02 12:44 | Observation (INO) | payer OTHER, SELFPAY ==
[2020-07-02] VITALS (19 sets, daily range): BP systolic 98–148; BP diastolic 61–86; PULSE 45–58; RESP 16–24; TEMP 36.6–36.8; O2SAT 95–100; BMI 24.2; BMI 23.8
--- NOTE | 2020-07-02 12:38 | ECG_ITS ---
APPROVED REPORT Exam: Resting ECG HR:56 bpm ECG Measurements Heart Rate 56 AXES RI 158 P 62 QRSd 78 QRS 35 QT 412 T 37 QTc 397 Conclusion Sinus bradycardia Otherwise normal ECG Electronically signed by : Brody Andrade, 07/03/2020 10:35:53
--- NOTE | 2020-07-02 12:51 | XR_ITS ---
PROCEDURE: XR CHEST PORTABLE CLINICAL HISTORY: chest pain COMPARISON: CT AGCHEST CT angio chest from 06/28/2017 CR XR CHEST 2V from 10/02/2019 CR XR CHEST 2V from 10/27/2019 CR XR CHEST 2V from 04/09/2020 FINDINGS: The cardiomediastinal silhouette and pulmonary vascularity are within normal limits. Coronary artery stent noted on the left. No acute bony abnormalities. IMPRESSION: No acute findings. Dictated by: Jevon Stapleton MD 07/02/2020 14:58 Jevon Stapleton MD in [place] 07/02/2020 14:58
--- NOTE | 2020-07-02 13:03 | HMH.EDCP ---
ED Disposition Clinical Impression: Chest pain Disposition: Admitted As Inpatient Condition on Discharge: Good - Critical Care Critical Care Time: No Attestation: On 07/02/20, the high probability of a clinically significant, sudden or life threatening deterioration of the following system(s) required my full and direct attention, intervention and personal management. The time I documented below is in addition to time spent performing reported procedures but includes the following listed in this critical care notation. Medical Decision Making - Medical Records Medical records reviewed: Yes: I reviewed the patient's medical records. - Anjel Inquiry Pt receiving controlled substance: No Vital Signs: 07/02/20 12:45 07/02/20 13:00 07/02/20 13:30 Temperature 98.3 F Temperature Source Oral Pulse Rate 55 L 53 L Pulse Rate [Right] 56 L Respiratory Rate 16 16 24 Blood Pressure 132/80 124/79 Blood Pressure [Right Arm] 143/82 H Blood Pressure Mean 97 91 Blood Pressure Mean [Right Arm] 102 Blood Pressure Source Blood Pressure Source [Right Arm] Automatic Cuff Blood Pressure Position Blood Pressure Position [Right Arm] Sitting 02 Sat by Pulse Oximetry 100 97 99 Oxygen Delivery Method Room Air 07/02/20 13:38 07/02/20 14:00 07/02/20 14:30 Temperature Temperature Source Pulse Rate 51 L 52 L 51 L Pulse Rate [Right] Respiratory Rate 16 20 22 Blood Pressure 124/79 127/79 132/83 Blood Pressure [Right Arm] Blood Pressure Mean 96 97 Blood Pressure Mean [Right Arm] Blood Pressure Source Automatic Cuff Blood Pressure Source [Right Arm] Blood Pressure Position Sitting Blood Pressure Position [Right Arm] 02 Sat by Pulse Oximetry 96 99 98 Oxygen Delivery Method Room Air 07/02/20 15:00 07/02/20 15:30 07/02/20 16:55 Temperature Temperature Source Pulse Rate 53 L 55 L 47 L Pulse Rate [Right] Respiratory Rate 18 16 16 Blood Pressure 144/80 H 148/81 H Blood Pressure [Right Arm] Blood Pressure Mean 93 98 Blood Pressure Mean [Right Arm] Blood Pressure Source Blood Pressure Source [Right Arm] Blood Pressure Position Blood Pressure Position [Right Arm] 02 Sat by Pulse Oximetry 98 99 97 Oxygen Delivery Method Room Air 07/02/20 18:02 07/02/20 18:16 07/02/20 18:30 Temperature 98.3 F Temperature Source Oral Pulse Rate 50 L 54 L 50 L Pulse Rate [Right] Respiratory Rate 18 18 18 Blood Pressure 98/79 L 146/81 H 132/86 Blood Pressure [Right Arm] Blood Pressure Mean 84 99 101 Blood Pressure Mean [Right Arm] Blood Pressure Source Automatic Cuff Blood Pressure Source [Right Arm] Blood Pressure Position Sitting Blood Pressure Position [Right Arm] 02 Sat by Pulse Oximetry 98 98 98 Oxygen Delivery Method Room Air - Lab Data Lab Results 07/02/20 12:54: WBC 10.0, RBC 4.59 L, Hgb 14.9, Hct 45.9, MCV 100.0 H, MCH 32.5 H, MCHC 32.5, RDW 13.4, Plt Count 276, MPV 7.1 L, Neut % (Auto) 62.3, Lymph % (Auto) 25.9, [place] % (Auto) 4.2, Eos % (Auto) 6.6, Baso % (Auto) 1.0, Neut # (Auto) 6.2, Lymph # (Auto) 2.6, [place] # (Auto) 0.4, Eos # (Auto) 0.7 H, Baso # (Auto) 0.1 07/02/20 12:54: Sodium 138, Potassium 4.2, Chloride 106, Carbon Dioxide 26, Anion Gap 10.2, BUN 18, Creatinine 1.10, Estimated Creat Clear 70, Estimated GFR 69, Est GFR ( Amer) 83, Glucose 101 H, Calcium 9.1, Troponin I < 0.01 07/02/20 12:54: Hemoglobin A1c 5.7 07/02/20 12:54: Triglycerides 78, Cholesterol 113 L, LDL Cholesterol Direct 55.13 L, VLDL Cholesterol 16, HDL Cholesterol 37 L, Cholesterol/HDL Ratio 3.1 07/02/20 12:54: TSH 1.51 07/02/20 12:54: PT 10.6, INR 0.89 L, APTT 25.6 07/02/20 15:43: Troponin I < 0.01 Result diagrams: 07/02/20 12:54 07/02/20 12:54 Orders (Tests/Meds): ED MEDICATIONS Generic Name Dose Route Start Last Admin Trade Name Freq PRN Reason Stop Dose Admin Nitroglycerin 0.4 mg 07/02/20 12:53 Nitroglycerin 0.4mg Sl T
[2020-07-02 13:04] LABS: Basophils # 0.1 K/mm3 (0-0.2); Eosinophils # 0.7 K/mm3 (0.0-0.4); Eosinophils % 6.6 % (0.1-12.0); Hematocrit 45.9 % (42.0-52.0); Hemoglobin 14.9 g/dL (14.1-18.0); Lymphocytes # 2.6 K/mm3 (0.7-4.5); Lymphocytes % 25.9 % (10-50); Mean Corpuscular HGB Conc 32.5 g/dL (31.8-35.4); Mean Corpuscular Hemoglobin 32.5 pg (27.0-31.2); Mean Platelet Volume 7.1 fl (7.4-10.4); Monocytes # 0.4 K/mm3 (0.1-1.0); Monocytes % 4.2 % (1.7-9.3); Neutrophils # 6.2 K/mm3 (1.8-7.8); Neutrophils % 62.3 % (37.0-80.0); Platelet Count 276 K/mm3 (142-424); Red Blood Count 4.59 M/mm3 (4.60-6.20); Red Cell Distribution Width 13.4 % (11.5-17.5)
[2020-07-02 13:06] LABS: Chloride 106 mmol/L (98-107)
[2020-07-02 13:07] LABS: Potassium 4.2 mmoL/L (3.5-5.1); Sodium 138 mmol/L (136-145)
[2020-07-02 13:09] LABS: Blood Urea Nitrogen 18 mg/dl (9-20); Creatinine Clearance Estimated 70 mL/min (50-200); Estimated Glomerular Filt Rate 69 ml/min (>60); GFR (African American) 83 ML/MIN (>60)
[2020-07-02 13:10] LABS: Anion Gap 10.2 mEq/L (5-15); Calcium 9.1 mg/dl (8.4-10.2); Carbon Dioxide 26 mmol/L (22.0-30.0); Glucose 101 mg/dl (74-100)
[2020-07-02 13:28] LABS: Troponin I < 0.01 ng/ml (0.00-0.034)
--- NOTE | 2020-07-02 13:37 | PC.NURSE ---
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
--- NOTE | 2020-07-02 13:46 | CT_ITS ---
PROCEDURE: CT ANGIO CHEST CLINCIAL INDICATION: aortic dissection COMPARISON: [facility] CT angio chest from 06/28/2017 TECHNIQUE: IV Contrast: 70ML Isovue 370 Axial images obtained with sagittal and coronal reformats. All CT scans at the facility use one or more dose reduction, viz: automated exposure control, ma/kV adjustment per patient size (including targeted exams where dose is matched to indication, i.e. head), or iterative reconstruction technique. FINDINGS: HEART AND MEDIASTINAL STRUCTURES: No evidence of pulmonary embolus, aortic aneurysm, or aortic dissection. Coronary artery stent is present within the LAD and RCA. No mediastinal or hilar mass or adenopathy. Few small nodes are present in the subcarinal region slightly more prominent.. LUNGS AND PLEURAL SPACES: COPD changes with evidence of old granulomatous disease. Minimal atelectatic or fibrotic changes present in the posterior lung bases. No suspicious nodule. No consolidation or collapse. Mild scarring in the lingula. BONY STRUCTURES: No acute bony abnormalities apparent. UPPER ABDOMEN: Unremarkable. ADDITIONAL FINDINGS: No other significant abnormalities. IMPRESSION: No acute finding. No evidence of aortic aneurysm dissection or pulmonary embolus. COPD changes with old granulomatous disease Dictated by: Jevon Stapleton MD 07/02/2020 14:43 Jevon Stapleton MD in [facility] 07/02/2020 14:43
--- NOTE | 2020-07-02 15:10 | PC.NURSE ---
Calling Mary Mir at this time
--- NOTE | 2020-07-02 15:29 | PC.NURSE ---
Dr Gomez spoke with Dr Montanez
[2020-07-02 15:33] LABS: Chol/HDL Ratio 3.1 (1-3.5); Cholesterol 113 mg/dl (140-200); HDL Cholesterol 37 mg/dl (40-60); Triglycerides 78 mg/dl (30-150); VLDL Cholesterol 16 mg/dL (0-40)
[2020-07-02 15:37] LABS: Adenovirus,PCR Not Detected (NotDetected); Bordetella Pertussis Not Detected (NotDetected); Chlamydophila Pneumoniae, PCR Not Detected (NotDetected); Coronavirus 19, PCR Not Detected (NotDetected); Coronavirus 229E Not Detected (NotDetected); Coronavirus NL63 Not Detected (NotDetected); Coronavirus OC43 Not Detected (NotDetected); Coronovirus HKU1,PCR Not Detected (NotDetected); Human Metapneumovirus Not Detected (NotDetected); Influenza A, PCR Not Detected (NotDetected); Influenza AH1, 2009 Not Detected (NotDetected); Influenza AH1, PCR Not Detected (NotDetected); Influenza AH3,PCR Not Detected (NotDetected); Influenza B, PCR Not Detected (NotDetected); Mycoplasma Pneumoniae, PCR Not Detected (NotDetected); Parainfluenza 1, PCR Not Detected (NotDetected); Parainfluenza 2, PCR Not Detected (NotDetected); Parainfluenza 3, PCR Not Detected (NotDetected); Parainfluenza 4, PCR Not Detected (NotDetected); Respiratory Syncytial Virus Not Detected (NotDetected); Rhinovirus/Enterovirus Not Detected (NotDetected)
[2020-07-02 15:43] LABS: Hemoglobin A1C 5.7 % (4.0-6.0)
[2020-07-02 15:44] LABS: Direct LDL Cholesterol 55.13 mg/dL (100-129)
[2020-07-02 15:52] LABS: INR 0.89 (0.9-1.1); Prothrombin Time 10.6 seconds (10.1-12.5)
[2020-07-02 15:53] LABS: Activated Partial Thrombo Time 25.6 seconds (22.8-30.6)
--- NOTE | 2020-07-02 16:00 | PC.NURSE ---
Dr Gomez spoke with Dr Hernandez
[2020-07-02 16:11] LABS: Thyroid Stimulating Hormone 1.51 uIU/mL (0.465-4.68)
--- NOTE | 2020-07-02 16:16 | PC.NURSE ---
Pt resting in bed at this time, waiting on covid swab for admission
[2020-07-02 16:22] LABS: Troponin I < 0.01 ng/ml (0.00-0.034)
--- NOTE | 2020-07-02 17:02 | PC.NURSE ---
called dietary for supper tray. Lab advised covid swab have approx 1 1/2 hrs left
[2020-07-02 19:28] LABS: Troponin I < 0.01 ng/ml (0.00-0.034)
--- NOTE | 2020-07-02 19:36 | PC.NURSE ---
pt arrived to floor via w/c from ed/staff at 193
[2020-07-03] VITALS (16 sets, daily range): BP systolic 107–136; BP diastolic 56–73; PULSE 45–60; RESP 14–18; TEMP 36.4–36.6; O2SAT 95–100
--- NOTE | 2020-07-03 | IR_ITS ---
APPROVED REPORT Patient Location: Inpatient PROCEDURES Left heart catheterization Left ventriculogram Selective coronary angiogram INDICATION Known coronary disease, Unstable angina Informed consent was obtained prior to the procedure. COMPLICATIONS None Estimated Blood Loss: Less than 10 mls TECHNIQUE One percent lidocaine used to anesthetize the right anterior aspect of the wrist. The right radial artery was accessed via the Seldinger technique. A 6 [place] sheath was placed in the right radial artery. 2.5 mg of verapamil, 800 mcg of nitroglycerin, 1mg Lidocaine and 5000 U Heparin were given through the arterial sheath. The trap catheter was also used to perform left heart catheterization, left ventriculogram and selective coronary angiogram. At the end of the procedure the sheath was removed good hemostasis was achieved using Traclet band, patient was transferred to the postop holding area in stable condition. ANGIOGRAPHIC RESULTS The left main artery Normal The left anterior descending artery Has a stent in the proximal segment which extends into the mid segment in a contiguous manner. Proximal stent is widely patent. Distally there is a 20% concentric in-stent restenotic lesion. KARLENE-3 flow is present down the entire LAD. The circumflex artery Is a nondominant vessel with a proximal 20 to 30% concentric stenosis The right coronary artery Is a large dominant vessel with stents in the proximal through distal segment which are widely patent with excellent proximal distal transitioning. Large posterior descending artery and posterior lateral branch are widely patent with mild 10% stenosis The CALLEJAS ventriculogram reveals Normal 65% The left ventricular end-diastolic pressure 15 mmHg IMPRESSION Widely patent coronary arteries as described above as described above Normal ejection fraction Borderline elevated LVEDP PLAN 1. Recommend immediate tobacco cessation which is almost certainly the etiology for patient's microvascular spasm which is producing the class IV angina 2. Continue risk factor modification 3. Treatment of ischemic heart disease Electronically signed by : Jad Montanez, 07/06/2020 12:55:33
--- NOTE | 2020-07-03 04:41 | PC.NURSE ---
trash pulled at this time
--- NOTE | 2020-07-03 04:53 | PC.NURSE ---
pt is AxOx4, has complained of pain in chest area one time this shift and was treated per MAY, telemetry strips show SB, lungs CTA, remains on room air, NPO since midnight
--- NOTE | 2020-07-03 07:13 | HMH.PHAVTE ---
[facility] Pharmacy VTE Monitoring - Patient Demographics Admission date: 07/02/20 Report Date: 07/03/20 Time: 07:13 Allergies/Adverse Reactions: Patient Allergies Penicillins [PENICILLINS] Allergy (Mild, Verified 06/19/20 14:23) atorvastatin [From Lipitor] Allergy (Verified 06/19/20 14:23) nitroglycerin Adverse Reaction (Verified 06/19/20 14:23) ticagrelor [From Brilinta] Adverse Reaction (Verified 06/19/20 14:23) Height: 1.68 m Weight: 67.132 kg Patient Problems: Current Active Problems Chest pain (Acute) - VTE Risk Labs: VTE Related Lab Results Hgb 14.9 g/dL (14.1-18.0) 07/02/20 12:54 Hct 45.9 % (42.0-52.0) 07/02/20 12:54 Plt Count 276 K/mm3 (142-424) 07/02/20 12:54 PT 10.6 seconds (10.1-12.5) 07/02/20 12:54 INR 0.89 (0.9-1.1) L 07/02/20 12:54 APTT 25.6 seconds (22.8-30.6) 07/02/20 12:54 BUN 18 mg/dl (9-20) 07/02/20 12:54 Creatinine 1.10 mg/dl (0.66-1.25) 07/02/20 12:54 Estimated Creat Clear 70 mL/min (50-200) 07/02/20 12:54 VTE Score: 5 VTE Risk Level: Low Risk - Prophylaxis VTE Prophylaxis Ordered?: Yes Types of VTE Prophylaxis: TEDS Knee High Location of Applied Device: Bilateral Lower Extremeties
[2020-07-03 07:53] LABS: Basophils # 0.1 K/mm3 (0-0.2); Basophils % 0.8 % (0.1-2.0); Eosinophils # 0.9 K/mm3 (0.0-0.4); Eosinophils % 9.3 % (0.1-12.0); Hemoglobin 15.2 g/dL (14.1-18.0); Lymphocytes # 2.2 K/mm3 (0.7-4.5); Lymphocytes % 23.7 % (10-50); Mean Corpuscular HGB Conc 33.8 g/dL (31.8-35.4); Mean Corpuscular Hemoglobin 32.9 pg (27.0-31.2); Mean Corpuscular Volume 97.4 fl (80-94); Mean Platelet Volume 7.6 fl (7.4-10.4); Monocytes # 0.5 K/mm3 (0.1-1.0); Monocytes % 5.1 % (1.7-9.3); Neutrophils # 5.8 K/mm3 (1.8-7.8); Neutrophils % 61.2 % (37.0-80.0); Platelet Count 278 K/mm3 (142-424); Red Blood Count 4.62 M/mm3 (4.60-6.20); Red Cell Distribution Width 13.2 % (11.5-17.5); White Blood Count 9.5 K/mm3 (4.8-10.8)
--- NOTE | 2020-07-03 07:53 | HMH.CNCARD ---
History of Present Illness Consult date: 07/03/20 Requesting physician: Ander Hernandez Consult reason: chest pain Chief complaint: chest pain Additional Medical History:: 1. Tobacco use, continues A. COPD 2. CAD A. 2011 cardiac cath, clean per patient B. JEMMA to LAD and RCA, 05/2017 C. GXT myoview, 08/2017, No ischemia with normal LVEF D. GXT Myoview, 10/2019, did not achieve target heart rate (only 83%) with 12.8 METs of activity, no ischemia with EF 53% E. Left heart catheterization, 03/30/2020, JEMMA to LAD F. Left heart catheterization, 04/10/2020, repeated due to continued chest pain with LAD stent widely patent. 3. Strong FH of CAD in parents in their 40's 4. Anxiety 5. Hypertension A. Echo, 10/2019, EF 55%, no WMA, mild MR TR. 6. Palpitations, controlled on low-dose beta-ani 7. Hyperlipidemia, on statin therapy History of present illness: 59-year-old white male with known coronary artery disease and continued tobacco use presented to the emergency department yesterday for evaluation of chest pain. Onset of chest pain was 07/01/2020 while working in [employer]. He describes the sensation as substernal pressure and pain radiating to the jaw and left arm. Symptoms worse with activity including nausea and shortness of breath along with diaphoresis. Symptoms improved slightly with nitroglycerin sublingual. Onset of symptoms brought about near syncopal episode. Patient called the office yesterday for advice and was referred to the ER for evaluation. He was admitted for overnight observation with troponins returning normal x2 and EKG showing no acute ST segment changes. Patient has a recent cardiac catheterization in March with subsequent LAD stenting and follow-up cardiac catheterization approximately 10 days later due to continued and recurrent chest pain that showed widely patent LAD stent. Cardiology consulted for evaluation recommendation. Patient relates that his symptoms are as bad as they were in March and he describes himself as being sick without vomiting or diarrhea. He denies any increase in his tobacco use or missing any doses of his medication. CTA of the chest last evening showed no evidence of pulmonary embolus, aortic aneurysm or aortic dissection. [facility] History Medical History: Reports:: Anxiety, Chronic Obstructive Pulmonary Disease (COPD), Coronary Artery Disease, Depression, Gastroesophageal Reflux Disease(GERD), Hyperlipidemia, Hypertension Denies:: Cancer, Diabetes Mellitus Type 1, Diabetes Mellitus Type 2, Internal Pacemaker, MRSA, Seizures *Have you ever received a pneumonia vaccine?: No *Have you received a flu vaccine this season?: No Laterality Cases: Right: Other Other Surgeries: Yes: No Previous Surgery, Angiogram, Cardiac Catheterization, Coronary Stent, Other. No: Pacemaker Amputation: No Fractures: Yes (R tib/fib fx repair) - *Social History Smoking Status: Current every day smoker Tobacco Type: cigarettes # Packs/Day (cigarettes): 1 Alcohol Intake: never Alcohol Intake Frequency:: other Substance Use Type: denies use *Occupational Status:: employed Housing: house Household Members: family *Travel in the last 8 weeks: None - Psychiatric History Pschychiatric History:: Reports:: Anxiety, Depression Family Hx:: Coronary Artery Disease, Heart Attack, Hyperlipidemia, Hypertension Meds Home Medications Medication Instructions Recorded Confirmed Type aspirin 81 mg chewable tablet 81 mg PO DAILY tab 10/01/18 07/03/20 History Metoprolol Succinate [Metoprolol 25 mg PO DAILY 03/30/20 06/19/20 History Succinate 25mg Tablet*] prasugrel 10 mg tablet 10 mg PO DAILY #90 tab 04/29/20 07/02/20 Rx alprazolam 0.5 mg tablet 0.5 mg PO TID #90 tab 05/22/20 07/02/20 Rx Atorvastatin Calcium [Lipitor 20mg 20 mg PO HS 07/02/20 07/02/20 History Tab] Isosorbide Mononitrate [Imdur 30mg 30 mg PO DAILY 07/02/20 History ER tablet] Nitroglycerin 0.4 mg SUBLING
[2020-07-03 08:04] LABS: Chloride 104 mmol/L (98-107); Potassium 4.3 mmoL/L (3.5-5.1); Sodium 139 mmol/L (136-145)
[2020-07-03 08:07] LABS: Anion Gap 9.3 mEq/L (5-15); Blood Urea Nitrogen 21 mg/dl (9-20); Carbon Dioxide 30 mmol/L (22.0-30.0); Cholesterol 116 mg/dl (140-200); Creatinine Clearance Estimated 69 mL/min (50-200); Estimated Glomerular Filt Rate 69 ml/min (>60); GFR (African American) 83 ML/MIN (>60); Phosphorous 3.8 mg/dl (2.5-4.5); Triglycerides 215 mg/dl (30-150); VLDL Cholesterol 43 mg/dL (0-40)
[2020-07-03 08:08] LABS: Calcium 9.3 mg/dl (8.4-10.2); Chol/HDL Ratio 3.7 (1-3.5); Glucose 106 mg/dl (74-100); HDL Cholesterol 31 mg/dl (40-60); Magnesium 1.9 mg/dl (1.6-2.3)
[2020-07-03 08:19] LABS: Direct LDL Cholesterol 51.26 mg/dL (100-129)
--- NOTE | 2020-07-03 08:57 | HMH.PHAINT ---
MEDICATION RECONCILIATION COMPLETED USING EXTERNAL FILL HISTORY AND HOME PHARMACY
--- NOTE | 2020-07-03 09:25 | PC.NURSE ---
Pt asked about allergy to nitroglycerin which was in his chart. Pt states he is not allergic. Nitroglycerin removed from allergy list at this time.
--- NOTE | 2020-07-03 16:08 | HMH.HPDC ---
General - General Admission date:: 07/02/20 Discharge date: 07/03/20 *Admission Date: 07/02/20 *Chief complaint: chest pain *History of present illness: 59-year-old male with known coronary artery disease and continued tobacco use presented to the emergency department yesterday for evaluation of chest pain. Onset of chest pain was 07/01/2020 while working in [email or web address] He describes the sensation as substernal pressure and pain radiating to the jaw and left arm. Symptoms worse with activity including nausea and shortness of breath along with diaphoresis. Symptoms improved slightly with nitroglycerin sublingual. Onset of symptoms brought about near syncopal episode. Patient called the office yesterday for advice and was referred to the ER for evaluation. per cardiology [facility] History I have reviewed the patient's past medical history: Yes Medical History: Reports:: Anxiety, Chronic Obstructive Pulmonary Disease (COPD), Coronary Artery Disease, Depression, Gastroesophageal Reflux Disease(GERD), Hyperlipidemia, Hypertension Denies:: Cancer, Diabetes Mellitus Type 1, Diabetes Mellitus Type 2, Internal Pacemaker, MRSA, Seizures *Have you ever received a pneumonia vaccine?: No *Have you received a flu vaccine this season?: No Laterality Cases: Right: Other Other Surgeries: Yes: No Previous Surgery, Angiogram, Cardiac Catheterization, Coronary Stent, Other. No: Pacemaker Amputation: No Fractures: Yes (R tib/fib fx repair) - *Social History Smoking Status: Current every day smoker Tobacco Type: cigarettes # Packs/Day (cigarettes): 1 Alcohol Intake: never Alcohol Intake Frequency:: other Substance Use Type: denies use *Occupational Status:: employed Housing: house Household Members: family *Travel in the last 8 weeks: None - Psychiatric History Pschychiatric History:: Reports:: Anxiety, Depression Family Hx:: Coronary Artery Disease, Heart Attack, Hyperlipidemia, Hypertension Review of Systems - Review of Systems Review of systems:: pertinent systems reviewed and negative unless documented below - Constitutional Denies body ache(s), Denies fatigue - Eyes Denies change in vision - ENT Denies bleeding gums - *Cardiovascular Reports chest pain, Reports chest pain at rest, Reports chest pain with activity - *Respiratory Reports shortness of breath - *Gastrointestinal Denies coffee ground vomit - *Genitourinary Denies urinary frequency - *Musculoskeletal Denies neck pain - Integumentary/Breasts Denies rash - *Neurologic Denies dizziness, Denies headache(s) - Psychiatric Denies anxiety - Endocrine Denies excessive sweating - Hematologic/Lymphatic Denies easy bruising - Allergic/Immunologic Denies itchy eyes Exam Vital signs and Labs for Last 24 Hours: Temp Pulse Resp BP Pulse Ox 97.8 F 48 L 18 130/71 98 07/03/20 08:00 07/03/20 12:20 07/03/20 12:20 07/03/20 12:20 07/03/20 12:20 Laboratory Results - last 24 hr 07/02/20 12:54: TSH 1.51 07/02/20 15:30: Chlamy pneumoniae PCR Not detected, Adenovirus (PCR) Not detected, B. pertussis DNA (PCR) Not detected, Coronavirus OC43 (PCR) Not detected, Coronavirus HKU1 (PCR) Not detected, Coronavirus 229E (PCR) Not detected, SARS-CoV-2 (PCR) Not detected, Coronavirus NL63 (PCR) Not detected, Human Metapneumovir PCR Not detected, Influenza A (H1) PCR Not detected, Influ A (H1N1/09) PCR Not detected, Influenza A (H3) PCR Not detected, Influenza Type A (PCR) Not detected, Influenza Type B (PCR) Not detected, M. pneumoniae (PCR) Not detected, Parainfluenza 1 (PCR) Not detected, Parainfluenza 2 (PCR) Not detected, Parainfluenza 3 (PCR) Not detected, Parainfluenza 4 (PCR) Not detected, RSV (PCR) Not detected, Entero/Rhino (PCR) Not detected 07/02/20 15:43: Troponin I < 0.01 07/02/20 19:00: Troponin I < 0.01 07/03/20 07:39: WBC 9.5, RBC 4.62, Hgb 15.2, Hct 45.0, MCV 97.4 H, MCH 32.9 H, MCHC 33.8, RDW 13.2, Plt Count 278, MPV 7.6, Neut
== END 2020-07-03 18:38 | disposition home or self-care (01) ==
LOC: ER 12:51 → 2ND 19:06
PROVIDERS: Internal Medicine; Admitting Provider Family Medicine; Emergency Provider Emergency Medicine; PCP Emergency Medicine; Visit Provider Family Medicine
DX: I25.110 Atherosclerotic heart disease of native coronary artery with unstable angina pectoris (principal); T82.855A Stenosis of coronary artery stent, initial encounter; Y83.1 Surgical operation with implant of artificial internal device as the cause of abnormal reaction of the patient, or of later complication, without mention of misadventure at the time of the procedure; Z82.49 Family history of ischemic heart disease and other diseases of the circulatory system; I10 Essential (primary) hypertension; F17.200 Nicotine dependence, unspecified, uncomplicated; J44.9 Chronic obstructive pulmonary disease, unspecified; Z88.0 Allergy status to penicillin; Z88.8 Allergy status to other drugs, medicaments and biological substances; Z79.899 Other long term (current) drug therapy
CPT/HCPCS: 36415; 71045; 71275; 80048; 80061; 83036; 83735; 84100; 84443; 84484; 85025; 85610; 85730; 87581; 87633; 87798; 93005; 93458; 96375; 96376; 99152; 99284; C1725; C1769; G0378; J1644; Q9967

== ENCOUNTER → 2020-08-17 17:01 | Outpatient (CLI) | payer OTHER, SELFPAY ==
[2020-08-17 18:42] LABS: Amphetamine/Metha Screen,Urine Negative ng/ml (<1000)
[2020-08-17 18:43] LABS: Barbiturates Screen,Urine Negative ng/ml (<200); Benzodiazepines Screen,Urine Negative ng/ml (<200)
[2020-08-17 18:44] LABS: Cannabinoid Screen,Urine Negative ng/ml (<50); Cocaine Screen,Urine Negative ng/ml (<300)
[2020-08-17 18:45] LABS: Methadone Screen,Urine Negative ng/ml (<300)
[2020-08-17 18:46] LABS: Opiate Screen,Urine Negative ng/ml (<300); Phencyclidine Screen,Urine Negative ng/ml (<25)
== END ==
PROVIDERS: Visit Provider Emergency Medicine
DX: Z79.899 Other long term (current) drug therapy (principal)
CPT/HCPCS: 80305

== ENCOUNTER 2020-10-06 10:58 | Emergency (ER) | payer OTHER, SELFPAY ==
[2020-10-06 10:59] VITALS: BP 127/40; PULSE 73; RESP 22; TEMP 36.7; O2SAT 99; BMI 23.3
--- NOTE | 2020-10-06 11:04 | HMH.EDGENADL ---
ED Disposition Clinical Impression: Lesion of left [place] kidney Hematuria Qualifiers: Hematuria type: unspecified type Qualified Code(s): R31.9 - Hematuria, unspecified Disposition: Home, Self-Care Condition on Discharge: Good Instructions: DI for Acute Pain -- Adult Additional Instructions: Call PCP office today for follow-up appointment. Return to the emergency department for fever, seeing blood when you pee, worsening pain. Referrals: Kumar Fagan MD [Primary Care Provider] - (Call today for an appointment) Time of Disposition: 13:28 - Critical Care Critical Care Time: No Attestation: On , the high probability of a clinically significant, sudden or life threatening deterioration of the following system(s) required my full and direct attention, intervention and personal management. The time I documented below is in addition to time spent performing reported procedures but includes the following listed in this critical care notation. Medical Decision Making - Anjel Inquiry Pt receiving controlled substance: No Vital Signs: 10/06/20 10:59 Temperature 98.1 F Temperature Source Oral Pulse Rate [Left] 73 Respiratory Rate 22 Blood Pressure [Right Arm] 127/40 L Blood Pressure Mean [Right Arm] 69 Blood Pressure Source [Right Arm] Automatic Cuff Blood Pressure Position [Right Arm] Sitting 02 Sat by Pulse Oximetry 99 Oxygen Delivery Method Room Air - Lab Data Lab results reviewed: Yes: I reviewed the patient's lab results. Lab Results 10/06/20 12:54: Urine Color Yellow, Urine Appearance Clear, Urine pH 5.0, Ur Specific [place] 1.015, Urine Protein Negative, Urine Glucose (UA) Negative, Urine Ketones Negative, Urine Blood 2+, Urine Nitrate Negative, Urine Bilirubin Negative, Urine Urobilinogen 0.2, Ur Leukocyte Esterase Negative Orders (Tests/Meds): ORDERS Category Date Time Status UA [Urinalysis and Microscopic] Stat Lab 10/06/20 12:54 Results - CT Data CT Scan: Abdomen, Pelvis Time Received: 13:00 Preliminary Findings: Abnormal Findings Narrative: 12mm L renal hyperdense lesion Medical Decision Narrative: 60yo M evaluated for left flank pain. Differential diagnosis includes but not limited to: Kidney stone, pneumonia, PE, pancreatitis, musculoskeletal strain, renal mass. Patient is in no acute distress on this evaluation. He repeatedly states is the worst pain is ever felt in his life that he is calm, collected. His vital signs are normal. There is no diaphoresis or pressured speech. He moves without any difficulty. Patient sent for CT of the abdomen pelvis without contrast to evaluate for kidney stone. UA also ordered. CT scan demonstrates 12 mm hyperdense lesion of the left kidney. Urinalysis remarkable only for 2+ blood. Case discussed with patient. Informed he would need further work-up outpatient. Patient voiced understanding. He was encouraged to follow-up with his PCP office today so as to establish close follow-up. General Adult HPI - General Stated complaint: lower back pain Time Seen by Provider: 10/06/20 11:04 Mode of Arrival: Ambulatory - History of Present Illness HPI narrative: 60yo M presents the emergency department with left flank pain. Patient reports symptoms began last night. He denies any shortness of breath, chest pain. He denies any dysuria or frequency. Patient denies trauma or fall. No history of kidney stone. Nothing improves his symptoms. Activity seems to make it worse. - Related Data Home Medications Medication Instructions Recorded Confirmed aspirin 81 mg chewable tablet 81 mg PO DAILY tab 10/01/18 10/06/20 Atorvastatin Calcium [Lipitor 20mg 20 mg PO HS 07/02/20 10/06/20 Tab] Nitroglycerin 0.4 mg SUBLINGUAL Q5M PRN 07/02/20 10/06/20 Pantoprazole Sodium 40 mg PO DAILY 07/03/20 10/06/20 Nicotine [Nicotine Patch 21 mg TD DAILY 10/06/20 10/06/20 21mg/24hrs] Previous Rx's Medication Instructions Record
--- NOTE | 2020-10-06 11:20 | CT_ITS ---
PROCEDURE INFORMATION: Exam: CT Abdomen And Pelvis Without Contrast Exam date and time: 10/06/2020 11:20 AM Age: 60 years old Clinical indication: Abdominal pain; Tenderness; Left; Patient HX: Lt side flank pain; Additional info: L flank pain TECHNIQUE: Imaging protocol: Computed tomography of the abdomen and pelvis without contrast. Radiation optimization: All CT scans at this facility use at least one of these dose optimization techniques: automated exposure control; mA and/or kV adjustment per patient size (includes targeted exams where dose is matched to clinical indication); or iterative reconstruction. COMPARISON: ABDPELW CT abdomen pelvis w con 09/01/2018 1:02 AM FINDINGS: Detailed evaluation of the abdominal and pelvic viscera is somewhat limited in the absence of intravenous contrast. Inferior thorax: Hyperinflation, interstitial prominence and chronic granulomatous disease. Trace left-sided airspace disease and small left pleural effusion. Coronary artery calcification. Liver: No focal hepatic mass. Gallbladder and bile ducts: Contracted gallbladder. No biliary ductal dilatation. Pancreas: No pancreatic mass or ductal dilatation. Spleen: No splenomegaly. Adrenal glands: Unremarkable adrenals. Kidneys and ureters: Poorly characterized 12 mm hyperdense nodular lesion arising from the posterior left kidney and 5 mm hyperdense nodular lesion in the anterior right kidney. No urolithiasis or hydronephrosis. Stomach and bowel: Wall thickening in the nondistended stomach. No significant small bowel dilatation. Prominent stool. Appendix: No acute appendicitis. Intraperitoneal space: No significant free fluid. Vasculature: Vascular calcification. No abdominal aortic aneurysm. Lymph nodes: Subcentimeter lymph nodes. Urinary bladder: Nondistended bladder. Reproductive: Prostate calcifications. Bones/joints: Degenerative change and disc bulging. IMPRESSION: 1. Poorly characterized 12 mm hyperdense nodular lesion arising from the posterior left kidney and 5 mm hyperdense nodular lesion in the anterior right kidney. 2. Wall thickening in the nondistended stomach. 3. Additional findings as described above. COMMENTS: Consistent with the [employer]'s Incidental Findings Committee white paper (J Am Masoud Radiol 2018): Any incidental renal lesion less than 1 cm or classified as too small to characterize, or any incidental cystic renal lesion characterized as simple-appearing, is likely benign. No follow-up imaging is recommended for these lesions per consensus recommendations based on imaging criteria.
[2020-10-06 13:00] LABS: Microscopic, Urine URINE MICROSCOPIC (MICROSCOPIC)
[2020-10-06 13:02] LABS: Appearance,Urine CLEAR (Clear); Bilirubin,Urine Negative (Negative); Blood, Urine 2+ (Negative); Color,Urine YELLOW (Yellow); Glucose,Urine (UA) Negative (Negative); Ketones,Urine Negative (Negative); Leukocyte Esterase,Urine Negative (Negative); Nitrate,Urine Negative (Negative); Protein,Urine Negative (Negative); Specific Gravity, Urine 1.015 (1.005-1.030); Urobilinogen,Urine 0.2 EU/dl (0.2)
[2020-10-06 13:29] LABS: Trichomonas,Urine Occasional /lpf
[2020-10-06 13:30] LABS: Squamous Epithelial Cell,Urine Occasional #/hpf (0-5); WBC,Urine Occasional #/hpf (0-3)
[2020-10-06 13:33] VITALS: BP 127/78; PULSE 49; RESP 16; TEMP 36.7; O2SAT 97
== END 2020-10-06 13:35 | disposition home or self-care (01) ==
PROVIDERS: Emergency Provider Family Medicine; PCP Emergency Medicine
DX: N28.9 Disorder of kidney and ureter, unspecified (principal); R31.9 Hematuria, unspecified; R10.12 Left upper quadrant pain; J44.9 Chronic obstructive pulmonary disease, unspecified; K21.9 Gastro-esophageal reflux disease without esophagitis; E78.5 Hyperlipidemia, unspecified; F41.8 Other specified anxiety disorders; I10 Essential (primary) hypertension; F17.210 Nicotine dependence, cigarettes, uncomplicated; Z88.0 Allergy status to penicillin; Z88.8 Allergy status to other drugs, medicaments and biological substances; Z79.899 Other long term (current) drug therapy
CPT/HCPCS: 74176; 81001; 99282

== ENCOUNTER → 2020-11-10 14:39 | Outpatient (CLI) | payer OTHER, SELFPAY ==
[2020-11-10 16:24] LABS: Amphetamine/Metha Screen,Urine Negative ng/ml (<1000); Barbiturates Screen,Urine Negative ng/ml (<200)
[2020-11-10 16:25] LABS: Benzodiazepines Screen,Urine Negative ng/ml (<200)
[2020-11-10 16:26] LABS: Cannabinoid Screen,Urine Negative ng/ml (<50); Cocaine Screen,Urine Negative ng/ml (<300)
[2020-11-10 16:27] LABS: Methadone Screen,Urine Negative ng/ml (<300)
[2020-11-10 16:28] LABS: Opiate Screen,Urine Negative ng/ml (<300); Phencyclidine Screen,Urine Negative ng/ml (<25)
== END ==
PROVIDERS: Visit Provider Emergency Medicine
DX: Z79.899 Other long term (current) drug therapy (principal)
CPT/HCPCS: 80305

== ENCOUNTER 2020-12-03 03:27 | Emergency (ER) | payer OTHER, SELFPAY ==
--- NOTE | 2020-12-03 03:24 | ECG_ITS ---
APPROVED REPORT Exam: Resting ECG HR:61 bpm ECG Measurements Heart Rate 61 AXES WY 158 P 68 QRSd 82 QRS 72 QT 408 T 50 QTc 410 Conclusion Normal sinus rhythm Normal ECG Electronically signed by : Brody Andrade MD 12/04/2020 19:57:33
[2020-12-03 03:27] VITALS: BP 159/93; PULSE 63; RESP 21; TEMP 36.8; O2SAT 99; BMI 23.5
[2020-12-03 03:28] VITALS: BMI 23.5
--- NOTE | 2020-12-03 03:29 | XR_ITS ---
PROCEDURE INFORMATION: Exam: XR Chest Exam date and time: 12/03/2020 3:29 AM Age: 60 years old Clinical indication: Angina pectoris; Patient HX: Chest pain, SOA; Additional info: Cp, SOA TECHNIQUE: Imaging protocol: XR of the chest. Views: 2 views. COMPARISON: CR XR CHEST PORTABLE 07/02/2020 12:54 PM FINDINGS: Lungs: Unremarkable. No consolidation. Pleural spaces: Unremarkable. No pleural effusion. No pneumothorax. Heart/Mediastinum: Unremarkable. No cardiomegaly. Bones/joints: Unremarkable. IMPRESSION: No acute findings.
[2020-12-03 03:44] LABS: Coronavirus 19, PCR Not Detected (NotDetected); Influenza A, PCR Not Detected (NotDetected); Influenza B, PCR Not Detected (NotDetected)
--- NOTE | 2020-12-03 03:44 | PC.NURSE ---
pt back from xray
[2020-12-03 03:47] LABS: Basophils # 0.1 K/mm3 (0-0.2); Basophils % 1.3 % (0.1-2.0); Eosinophils # 0.4 K/mm3 (0.0-0.4); Eosinophils % 4.3 % (0.1-12.0); Hemoglobin 15.4 g/dL (14.1-18.0); Lymphocytes # 3.5 K/mm3 (0.7-4.5); Lymphocytes % 34.8 % (10-50); Mean Corpuscular HGB Conc 33.4 g/dL (31.8-35.4); Mean Corpuscular Hemoglobin 33.8 pg (27.0-31.2); Mean Corpuscular Volume 101.1 fl (80-94); Mean Platelet Volume 7.9 fl (7.4-10.4); Monocytes # 0.5 K/mm3 (0.1-1.0); Monocytes % 5.3 % (1.7-9.3); Neutrophils # 5.5 K/mm3 (1.8-7.8); Neutrophils % 54.3 % (37.0-80.0); Platelet Count 302 K/mm3 (142-424); Red Blood Count 4.55 M/mm3 (4.60-6.20); Red Cell Distribution Width 13.5 % (11.5-17.5); White Blood Count 10.1 K/mm3 (4.8-10.8)
[2020-12-03 03:49] VITALS: BP 134/83; PULSE 62; RESP 21; O2SAT 98
[2020-12-03 03:55] LABS: Alanine Aminotransferase 14 U/L (12-78); Albumin Level 4.2 g/dl (3.5-5.0); Alkaline Phosphatase 82 U/L (38-126); Anion Gap 9.8 mEq/L (5-15); Aspartate Amino Transferase 31 U/L (17-59); Bilirubin,Direct 0.1 mg/dl (0.0-0.4); Bilirubin,Indirect 0.4 mg/dL (0.0-0.9); Bilirubin,Total 0.5 mg/dl (0.2-1.3); Bilirubin,Unconjugated 0.3 mg/dL (0.0-1.1); Blood Urea Nitrogen 16 mg/dl (9-20); Calcium 9.5 mg/dl (8.4-10.2); Carbon Dioxide 30 mmol/L (22.0-30.0); Chloride 107 mmol/L (98-107); Creatinine Clearance Estimated 84 mL/min (50-200); Estimated Glomerular Filt Rate 86 ml/min (>60); GFR (African American) 104 ML/MIN (>60); Glucose 100 mg/dl (74-100); Magnesium 1.9 mg/dl (1.6-2.3); Potassium 3.8 mmoL/L (3.5-5.1); Sodium 143 mmol/L (136-145); Total Protein,Serum 7.4 g/dl (6.3-8.2)
[2020-12-03 04:00] LABS: C-Reactive Protein 1.4 mg/L (0-4)
[2020-12-03 04:07] LABS: NT Pro Brain Natriuretic Pep. 72.2 pg/mL (0-125)
[2020-12-03 04:11] LABS: Procalcitonin 0.045 ng/mL (0.0-2.0); Troponin I < 0.01 ng/ml (0.00-0.034)
[2020-12-03 04:13] LABS: Erythrocyte Sedimentation Rate 17 mm/hr (0-20)
--- NOTE | 2020-12-03 05:54 | HMH.EDCP ---
ED Disposition Clinical Impression: Chest pain Qualifiers: Chest pain type: precordial pain Qualified Code(s): R07.2 - Precordial pain Disposition: Home, Self-Care Condition on Discharge: Good Instructions: DI for Atypical Chest Pain Additional Instructions: see card for follow up Referrals: Kumar Fagan MD [Primary Care Provider] - - Critical Care Critical Care Time: No Attestation: On 12/03/20, the high probability of a clinically significant, sudden or life threatening deterioration of the following system(s) required my full and direct attention, intervention and personal management. The time I documented below is in addition to time spent performing reported procedures but includes the following listed in this critical care notation. Medical Decision Making - Medical Records Medical records reviewed: Yes: I reviewed the patient's medical records. - Anjel Inquiry Pt receiving controlled substance: No Vital Signs: 12/03/20 03:27 12/03/20 03:49 Temperature 98.3 F Temperature Source Oral Pulse Rate 62 Pulse Rate [Right] 63 Respiratory Rate 21 21 Blood Pressure 134/83 Blood Pressure [Right Arm] 159/93 H Blood Pressure Mean 100 Blood Pressure Mean [Right Arm] 115 Blood Pressure Source [Right Arm] Automatic Cuff 02 Sat by Pulse Oximetry 99 98 Oxygen Delivery Method Room Air Room Air - Lab Data Lab results reviewed: Yes: I reviewed the patient's lab results. Lab Results 12/03/20 03:29: WBC 10.1, RBC 4.55 L, Hgb 15.4, Hct 46.0, MCV 101.1 H, MCH 33.8 H, MCHC 33.4, RDW 13.5, Plt Count 302, MPV 7.9, Neut % (Auto) 54.3, Lymph % (Auto) 34.8, [place] % (Auto) 5.3, Eos % (Auto) 4.3, Baso % (Auto) 1.3, Neut # (Auto) 5.5, Lymph # (Auto) 3.5, [place] # (Auto) 0.5, Eos # (Auto) 0.4, Baso # (Auto) 0.1, ESR 17 12/03/20 03:29: Sodium 143, Potassium 3.8, Chloride 107, Carbon Dioxide 30, Anion Gap 9.8, BUN 16, Creatinine 0.90, Estimated Creat Clear 84, Estimated GFR 86, Est GFR ( Amer) 104, Glucose 100, Calcium 9.5, Magnesium 1.9, Total Bilirubin 0.5, Direct Bilirubin 0.1, Conjugated Bilirubin 0.0, Indirect Bilirubin 0.4, Unconjugated Bilirubin 0.3, AST 31, ALT 14, Alkaline Phosphatase 82, Troponin I < 0.01, C-Reactive Protein 1.4, NT-Pro-B Natriuret Pep 72.2, Total Protein 7.4, Albumin 4.2, Procalcitonin 0.045 12/03/20 03:29: SARS-CoV-2 (PCR) Not detected, Influenza A Untype (PCR) Not detected, Influenza Type B (PCR) Not detected Result diagrams: 12/03/20 03:29 12/03/20 03:29 Orders (Tests/Meds): ED MEDICATIONS Generic Name Dose Route Start Last Admin Trade Name Freq PRN Reason Stop Dose Admin Sodium Chloride 1,000 mls @ 999 mls/hr 12/03/20 03:45 12/03/20 03:36 Sod Chlor 0.9% 1000ml Bag IV 12/03/20 04:45 999 mls/hr .Q1H1M CORRIE Administration Discontinued Medications Generic Name Dose Route Start Last Admin Trade Name Freq PRN Reason Stop Dose Admin Aspirin 324 mg 12/03/20 03:32 12/03/20 03:35 Aspirin 81mg Chewable Tablet PO 12/03/20 03:33 324 mg ONCE ONE Administration Morphine Sulfate 4 mg 12/03/20 03:55 12/03/20 03:56 Morphine 4mg/Ml Syringe IV 12/03/20 03:56 4 mg ONCE ONE Administration Nitroglycerin 0.4 mg 12/03/20 03:32 12/03/20 03:33 Nitroglycerin 0.4mg Sl Tablet SL 12/03/20 03:33 0.4 mg ONCE ONE Administration Nitroglycerin 1 gm 12/03/20 03:37 12/03/20 03:37 Nitroglycerin 1 Gm Ointment TD 12/03/20 03:38 1 gm ONCE ONE Administration Ondansetron HCl 4 mg 12/03/20 03:36 12/03/20 03:37 Ondansetron 4mg/2ml Vial IV 12/03/20 03:37 4 mg ONCE ONE Administration ORDERS Category Date Time Status Troponin I Q3H Lab 12/03/20 06:30 Ordered Troponin I Q3H Lab 12/03/20 09:30 Ordered Urinalysis and Microscopic Stat Lab 12/03/20 03:29 Ordered - Radiology Data #1 Image(s): Chest Image Reviewed: Yes I have reviewed radiologist's interpretation Preliminary Findings: Normal/NAD - ECG Data T
[2020-12-03 06:47] LABS: Troponin I < 0.01 ng/ml (0.00-0.034)
[2020-12-03 06:57] VITALS: BP 117/78; PULSE 56; RESP 20; TEMP 36.7; O2SAT 98
== END 2020-12-03 07:04 | disposition home or self-care (01) ==
PROVIDERS: Emergency Provider Emergency Medicine; PCP Emergency Medicine
DX: R07.2 Precordial pain (principal); R06.02 Shortness of breath; R05 Cough; R11.0 Nausea; R42 Dizziness and giddiness; I10 Essential (primary) hypertension; Z72.0 Tobacco use; Z79.82 Long term (current) use of aspirin; Z79.899 Other long term (current) drug therapy; Z88.0 Allergy status to penicillin; Z88.8 Allergy status to other drugs, medicaments and biological substances; J44.9 Chronic obstructive pulmonary disease, unspecified
CPT/HCPCS: 71046; 80048; 80076; 83735; 83880; 84145; 84484; 85025; 85651; 86140; 93005; 96365; 96375; 99283; C9803; J2405; U0003; U0005

== ENCOUNTER 2021-03-01 13:35 | Emergency (ER) | payer OTHER, SELFPAY ==
[2021-03-01 13:44] VITALS: BP 132/87; PULSE 81; RESP 18; TEMP 36.9; O2SAT 98; BMI 23.5
--- NOTE | 2021-03-01 13:52 | HMH.EDGENADL ---
ED Disposition Clinical Impression: COVID-19 Disposition: Home, Self-Care Condition on Discharge: Good Instructions: DI for COVID-19 (Suspected or Confirmed ) Additional Instructions: return tomorrow at 11am for antibody infusion Referrals: Kumar Fagan MD [Primary Care Provider] - Time of Disposition: 14:52 - Critical Care Critical Care Time: No Attestation: On 03/01/21, the high probability of a clinically significant, sudden or life threatening deterioration of the following system(s) required my full and direct attention, intervention and personal management. The time I documented below is in addition to time spent performing reported procedures but includes the following listed in this critical care notation. Medical Decision Making - Anjel Inquiry Pt receiving controlled substance: No Vital Signs: 03/01/21 13:44 Temperature 98.5 F Temperature Source Oral Pulse Rate [Radial] 81 Respiratory Rate 18 Blood Pressure [Right Arm] 132/87 Blood Pressure Mean [Right Arm] 102 Blood Pressure Position [Right Arm] Sitting 02 Sat by Pulse Oximetry 98 Oxygen Delivery Method Room Air - Lab Data Lab Results 03/01/21 13:55: SARS-CoV-2 (PCR) Detected A, Influenza A Untype (PCR) Not detected, Influenza Type B (PCR) Not detected General Adult HPI - General Chief complaint: Upper Respiratory Infection Stated complaint: fever, cough, body aches, congestion Time Seen by Provider: 03/01/21 13:52 Mode of Arrival: Ambulatory Limitations: No Limitations Description of Symptoms (Recalled from ER Triage Doc. by RN): to ed per pvt car with c/o generalized body aches, fatique, cough, congestion x 2-3 days. denies sob, nausea, vomiting or sick contacts. - History of Present Illness HPI narrative: prod cough green, mild body aches chills fever 2 days Onset (ago): day(s) Radiation: non-radiation Severity: mild Relieving factors: none Exacerbating factors: none Associated symptoms: denies other symptoms - Related Data Home Medications Medication Instructions Recorded Confirmed aspirin 81 mg chewable tablet 81 mg PO DAILY tab 10/01/18 02/12/21 Nitroglycerin 0.4 mg SUBLINGUAL Q5M PRN 07/02/20 02/12/21 Previous Rx's Medication Instructions Recorded prasugrel 10 mg tablet 10 mg PO DAILY #90 tab 04/29/20 isosorbide mononitrate 30 mg 30 mg PO DAILY #30 tab 12/03/20 tablet,extended release 24 hr ranolazine 500 mg tablet,extended 500 mg PO BID #60 tab 12/17/20 release,12 hr atorvastatin 20 mg tablet See Rx Instructions .ROUTE 01/21/21 .COMPLEX #30 tablet alprazolam 0.5 mg tablet 0.5 mg PO QID PRN #120 tab 02/02/21 clindamycin HCl 300 mg capsule 300 mg PO BID 10 Days #20 cap 02/02/21 ibuprofen 800 mg tablet 800 mg PO Q8H #45 tab 02/02/21 pantoprazole 40 mg tablet,delayed See Rx Instructions .ROUTE 03/01/21 release .COMPLEX #30 tablet Allergies Allergy/AdvReac Type Severity Reaction Status Date / Time Penicillins [PENICILLINS] Allergy Mild Verified 02/12/21 11:12 atorvastatin [From Lipitor] Allergy Verified 02/12/21 11:12 ticagrelor [From Brilinta] AdvReac Verified 02/12/21 11:12 [facility] History - Hepatitis A Screen Drug use history?: No High risk sexual behaviors?: No History of sexually transmitted infection?: No Currently employed?: No Childcare worker?: No Do you have indoor plumbing?: Yes Do you have electricity?: Yes Attestation statement:: This patient has been screened for Hepatitis A risk factors. Medical History: Reports:: Anxiety, Chronic Obstructive Pulmonary Disease (COPD), Coronary Artery Disease, Depression, Gastroesophageal Reflux Disease(GERD), Hyperlipidemia, Hypertension Denies:: Cancer, Diabetes Mellitus Type 1, Diabetes Mellitus Type 2, Internal Pacemaker, MRSA, Seizures Laterality Cases: Right: Other Other Surgeries: Yes: No Previous Surgery, Angiogram, Cardiac Catheterization, Coronary Stent, Other. No: Pacemaker Amputation: No Fractures: Yes (R tib/fib
[2021-03-01 14:02] LABS: Influenza A, PCR Not Detected (NotDetected); Influenza B, PCR Not Detected (NotDetected)
[2021-03-01 14:47] LABS: Coronavirus 19, PCR Detected (NotDetected)
[2021-03-01 15:17] VITALS: BP 122/74; PULSE 78; RESP 16; TEMP 36.6; O2SAT 98
== END 2021-03-01 15:19 | disposition home or self-care (01) ==
PROVIDERS: Emergency Provider Emergency Medicine; PCP Emergency Medicine
DX: U07.1 COVID-19 (principal); I25.10 Atherosclerotic heart disease of native coronary artery without angina pectoris; J44.9 Chronic obstructive pulmonary disease, unspecified; K21.9 Gastro-esophageal reflux disease without esophagitis; I10 Essential (primary) hypertension; E78.5 Hyperlipidemia, unspecified; F17.210 Nicotine dependence, cigarettes, uncomplicated
CPT/HCPCS: 99282; C9803; U0003; U0005

== ENCOUNTER → 2021-03-02 08:55 | Outpatient (CLI) | payer OTHER, SELFPAY ==
[2021-03-02] VITALS (7 sets, daily range): BP systolic 104–115; BP diastolic 61–69; PULSE 50–68; RESP 16–18; O2SAT 96–100
== END ==
PROVIDERS: Visit Provider Emergency Medicine
DX: U07.1 COVID-19 (principal); Z23 Encounter for immunization
CPT/HCPCS: 96365

== ENCOUNTER 2021-05-02 18:43 | Observation (INO) | payer OTHER, SELFPAY ==
[2021-05-02 18:44] VITALS: BP 139/83; PULSE 63; RESP 16; TEMP 36.8; O2SAT 98; BMI 24.1
--- NOTE | 2021-05-02 18:45 | ECG_ITS ---
APPROVED REPORT Exam: Resting ECG HR:58 bpm ECG Measurements Heart Rate 58 AXES DE 170 P 72 QRSd 91 QRS 74 QT 393 T 61 QTc 391 Conclusion SINUS BRADYCARDIA POSSIBLE RIGHT VENTRICULAR CONDUCTION DELAY [RSR (QR) IN V1/V2] BORDERLINE ECG UNCONFIRMED REPORT Electronically signed by : Brody Andrade MD 05/07/2021 16:16:27
[2021-05-02 18:46] VITALS: BMI 24.1
--- NOTE | 2021-05-02 18:46 | XR_ITS ---
PROCEDURE INFORMATION: Exam: XR Chest Exam date and time: 05/02/2021 6:46 PM Age: 60 years old Clinical indication: Chest pressure and sternal or substernal pain; Patient HX: PT has had cardiac stents in past; Additional info: Chest pain TECHNIQUE: Imaging protocol: XR of the chest. Views: 1 view. COMPARISON: CR XR CHEST 2V 12/03/2020 3:35 AM FINDINGS: Lungs: Coarse interstitial lung markings likely chronic. Granulomatous changes. No consolidation. Pleural spaces: Unremarkable. No pleural effusion. No pneumothorax. Heart/Mediastinum: Unremarkable. No cardiomegaly. Bones/joints: Unremarkable. IMPRESSION: No acute findings.
--- NOTE | 2021-05-02 18:54 | PC.NURSE ---
Rad at bedside
[2021-05-02 19:00] VITALS: BP 133/86; RESP 16; O2SAT 100
[2021-05-02 19:03] LABS: Basophils # 0.1 K/mm3 (0-0.2); Basophils % 0.7 % (0.1-2.0); Eosinophils # 0.5 K/mm3 (0.0-0.4); Eosinophils % 6.4 % (0.1-12.0); Hematocrit 45.9 % (42.0-52.0); Hemoglobin 15.4 g/dL (14.1-18.0); Lymphocytes # 2.4 K/mm3 (0.7-4.5); Lymphocytes % 28.8 % (10-50); Mean Corpuscular HGB Conc 33.5 g/dL (31.8-35.4); Mean Corpuscular Hemoglobin 33.2 pg (27.0-31.2); Mean Corpuscular Volume 99.2 fl (80-94); Mean Platelet Volume 7.1 fl (7.4-10.4); Monocytes # 0.5 K/mm3 (0.1-1.0); Neutrophils # 4.9 K/mm3 (1.8-7.8); Platelet Count 273 K/mm3 (142-424); Red Blood Count 4.63 M/mm3 (4.60-6.20); Red Cell Distribution Width 12.7 % (11.5-17.5); White Blood Count 8.4 K/mm3 (4.8-10.8)
[2021-05-02 19:07] LABS: Anion Gap 10.8 mEq/L (5-15); Blood Urea Nitrogen 18 mg/dl (9-20); Calcium 9.2 mg/dl (8.4-10.2); Carbon Dioxide 28 mmol/L (22.0-30.0); Chloride 105 mmol/L (98-107); Creatinine Clearance Estimated 78 mL/min (50-200); Estimated Glomerular Filt Rate 76 ml/min (>60); GFR (African American) 92 ML/MIN (>60); Glucose 94 mg/dl (74-100); Potassium 3.8 mmoL/L (3.5-5.1); Sodium 140 mmol/L (136-145)
--- NOTE | 2021-05-02 19:10 | HMH.EDCP ---
ED Disposition Clinical Impression: Unstable angina Disposition: Admitted As Inpatient Condition on Discharge: Fair Referrals: Provider,Referral, [Primary Care Provider] - - Critical Care Critical Care Time: No Attestation: On 05/02/21, the high probability of a clinically significant, sudden or life threatening deterioration of the following system(s) required my full and direct attention, intervention and personal management. The time I documented below is in addition to time spent performing reported procedures but includes the following listed in this critical care notation. Medical Decision Making - Medical Records Medical records reviewed: Yes: I reviewed the patient's medical records. - Anjel Inquiry Pt receiving controlled substance: No Vital Signs: 05/02/21 18:44 Temperature 98.2 F Temperature Source Oral Pulse Rate [Radial] 63 Respiratory Rate 16 Blood Pressure [Right Arm] 139/83 Blood Pressure Mean [Right Arm] 101 Blood Pressure Position [Right Arm] Sitting 02 Sat by Pulse Oximetry 98 Oxygen Delivery Method Room Air - Lab Data Lab Results 05/02/21 18:47: WBC 8.4, RBC 4.63, Hgb 15.4, Hct 45.9, MCV 99.2 H, MCH 33.2 H, MCHC 33.5, RDW 12.7, Plt Count 273, MPV 7.1 L, Neut % (Auto) 58.0, Lymph % (Auto) 28.8, Frontier % (Auto) 6.0, Eos % (Auto) 6.4, Baso % (Auto) 0.7, Neut # (Auto) 4.9, Lymph # (Auto) 2.4, Frontier # (Auto) 0.5, Eos # (Auto) 0.5 H, Baso # (Auto) 0.1 05/02/21 18:47: Sodium 140, Potassium 3.8, Chloride 105, Carbon Dioxide 28, Anion Gap 10.8, BUN 18, Creatinine 1.00, Estimated Creat Clear 78, Estimated GFR 76, Est GFR ( Amer) 92, Glucose 94, Calcium 9.2, Troponin I < 0.01 05/02/21 18:47: PT 11.1, INR 0.98, APTT 26.4 05/02/21 18:47: NT-Pro-B Natriuret Pep 49.6 Result diagrams: 05/02/21 18:47 05/02/21 18:47 Orders (Tests/Meds): ED MEDICATIONS Generic Name Dose Route Start Last Admin Trade Name Daq PRN Reason Stop Dose Admin Sodium Chloride 10 ml 05/02/21 18:46 Sodium Chloride 0.9% 10ml Flush Syringe IV 06/01/21 18:45 NEEDED PRN Maintain IV Site Discontinued Medications Generic Name Dose Route Start Last Admin Trade Name Daq PRN Reason Stop Dose Admin Aspirin 243 mg 05/02/21 18:47 05/02/21 18:52 Aspirin 81mg Chewable Tablet PO 05/02/21 18:48 243 mg ONCE ONE Administration Nitroglycerin 0.4 mg 05/02/21 19:01 05/02/21 19:14 Nitroglycerin 0.4mg Sl Tablet SL 05/02/21 19:02 0.4 mg ONCE ONE Administration ORDERS Category Date Time Status Rapid PCR Covid and Flu A/B Stat Lab 05/02/21 19:01 Ordered Troponin I Q3H Lab 05/02/21 22:00 Ordered Troponin I Q3H Lab 05/03/21 01:00 Ordered - Radiology Data #1 Image(s): Chest Image Reviewed: Yes I reviewed the patient's radiology results, Yes I reviewed the patient's radiology image, Yes I have reviewed radiologist's interpretation Preliminary Findings: Normal/NAD - ECG Data Tracing #1 I reviewed this ECG and interpreted as documented below: Bradycardic rate of 50 bpm, WV interval 170 ms, normal QTC. Sinus bradycardia with nonspecific changes. ECG initial impression date: 05/02/21 ECG initial impression time: 18:43 - Reevaluation(s) Time: 19:29 Reevaluation #1: On reevaluation, the patient continues to endorse pain. Initial laboratory studies unremarkable. EKG does not show any significant abnormalities. Patient will be admitted to hospital for further evaluation and treatment. Medical Decision Narrative: 60-year-old male presented to the emergency department with some chest discomfort. Patient with longstanding history of coronary artery disease. Well-known to cardiology at our facility. Patient had a stent revision a few months ago. Concern for acute coronary syndrome in the patient. We did administer aspirin and nitroglycerin. Work-up initiated. Chest Pain HPI - General Chief Complaint: Chest Pain Stated Complaint: chest pressure Time
[2021-05-02 19:15] LABS: Activated Partial Thrombo Time 26.4 seconds (22.8-30.6); INR 0.98 (0.9-1.1); Prothrombin Time 11.1 seconds (10.1-12.5)
[2021-05-02 19:20] LABS: NT Pro Brain Natriuretic Pep. 49.6 pg/mL (0-125)
[2021-05-02 19:22] LABS: Troponin I < 0.01 ng/ml (0.00-0.034)
[2021-05-02 19:31] VITALS: BP 119/81; RESP 24; O2SAT 97
[2021-05-02 19:35] LABS: Coronavirus 19, PCR Not Detected (NotDetected); Influenza A, PCR Not Detected (NotDetected); Influenza B, PCR Not Detected (NotDetected)
[2021-05-02 20:09] VITALS: BP 136/69; PULSE 52; RESP 19; TEMP 36.6; O2SAT 98; BMI 24.0
[2021-05-02 21:18] VITALS: BP 131/76; PULSE 51; RESP 12; TEMP 37.2; O2SAT 97
--- NOTE | 2021-05-02 21:50 | PC.NURSE ---
PT ARRIVED TO FLOOR VIA W/C FROM ED W/STAFF @ [id number]
[2021-05-02 22:00] VITALS: PULSE 55
--- NOTE | 2021-05-02 22:02 | PC.NURSE ---
pt had raymundo upon arrival, $1320.00 in raymundo was counted and verified with INA Lott Rn and taken to steward/stewardess banquet lock box and locked up
[2021-05-02 22:50] LABS: Troponin I < 0.01 ng/ml (0.00-0.034)
[2021-05-03] VITALS (9 sets, daily range): BP systolic 106–136; BP diastolic 62–70; PULSE 45–57; RESP 16–20; TEMP 36.4–36.6; O2SAT 95–100
--- NOTE | 2021-05-03 | IR_ITS ---
APPROVED REPORT Patient Location: Inpatient PROCEDURES Left heart catheterization Left ventriculogram Selective coronary angiogram INDICATION Known coronary artery disease, Acute coronary syndrome/unstable angina Informed consent was obtained prior to the procedure. COMPLICATIONS NONE Estimated Blood Loss: LESS THAN 10 ML TECHNIQUE One percent lidocaine used to anesthetize the right anterior aspect of the wrist. The right radial artery was accessed via the Seldinger technique. A 6 Tristanian sheath was placed in the right radial artery. 2.5 mg of verapamil, 800 mcg of nitroglycerin, 1mg Lidocaine and 5000 U Heparin were given through the arterial sheath. The papa catheter was also used to perform left heart catheterization, left ventriculogram and selective coronary angiogram. At the end of the procedure the sheath was removed good hemostasis was achieved using Traclet band, patient was transferred to the postop holding area in stable condition. ANGIOGRAPHIC RESULTS The left main artery Normal The left anterior descending artery Has a stent in the proximal segment which is widely patent with minimal in-stent restenosis. Initially KARLENE II flow was present however after subsequent injections KARLENE-3 flow was present The circumflex artery Nondominant with mild proximal 10 to 20% stenosis in diffuse mild luminal irregularities The right coronary artery Is a large dominant vessel with a stent in the proximal segment which has mild in-stent restenosis. The remaining vessel has 10 to 20% stenoses. A large posterior descending artery has a proximal 30% concentric stenosis in the mid vessel 30% concentric stenosis. A large posterior lateral branch has mild luminal irregularities. Initially KARLENE II flow was present however with subsequent injections KARLENE-3 flow was present The CALLEJAS ventriculogram reveals Normal 65% The left ventricular end-diastolic pressure Less than 10 mmHg IMPRESSION Coronary disease as described above most notably with widely patent stents and mild nonflow limiting macrovascular disease Initial KARLENE II flow down the LAD and dominant right coronary artery all consistent with endothelial dysfunction which improved with subsequent injections which is anticipated due to the vasodilatory properties of contrast Normal ejection fraction Normal left ventricular end-diastolic pressure PLAN 1. Treatment of endothelial dysfunction 2. Absolute tobacco cessation which accounts for patient's endothelial dysfunction and ongoing angina pectoris 3. Aggressive risk factor modification Electronically signed by : Jad Montanez MD 05/03/2021 14:43:06
[2021-05-03 01:40] LABS: Troponin I < 0.01 ng/ml (0.00-0.034)
--- NOTE | 2021-05-03 07:19 | HMH.PHAVTE ---
[facility] Pharmacy VTE Monitoring - Patient Demographics Admission date: 05/02/21 Report Date: 05/03/21 Time: 07:19 Allergies/Adverse Reactions: Patient Allergies Penicillins [PENICILLINS] Allergy (Mild, Verified 04/29/21 11:01) atorvastatin [From Lipitor] Allergy (Verified 04/29/21 11:01) ticagrelor [From Brilinta] Adverse Reaction (Verified 04/29/21 11:01) Height: 1.7 m Weight: 69.626 kg Patient Problems: Current Active Problems Unstable angina (Acute) - VTE Risk Labs: VTE Related Lab Results Hgb 15.4 g/dL (14.1-18.0) 05/02/21 18:47 Hct 45.9 % (42.0-52.0) 05/02/21 18:47 Plt Count 273 K/mm3 (142-424) 05/02/21 18:47 PT 11.1 seconds (10.1-12.5) 05/02/21 18:47 INR 0.98 (0.9-1.1) 05/02/21 18:47 APTT 26.4 seconds (22.8-30.6) 05/02/21 18:47 BUN 18 mg/dl (9-20) 05/02/21 18:47 Creatinine 1.00 mg/dl (0.66-1.25) 05/02/21 18:47 Estimated Creat Clear 78 mL/min (50-200) 05/02/21 18:47 Was VTE Risk Assessment Performed: Yes VTE Score: 2 VTE Risk Level: Low Risk - Prophylaxis VTE Prophylaxis Ordered?: Yes Types of VTE Prophylaxis: TEDS Knee High, Pharmacological Location of Applied Device: Bilateral Lower Extremeties Pharmacologic Type: Enoxaparin
[2021-05-03 07:31] LABS: Basophils # 0.1 K/mm3 (0-0.2); Basophils % 0.9 % (0.1-2.0); Eosinophils # 0.6 K/mm3 (0.0-0.4); Eosinophils % 7.2 % (0.1-12.0); Hematocrit 46.5 % (42.0-52.0); Hemoglobin 15.6 g/dL (14.1-18.0); Lymphocytes # 2.9 K/mm3 (0.7-4.5); Lymphocytes % 35.5 % (10-50); Mean Corpuscular HGB Conc 33.5 g/dL (31.8-35.4); Mean Corpuscular Hemoglobin 33.7 pg (27.0-31.2); Mean Corpuscular Volume 100.5 fl (80-94); Mean Platelet Volume 7.3 fl (7.4-10.4); Monocytes # 0.5 K/mm3 (0.1-1.0); Monocytes % 6.2 % (1.7-9.3); Neutrophils # 4.2 K/mm3 (1.8-7.8); Neutrophils % 50.3 % (37.0-80.0); Platelet Count 285 K/mm3 (142-424); Red Blood Count 4.62 M/mm3 (4.60-6.20); Red Cell Distribution Width 12.8 % (11.5-17.5); White Blood Count 8.3 K/mm3 (4.8-10.8)
[2021-05-03 07:34] LABS: Chloride 103 mmol/L (98-107); Potassium 4.4 mmoL/L (3.5-5.1); Sodium 137 mmol/L (136-145)
[2021-05-03 07:37] LABS: Anion Gap 9.4 mEq/L (5-15); Blood Urea Nitrogen 15 mg/dl (9-20); Carbon Dioxide 29 mmol/L (22.0-30.0); Creatinine Clearance Estimated 77 mL/min (50-200); Estimated Glomerular Filt Rate 76 ml/min (>60); GFR (African American) 92 ML/MIN (>60); Glucose 84 mg/dl (74-100)
--- NOTE | 2021-05-03 08:59 | HMH.PHAINT ---
Home med rec complete
--- NOTE | 2021-05-03 12:00 | HMH.CNCARD ---
History of Present Illness Consult date: 05/03/21 Requesting physician: Kumar Fagan Consult reason: chest pain Chief complaint: chest pain History of present illness: This is a 60-year-old white gentleman who presented to the emergency department with chest pain. He states that his chest pain started approximately 2 weeks ago and has been getting progressively worse. He is now complaining of crushing substernal chest pain that radiates to the left side of his jaw. He states that the crushing pain started about 2 days ago and has not stopped. He states that this is constant. 9 out of 10 in intensity. He states that it is associated with shortness of breath and nausea. He denies any diaphoresis or vomiting. The patient states that his symptoms are worse with exertion. It does ease up with rest but does not completely resolve. He has been getting morphine here at the hospital which he states takes the edge off of the pain but does not resolve his pain. He states that he feels worse than he did now than when he needed stents in the past. He denies any fever, chills, diarrhea, PND or orthopnea. He denies any lower extremity edema. [facility] History I have reviewed the patient's past medical history: Yes Medical History: Reports:: Anxiety, Atherosclerotic Heart Disease, Chronic Obstructive Pulmonary Disease (COPD), Coronary Artery Disease, Depression, Gastroesophageal Reflux Disease(GERD), Hyperlipidemia, Hypertension Denies:: Cancer, Diabetes Mellitus Type 1, Diabetes Mellitus Type 2, Internal Pacemaker, MRSA, Seizures *Have you ever received a pneumonia vaccine?: No *Have you received a flu vaccine this season?: No Laterality Cases: Right: Other Other Surgeries: Yes: No Previous Surgery, Angiogram, Cardiac Catheterization, Coronary Stent, Other. No: Pacemaker Amputation: No Fractures: Yes (R tib/fib fx repair) - *Social History Last grade of school completed: 11th or 12th Smoking Status: Current every day smoker Tobacco Type: cigarettes # Packs/Day (cigarettes): 0 Alcohol Intake: never Alcohol Intake Frequency:: other Substance Use Type: denies use *Occupational Status:: employed Housing: house Household Members: family *Travel in the last 8 weeks: None - Psychiatric History Pschychiatric History:: Reports:: Anxiety, Depression Family Hx:: Coronary Artery Disease, Heart Attack, Hyperlipidemia, Hypertension Meds Home Medications Medication Instructions Recorded Confirmed Type aspirin 81 mg chewable tablet 81 mg PO DAILY tab 10/01/18 05/02/21 History Nitroglycerin 0.4 mg SUBLINGUAL Q5M PRN 07/02/20 05/02/21 History prasugrel 10 mg tablet 10 mg PO DAILY #90 tab 04/22/21 05/02/21 Rx alprazolam 0.5 mg tablet 0.5 mg PO QID PRN #120 tab 04/29/21 05/02/21 Rx Pantoprazole Sodium 40 mg PO DAILY 05/02/21 05/03/21 History Atorvastatin Calcium [Lipitor 20mg 20 mg PO DAILY 05/03/21 05/03/21 History Tab] Allergies Allergy/AdvReac Type Severity Reaction Status Date / Time Penicillins [PENICILLINS] Allergy Mild Verified 04/29/21 11:01 atorvastatin [From Lipitor] Allergy Verified 04/29/21 11:01 ticagrelor [From Brilinta] AdvReac Verified 04/29/21 11:01 Exam Vital signs and Labs for Last 24 Hours: Temp Pulse Resp BP Pulse Ox 97.6 F 53 L 16 124/64 99 05/03/21 08:00 05/03/21 08:00 05/03/21 08:00 05/03/21 08:00 05/03/21 08:00 Laboratory Results - last 24 hr 05/02/21 18:47: WBC 8.4, RBC 4.63, Hgb 15.4, Hct 45.9, MCV 99.2 H, MCH 33.2 H, MCHC 33.5, RDW 12.7, Plt Count 273, MPV 7.1 L, Neut % (Auto) 58.0, Lymph % (Auto) 28.8, Tate % (Auto) 6.0, Eos % (Auto) 6.4, Baso % (Auto) 0.7, Neut # (Auto) 4.9, Lymph # (Auto) 2.4, Tate # (Auto) 0.5, Eos # (Auto) 0.5 H, Baso # (Auto) 0.1 05/02/21 18:47: Sodium 140, Potassium 3.8, Chloride 105, Carbon Dioxide 28, Anion Gap 10.8, BUN 18, Creatinine 1.00, Estimated Creat Clear 78, Estimated GFR 76, Est GFR ( Amer) 92, Glucose 94, Calcium 9.2, Troponin I < 0.01 05/02/21 18
--- NOTE | 2021-05-03 16:06 | HMH.HPDC ---
General - General Admission date:: 05/02/21 Discharge date: 05/03/21 *Admission Date: 05/02/21 *Chief complaint: chest pain *History of present illness: 60-year-old white gentleman who presented to the emergency department with chest pain. He states that his chest pain started approximately 2 weeks ago and has been getting progressively worse. He is now complaining of crushing substernal chest pain that radiates to the left side of his jaw. He states that the crushing pain started about 2 days ago and has not stopped. He states that this is constant. 9 out of 10 in intensity. He states that it is associated with shortness of breath and nausea. He denies any diaphoresis or vomiting. The patient states that his symptoms are worse with exertion. It does ease up with rest but does not completely resolve. He has been getting morphine here at the hospital which he states takes the edge off of the pain but does not resolve his pain. He states that he feels worse than he did now than when he needed stents in the past. He denies any fever, chills, diarrhea, PND or orthopnea. He denies any lower extremity edema. [facility] History I have reviewed the patient's past medical history: Yes Medical History: Reports:: Anxiety, Atherosclerotic Heart Disease, Chronic Obstructive Pulmonary Disease (COPD), Coronary Artery Disease, Depression, Gastroesophageal Reflux Disease(GERD), Hyperlipidemia, Hypertension Denies:: Cancer, Diabetes Mellitus Type 1, Diabetes Mellitus Type 2, Internal Pacemaker, MRSA, Seizures *Have you ever received a pneumonia vaccine?: No *Have you received a flu vaccine this season?: No Laterality Cases: Right: Other Other Surgeries: Yes: No Previous Surgery, Angiogram, Cardiac Catheterization, Coronary Stent, Other. No: Pacemaker Amputation: No Fractures: Yes (R tib/fib fx repair) - *Social History Last grade of school completed: 11th or 12th Smoking Status: Current every day smoker Tobacco Type: cigarettes # Packs/Day (cigarettes): 0 Alcohol Intake: never Alcohol Intake Frequency:: other Substance Use Type: denies use *Occupational Status:: employed Housing: house Household Members: family *Travel in the last 8 weeks: None - Psychiatric History Pschychiatric History:: Reports:: Anxiety, Depression Family Hx:: Coronary Artery Disease, Heart Attack, Hyperlipidemia, Hypertension Review of Systems - Review of Systems Review of systems:: pertinent systems reviewed and negative unless documented below - Constitutional Denies body ache(s) - Eyes Denies blurry vision - ENT Denies bleeding gums - *Cardiovascular Reports chest pain, Reports chest pain at rest, Reports chest pain with activity - *Respiratory Denies change in phlegm color - *Gastrointestinal Denies abdominal pain - *Genitourinary Denies difficulty urinating - *Musculoskeletal Denies abnormal walking - Integumentary/Breasts Denies bleeding lesions - *Neurologic Denies headache(s) - Psychiatric Denies abnormal sleep pattern - Endocrine Denies excessive sweating - Hematologic/Lymphatic Denies easy bruising - Allergic/Immunologic Denies itchy eyes Exam Vital signs and Labs for Last 24 Hours: Temp Pulse Resp BP Pulse Ox 98 F 54 L 20 106/62 L 95 05/03/21 14:43 05/03/21 15:09 05/03/21 14:45 05/03/21 15:09 05/03/21 15:09 Laboratory Results - last 24 hr 05/02/21 18:47: WBC 8.4, RBC 4.63, Hgb 15.4, Hct 45.9, MCV 99.2 H, MCH 33.2 H, MCHC 33.5, RDW 12.7, Plt Count 273, MPV 7.1 L, Neut % (Auto) 58.0, Lymph % (Auto) 28.8, Howell % (Auto) 6.0, Eos % (Auto) 6.4, Baso % (Auto) 0.7, Neut # (Auto) 4.9, Lymph # (Auto) 2.4, Howell # (Auto) 0.5, Eos # (Auto) 0.5 H, Baso # (Auto) 0.1 05/02/21 18:47: Sodium 140, Potassium 3.8, Chloride 105, Carbon Dioxide 28, Anion Gap 10.8, BUN 18, Creatinine 1.00, Estimated Creat Clear 78, Estimated GFR 76, Est GFR ( Amer) 92, Glucose 94, Calcium 9.2, Troponin I < 0.01 05/02/21 18:47: PT 11
== END 2021-05-03 18:56 | disposition home or self-care (01) ==
LOC: ER 19:30 → 2ND 22:01
PROVIDERS: Internal Medicine; Admitting Provider Emergency Medicine; Emergency Provider Emergency Medicine; Visit Provider Emergency Medicine
DX: I25.110 Atherosclerotic heart disease of native coronary artery with unstable angina pectoris (principal); T82.855A Stenosis of coronary artery stent, initial encounter; Z95.5 Presence of coronary angioplasty implant and graft; J44.9 Chronic obstructive pulmonary disease, unspecified; I10 Essential (primary) hypertension; E78.5 Hyperlipidemia, unspecified; K21.9 Gastro-esophageal reflux disease without esophagitis; F17.210 Nicotine dependence, cigarettes, uncomplicated; Z82.49 Family history of ischemic heart disease and other diseases of the circulatory system; Z79.899 Other long term (current) drug therapy; Z88.0 Allergy status to penicillin; Z88.8 Allergy status to other drugs, medicaments and biological substances; Z20.822 Contact with and (suspected) exposure to COVID-19
CPT/HCPCS: 36415; 71045; 80048; 83880; 84484; 85025; 85610; 85730; 93005; 93458; 99152; 99284; C1725; C1769; C9803; G0378; J1644; J2405; Q9967; U0003; U0005

== ENCOUNTER → 2021-05-07 09:58 | Outpatient (CLI) | payer OTHER, SELFPAY ==
--- NOTE | 2021-05-07 10:00 | CA_ITS ---
FINAL REPORT TECHNIQUE: Axial and color Doppler waveform evaluation of the right upper extremity was performed. CLINICAL HISTORY: RT WRIST/FOREARM PAIN S/P HEART CATH 05/03/21.PT ON ASA AND PRASUGREL FINDINGS: No evidence of pseudoaneurysm, AV fistula or thrombus is identified in the right wrist. IMPRESSION: No evidence of pseudoaneurysm, AV fistula or thrombus is identified in the right wrist. Reviewed, Interpreted and Dictated by Jay Romero III, MD Transcribed by Leti Epps Authenticated by Jay Romero III, MD on 05/07/2021 01:13:22 PM [facility]
== END ==
PROVIDERS: PCP Emergency Medicine; Visit Provider Internal Medicine Cardiovascular Disease
DX: I72.9 Aneurysm of unspecified site (principal)
CPT/HCPCS: 93931

== ENCOUNTER → 2021-10-19 06:47 | Outpatient (CLI) | payer OTHER, SELFPAY ==
[2021-10-19 19:11] LABS: Basophils # 0.1 K/mm3 (0-0.2); Basophils % 1.2 % (0.1-2.0); Eosinophils # 0.2 K/mm3 (0.0-0.4); Eosinophils % 2.8 % (0.1-12.0); Hematocrit 45.6 % (42.0-52.0); Hemoglobin 14.9 g/dL (14.1-18.0); Lymphocytes # 2.2 K/mm3 (0.7-4.5); Lymphocytes % 29.4 % (10-50); Mean Corpuscular HGB Conc 32.7 g/dL (31.8-35.4); Mean Corpuscular Hemoglobin 34.3 pg (27.0-31.2); Mean Corpuscular Volume 105.1 fl (80-94); Mean Platelet Volume 8.3 fl (7.4-10.4); Monocytes # 0.4 K/mm3 (0.1-1.0); Neutrophils # 4.6 K/mm3 (1.8-7.8); Neutrophils % 61.5 % (37.0-80.0); Platelet Count 295 K/mm3 (142-424); Red Blood Count 4.34 M/mm3 (4.60-6.20); Red Cell Distribution Width 13.7 % (11.5-17.5); White Blood Count 7.5 K/mm3 (4.8-10.8)
[2021-10-19 19:26] LABS: Alanine Aminotransferase 17 U/L (12-78); Albumin/Globulin Ratio 1.3 (1.1-1.8); Alkaline Phosphatase 102 U/L (38-126); Aspartate Amino Transferase 28 U/L (17-59); Bilirubin,Total 0.8 mg/dl (0.2-1.3); Blood Urea Nitrogen 12 mg/dl (9-20); Calcium 9.5 mg/dl (8.4-10.2); Carbon Dioxide 23 mmol/L (22.0-30.0); Chloride 109 mmol/L (98-107); Chol/HDL Ratio 2.8 (1-3.5); Cholesterol 104 mg/dl (140-200); Estimated Glomerular Filt Rate 76 ml/min (>60); GFR (African American) 92 ML/MIN (>60); Glucose 98 mg/dl (74-100); HDL Cholesterol 37 mg/dl (40-60); Sodium 139 mmol/L (136-145); Triglycerides 64 mg/dl (30-150); VLDL Cholesterol 13 mg/dL (0-40)
[2021-10-19 19:56] LABS: Prostate Specific Ag Screen 0.5 ng/ml (0.0-4.0)
[2021-10-19 20:49] LABS: Anion Gap 11.4 mEq/L (5-15); Potassium 4.4 mmoL/L (3.5-5.1)
[2021-10-21 08:45] LABS: Direct LDL Cholesterol 52 mg/dL (100-129)
== END ==
PROVIDERS: PCP Family Medicine; Visit Provider Family Medicine
DX: E78.5 Hyperlipidemia, unspecified (principal); I10 Essential (primary) hypertension; Z12.5 Encounter for screening for malignant neoplasm of prostate
CPT/HCPCS: 80053; 80061; 85025; G0103

== ENCOUNTER → 2022-01-12 14:57 | Outpatient (CLI) | payer OTHER, SELFPAY ==
[2022-01-12 17:58] LABS: Barbiturates Screen,Urine Negative ng/ml (<200)
[2022-01-12 17:59] LABS: Benzodiazepines Screen,Urine Negative ng/ml (<200)
[2022-01-12 18:00] LABS: Amphetamine/Metha Screen,Urine Negative ng/ml (<1000); Cannabinoid Screen,Urine Negative ng/ml (<50)
[2022-01-12 18:01] LABS: Cocaine Screen,Urine Negative ng/ml (<300)
[2022-01-12 18:02] LABS: Methadone Screen,Urine Negative ng/ml (<300)
[2022-01-12 18:03] LABS: Opiate Screen,Urine Negative ng/ml (<300); Phencyclidine Screen,Urine Negative ng/ml (<25)
== END ==
PROVIDERS: PCP Emergency Medicine; Visit Provider Emergency Medicine
DX: Z79.899 Other long term (current) drug therapy (principal)
CPT/HCPCS: 80305

== ENCOUNTER → 2022-04-12 16:03 | Outpatient (CLI) | payer OTHER, SELFPAY ==
[2022-04-12 16:15] LABS: MANUAL DIFFERENTIAL MANUAL DIFFERENTIAL (MANUAL DIFF)
[2022-04-12 16:48] LABS: Basophils # 0.1 K/mm3 (0-0.2); Basophils % 1.2 % (0.1-2.0); Eosinophils # 0.3 K/mm3 (0.0-0.4); Eosinophils % 2.4 % (0.1-12.0); Hematocrit 47.4 % (42.0-52.0); Hemoglobin 15.3 g/dL (14.1-18.0); Lymphocytes # 2.4 K/mm3 (0.7-4.5); Lymphocytes % 23.1 % (10-50); Mean Corpuscular HGB Conc 32.4 g/dL (31.8-35.4); Mean Corpuscular Hemoglobin 32.7 pg (27.0-31.2); Mean Corpuscular Volume 100.9 fl (80-94); Mean Platelet Volume 7.7 fl (7.4-10.4); Monocytes # 0.4 K/mm3 (0.1-1.0); Monocytes % 3.6 % (1.7-9.3); Neutrophils # 7.3 K/mm3 (1.8-7.8); Neutrophils % 69.7 % (37.0-80.0); Platelet Count 290 K/mm3 (142-424); Red Blood Count 4.69 M/mm3 (4.60-6.20); Red Cell Distribution Width 13.1 % (11.5-17.5); White Blood Count 10.5 K/mm3 (4.8-10.8)
[2022-04-12 17:03] LABS: Chloride 111 mmol/L (98-107); Sodium 142 mmol/L (136-145)
[2022-04-12 17:04] LABS: Potassium 4.7 mmoL/L (3.5-5.1)
[2022-04-12 17:07] LABS: Anion Gap 9.7 mEq/L (5-15); Blood Urea Nitrogen 20 mg/dl (9-20); Calcium 9.4 mg/dl (8.4-10.2); Carbon Dioxide 26 mmol/L (22.0-30.0); Estimated Glomerular Filt Rate 62 ml/min (>60); GFR (African American) 74 ML/MIN (>60); Glucose 88 mg/dl (74-100)
[2022-04-12 18:46] LABS: Eosinophils % 1 % (0-3); Lymphocytes % 36 % (10-50); Monocytes % 2 % (2-9); Neutrophils % 61 % (42-76); Platelet Estimate Normal; RBC Morphology Normal; Total Cells Counted 100
[2022-04-13 16:58] LABS: Alanine Aminotransferase 18 U/L (12-78); Albumin Level 4.4 g/dl (3.5-5.0); Alkaline Phosphatase 95 U/L (38-126); Amylase 77 U/L (30-110); Aspartate Amino Transferase 29 U/L (17-59); Bilirubin,Direct 0.2 mg/dl (0.0-0.4); Bilirubin,Total 1.2 mg/dl (0.2-1.3); Lipase 132 U/L (23-300); Total Protein,Serum 7.3 g/dl (6.3-8.2)
== END ==
PROVIDERS: Physician Assistant; PCP Emergency Medicine; Visit Provider Internal Medicine
DX: R00.2 Palpitations (principal); E78.2 Mixed hyperlipidemia
CPT/HCPCS: 36415; 80048; 80076; 82150; 83690; 85007; 85014; 85018; 85048; 85049

== ENCOUNTER → 2022-04-13 23:30 | Outpatient (CLI) | payer OTHER, SELFPAY ==
[2022-04-13 23:49] LABS: Amphetamine/Metha Screen,Urine Negative ng/ml (<1000); Barbiturates Screen,Urine Negative ng/ml (<200); Benzodiazepines Screen,Urine Positive ng/ml (<200); Cannabinoid Screen,Urine Negative ng/ml (<50); Cocaine Screen,Urine Negative ng/ml (<300); Methadone Screen,Urine Negative ng/ml (<300); Opiate Screen,Urine Negative ng/ml (<300); Phencyclidine Screen,Urine Negative ng/ml (<25)
== END ==
PROVIDERS: PCP Emergency Medicine; Visit Provider Emergency Medicine
DX: Z79.899 Other long term (current) drug therapy (principal); I25.10 Atherosclerotic heart disease of native coronary artery without angina pectoris; I10 Essential (primary) hypertension; E78.2 Mixed hyperlipidemia; F17.200 Nicotine dependence, unspecified, uncomplicated; Z95.5 Presence of coronary angioplasty implant and graft
CPT/HCPCS: 36415; 80076; 80305; 82150; 83690

== ENCOUNTER → 2022-05-25 14:19 | Outpatient (CLI) | payer OTHER, SELFPAY ==
[2022-05-25 14:33] LABS: Basophils # 0.1 K/mm3 (0-0.2); Basophils % 1.4 % (0.1-2.0); Eosinophils # 0.5 K/mm3 (0.0-0.4); Eosinophils % 6.1 % (0.1-12.0); Hematocrit 46.8 % (42.0-52.0); Hemoglobin 15.1 g/dL (14.1-18.0); Lymphocytes # 2.2 K/mm3 (0.7-4.5); Lymphocytes % 29.6 % (10-50); Mean Corpuscular HGB Conc 32.2 g/dL (31.8-35.4); Mean Corpuscular Hemoglobin 32.4 pg (27.0-31.2); Mean Corpuscular Volume 100.5 fl (80-94); Mean Platelet Volume 7.5 fl (7.4-10.4); Monocytes # 0.4 K/mm3 (0.1-1.0); Monocytes % 4.6 % (1.7-9.3); Neutrophils # 4.4 K/mm3 (1.8-7.8); Neutrophils % 58.4 % (37.0-80.0); Platelet Count 312 K/mm3 (142-424); Red Blood Count 4.65 M/mm3 (4.60-6.20); Red Cell Distribution Width 13.2 % (11.5-17.5); White Blood Count 7.6 K/mm3 (4.8-10.8)
[2022-05-25 15:01] LABS: Troponin I < 0.01 ng/ml (0.00-0.034)
[2022-05-25 15:18] LABS: Alanine Aminotransferase 19 U/L (12-78); Albumin Level 4.5 g/dl (3.5-5.0); Alkaline Phosphatase 127 U/L (38-126); Anion Gap 11.6 mEq/L (5-15); Aspartate Amino Transferase 27 U/L (17-59); Bilirubin,Direct 0.3 mg/dl (0.0-0.4); Bilirubin,Indirect 0.2 mg/dL (0.0-0.9); Bilirubin,Total 0.5 mg/dl (0.2-1.3); Bilirubin,Unconjugated 0.3 mg/dL (0.0-1.1); Blood Urea Nitrogen 19 mg/dl (9-20); Carbon Dioxide 27 mmol/L (22.0-30.0); Chloride 104 mmol/L (98-107); Chol/HDL Ratio 2.5 (1-3.5); Cholesterol 118 mg/dl (140-200); Estimated Glomerular Filt Rate 68 ml/min (>60); GFR (African American) 82 ML/MIN (>60); Glucose 112 mg/dl (74-100); HDL Cholesterol 47 mg/dl (40-60); Potassium 4.6 mmoL/L (3.5-5.1); Sodium 138 mmol/L (136-145); Total Protein,Serum 7.2 g/dl (6.3-8.2); Triglycerides 117 mg/dl (30-150); VLDL Cholesterol 23 mg/dL (0-40)
[2022-05-25 15:29] LABS: Direct LDL Cholesterol 60.09 mg/dL (100-129)
[2022-05-25 15:35] LABS: Free T4 (Free Thyroxine) 1.21 ng/dl (0.78-2.19)
[2022-05-25 15:50] LABS: Thyroid Stimulating Hormone 2.13 uIU/mL (0.465-4.68)
== END ==
PROVIDERS: PCP Emergency Medicine; Visit Provider Internal Medicine
DX: R06.00 Dyspnea, unspecified (principal); R06.01 Orthopnea; R06.02 Shortness of breath; I20.0 Unstable angina; I11.9 Hypertensive heart disease without heart failure; E78.2 Mixed hyperlipidemia; I63.9 Cerebral infarction, unspecified; J44.9 Chronic obstructive pulmonary disease, unspecified; K21.9 Gastro-esophageal reflux disease without esophagitis; E11.9 Type 2 diabetes mellitus without complications; Z87.891 Personal history of nicotine dependence; Z95.5 Presence of coronary angioplasty implant and graft
CPT/HCPCS: 36415; 80048; 80061; 80076; 84439; 84443; 84484; 85025

== ENCOUNTER 2022-05-26 08:18 | Day surgery (SDC) | payer OTHER, SELFPAY ==
[2022-05-26] VITALS (13 sets, daily range): BP systolic 104–135; BP diastolic 58–74; PULSE 42–54; RESP 18–20; TEMP 36.9; O2SAT 95–100; BMI 25.8
--- NOTE | 2022-05-26 07:44 | IR_ITS ---
APPROVED REPORT Patient Location: Outpatient [employer] Operator: KAMALJIT Grey RT (R) PROCEDURES Left heart catheterization Left ventriculogram Selective coronary angiogram INDICATION Known coronary artery disease, Angina pectoris class IV with an accelerated component Informed consent was obtained prior to the procedure. COMPLICATIONS None Estimated Blood Loss: Less than 10 mls TECHNIQUE One percent lidocaine was used to anesthetize the right groin. The right femoral artery was accessed via the Seldinger technique. A 4-Uzbek sheath was placed in the right femoral artery. The JL-4 and JR-4 catheter was also used to perform left heart catheterization left ventriculogram and selective coronary angiogram. At the end of the procedure the patient was transferred to the post-op holding area in stable condition for arterial sheath removal. ANGIOGRAPHIC RESULTS The left main artery Normal The left anterior descending artery Has a stent in the proximal segment which extends into the midportion. The proximal portion is widely patent while the midportion has 30 to 40% concentric stenosis. The circumflex artery Nondominant with proximal 10 to 20% stenosis and a 20% stenosis in the first obtuse marginal artery The right coronary artery Large dominant with proximal 10 to 20% stenoses and a mid vessel 30 to 40% concentric stenosis. The posterior descending artery is large and has a proximal hazy 10 to 20% stenosis The CALLEJAS ventriculogram reveals Ejection fraction 55% with mild anterior wall hypokinesis The left ventricular end-diastolic pressure 10 mmHg IMPRESSION Coronary disease as described above Endothelial dysfunction is the etiology for patient's accelerated angina PLAN 1. Avoidance of tobacco products which is the etiology for patient's chest pain and contributing significantly to the endothelial dysfunction 2. Maximize nitrates and Ranexa 3. Continue aggressive risk factor modification Electronically signed by : Jad Montanez MD 05/26/2022 10:43:02
== END 2022-05-26 14:00 | disposition home or self-care (01) ==
LOC: CATHLAB 08:19
PROVIDERS: PCP Emergency Medicine; Visit Provider Internal Medicine
DX: R07.9 Chest pain, unspecified (principal); I25.110 Atherosclerotic heart disease of native coronary artery with unstable angina pectoris; E78.2 Mixed hyperlipidemia; I10 Essential (primary) hypertension; J44.9 Chronic obstructive pulmonary disease, unspecified; R06.00 Dyspnea, unspecified; K21.9 Gastro-esophageal reflux disease without esophagitis; R06.01 Orthopnea; R06.02 Shortness of breath; Z95.5 Presence of coronary angioplasty implant and graft
CPT/HCPCS: 93458; 99152; C1725; C1769; J1644; Q9967

== ENCOUNTER → 2022-09-22 11:56 | Outpatient (CLI) | payer OTHER, SELFPAY ==
[2022-09-22 12:35] LABS: Alanine Aminotransferase 23 U/L (12-78); Albumin Level 4.5 g/dl (3.5-5.0); Alkaline Phosphatase 104 U/L (38-126); Anion Gap 11.6 mEq/L (5-15); Aspartate Amino Transferase 35 U/L (17-59); Bilirubin,Indirect 0.7 mg/dL (0.0-0.9); Bilirubin,Total 0.7 mg/dl (0.2-1.3); Bilirubin,Unconjugated 0.7 mg/dL (0.0-1.1); Blood Urea Nitrogen 19 mg/dl (9-20); Calcium 9.4 mg/dl (8.4-10.2); Carbon Dioxide 25 mmol/L (22.0-30.0); Chloride 108 mmol/L (98-107); Chol/HDL Ratio 2.8 (1-3.5); Cholesterol 98 mg/dl (140-200); Estimated Glomerular Filt Rate 61 ml/min (>60); GFR (African American) 74 ML/MIN (>60); Glucose 110 mg/dl (74-100); HDL Cholesterol 35 mg/dl (40-60); Potassium 4.6 mmoL/L (3.5-5.1); Sodium 140 mmol/L (136-145); Total Protein,Serum 7.4 g/dl (6.3-8.2); Triglycerides 109 mg/dl (30-150); VLDL Cholesterol 22 mg/dL (0-40)
[2022-09-22 12:46] LABS: Troponin I < 0.01 ng/ml (0.00-0.034)
[2022-09-22 13:05] LABS: Thyroid Stimulating Hormone 1.76 uIU/mL (0.465-4.68)
[2022-09-22 13:53] LABS: Free T4 (Free Thyroxine) 1.32 ng/dl (0.78-2.19)
[2022-09-22 15:00] LABS: Hematocrit 41.5 % (42.0-52.0); Hemoglobin 14.3 g/dL (14.1-18.0); Mean Corpuscular HGB Conc 34.5 g/dL (31.8-35.4); Mean Corpuscular Hemoglobin 32.9 pg (27.0-31.2); Mean Corpuscular Volume 95.4 fl (80-94); Mean Platelet Volume 9.7 fl (7.4-10.4); Platelet Count 263 K/mm3 (142-424); Red Blood Count 4.35 M/mm3 (4.60-6.20); White Blood Count 9.6 K/mm3 (4.8-10.8)
[2022-09-22 15:01] LABS: Basophils # 0.1 K/mm3 (0-0.2); Basophils % 0.6 % (0.1-2.0); Eosinophils # 0.4 K/mm3 (0.0-0.4); Eosinophils % 4.6 % (0.1-12.0); Lymphocytes # 1.9 K/mm3 (0.7-4.5); Lymphocytes % 20.3 % (10-50); Monocytes # 0.6 K/mm3 (0.1-1.0); Monocytes % 6.3 % (1.7-9.3); Neutrophils # 6.5 K/mm3 (1.8-7.8); Neutrophils % 68.1 % (37.0-80.0)
== END ==
PROVIDERS: PCP Emergency Medicine; Visit Provider Nurse Practitioner Family
DX: R06.00 Dyspnea, unspecified (principal); R07.89 Other chest pain; I25.10 Atherosclerotic heart disease of native coronary artery without angina pectoris; E11.9 Type 2 diabetes mellitus without complications; E78.5 Hyperlipidemia, unspecified; I11.9 Hypertensive heart disease without heart failure; Z72.0 Tobacco use; I63.9 Cerebral infarction, unspecified; Z95.5 Presence of coronary angioplasty implant and graft
CPT/HCPCS: 36415; 80048; 80061; 80076; 84439; 84443; 84484; 85025

== ENCOUNTER → 2022-11-04 12:00 | Outpatient (CLI) | payer OTHER, SELFPAY ==
[2022-11-04 19:05] LABS: Amphetamine/Metha Screen,Urine Negative ng/ml (<1000)
[2022-11-04 19:07] LABS: Barbiturates Screen,Urine Negative ng/ml (<200)
[2022-11-04 19:08] LABS: Benzodiazepines Screen,Urine Positive ng/ml (<200); Cannabinoid Screen,Urine Negative ng/ml (<50)
[2022-11-04 19:09] LABS: Cocaine Screen,Urine Negative ng/ml (<300); Methadone Screen,Urine Negative ng/ml (<300)
[2022-11-04 19:10] LABS: Opiate Screen,Urine Negative ng/ml (<300)
[2022-11-04 19:12] LABS: Phencyclidine Screen,Urine Negative ng/ml (<25)
== END ==
PROVIDERS: PCP Emergency Medicine; Visit Provider Emergency Medicine
DX: Z79.899 Other long term (current) drug therapy (principal)
CPT/HCPCS: 80305

== ENCOUNTER 2022-12-12 17:48 | Emergency (ER) | payer OTHER, SELFPAY ==
[2022-12-12 17:49] VITALS: BP 143/75; PULSE 58; RESP 18; TEMP 36.4; O2SAT 99; BMI 25.7
[2022-12-12 18:00] VITALS: BP 125/71; PULSE 57
--- NOTE | 2022-12-12 18:17 | CT_ITS ---
PROCEDURE INFORMATION: Exam: CT Abdomen And Pelvis With Contrast Exam date and time: 12/12/2022 7:41 PM Age: 62 years old Clinical indication: Pain and injury or trauma; Other: Injured playing basketball last week; Blunt; Lower; Abdominal pain; Localized; Additional info: Lower abd pain with bearing down, R/O hernia TECHNIQUE: Imaging protocol: Computed tomography of the abdomen and pelvis with contrast. Radiation optimization: All CT scans at this facility use at least one of these dose optimization techniques: automated exposure control; mA and/or kV adjustment per patient size (includes targeted exams where dose is matched to clinical indication); or iterative reconstruction. Contrast material: ISOVUE; Contrast volume: 75 ml; Contrast route: IV; REPORTING DATA: Count of CT and Cardiac NM exams in prior 12 months: This patient has received 0 known CTs and 0 known cardiac nuclear medicine studies in the 12 months prior to the current study. COMPARISON: CT ABDOMEN PELVIS WO CON 10/06/2020 11:25 AM FINDINGS: Liver: Normal. No mass. Gallbladder and bile ducts: Normal. No calcified stones. No ductal dilation. Pancreas: Normal. No ductal dilation. Spleen: Normal. No splenomegaly. Adrenal glands: Normal. No mass. Kidneys and ureters: 19 mm simple cyst anterior right kidney. . No follow-up imaging recommended . 15 mm nodule posterior left kidney 77 Hounsfield units.. Subcentimeter low attenuation area in the left kidney is too small for characterization. Stomach and bowel: Findings consistent with constipation.. Appendix: Normal appendix Intraperitoneal space: Unremarkable. No free air. No significant fluid collection. Vasculature: Unremarkable. No abdominal aortic aneurysm. Lymph nodes: Unremarkable. No enlarged lymph nodes. Urinary bladder: Unremarkable as visualized. Reproductive: Bilateral hydroceles in the scrotum. Consider scrotal ultrasound if clinically indicated. Bones/joints: Unremarkable. No acute fracture. Soft tissues: Unremarkable. IMPRESSION: 1. Bilateral hydroceles in the scrotum. Consider scrotal ultrasound if clinically indicated. 2. 15 mm nodule posterior left kidney 77 Hounsfield units.. Recommend MR without and with contrast or CT without and with contrast. MR is preferred for masses under 1.5 cm. COMMENTS: Consistent with the [employer]'s Incidental Findings Committee white paper (J Am Masoud Radiol 2018): Any incidental renal lesion less than 1 cm or classified as too small to characterize, or any incidental cystic renal lesion characterized as simple-appearing, is likely benign. No follow-up imaging is recommended for these lesions per consensus recommendations based on imaging criteria.
--- NOTE | 2022-12-12 18:17 | HMH.EDGENADL ---
Discharge Plan Disposition Patient Disposition: Home, Self-Care Chief Complaint: Abdominal Pain Prescriptions Prescriptions: No Action prasugrel 10 mg tablet 10 mg PO DAILY Qty: 90 3RF Rx Instructions: take one tablet by mouth once daily. alprazolam 0.5 mg tablet 0.5 mg PO QID PRN (Reason: Anxiety) Qty: 120 2RF ranolazine 1,000 mg tablet extended release 12 hr 1,000 mg PO BID hydrocodone-acetaminophen 5-325 mg tablet 1 tab PO TID PRN (Reason: pain) Qty: 21 0RF nitroglycerin 0.4 mg tablet, sublingual See Rx Instructions .ROUTE .COMPLEX Qty: 25 0RF Dose Instruction: DISSOLVE 1 TAB UNDER TONGUE AT ONSET OF CHEST PAIN. REPEAT EVERY 5 MINUTES FOR 3 DOSES IF NEEDED. IF NO RELIEF CALL 911. Rx Instructions: DISSOLVE 1 TAB UNDER TONGUE AT ONSET OF CHEST PAIN. REPEAT EVERY 5 MINUTES FOR 3 DOSES IF NEEDED. IF NO RELIEF CALL 911. atorvastatin 20 mg tablet See Rx Instructions .ROUTE .COMPLEX Rx Instructions: TAKE ONE TABLET BY MOUTH AT BEDTIME pantoprazole 40 mg tablet,delayed release (DR/EC) See Rx Instructions .ROUTE .COMPLEX Rx Instructions: TAKE ONE TABLET BY MOUTH ONCE A DAY FOR GERD Referrals Follow up/Referrals: Kumar Fagan MD [Primary Care Provider] - See instructions Activity Restrictions/Add. Instructions Additional Instructions/Restrictions: Call your family doctor to establish care for this visit to the emergency department and schedule follow-up within 48 hours to ensure improvement. If you have any worsening of your condition or any other concerning signs or symptoms, return to the emergency department or your primary care doctor for further evaluation. Talk to Rylan about bilateral hydroceles (fluid within the scrotum), as this can be better evaluated with ultrasound outpatient. Clinical Impressions Clinical Impression: Bilateral hydrocele Abdominal muscle strain Qualifiers: Encounter type: initial encounter Qualified Code(s): S39.011A - Strain of muscle, fascia and tendon of abdomen, initial encounter Instructions Patient Instructions: DI for Acute Abdominal Pain Discharge ED Provider: Perez Rivera General Adult HPI General Chief complaint: Abdominal Pain Stated complaint: sent by Dr. Rylan martínez pain Time Seen by Provider: 12/12/22 17:51 Mode of Arrival: Ambulatory Source of Information: Patient Limitations: No Limitations Description of Symptoms (Recalled from ER Triage Doc. by RN): sent by pcp to get ct scan of lower abd after experiencing pain in lower pelvic/groin region after swinging a softball bat on monday. pt denies n/v/d or fever as well and denies any issues/problems with urination or bowel mvmt History of Present Illness HPI narrative: 62-year-old male with history of hypertension, CAD status post stenting, COPD currently smoking presenting with abdominal pain. Patient states that 2 days prior to arrival on 12/10, he was batting at softball game. Afterward, had immediate pain in his lower abdomen. Made worse with twisting, standing up, made better with resting. Not present when current is not exerting himself. Also made worse with bearing down. Patient denies swelling of his abdomen or scrotum. No nausea or vomiting, patient tolerating p.o. intake without issue, still having bowel movements and passing gas. Has not taken any medication to see if it makes it better. Went to his primary care doctor today, 12/12, who told him to come to the emergency department out of concern that I ruptured something. Related Data Home Medications Medication Instructions Recorded Confirmed atorvastatin 20 mg tablet See Rx Instructions .Route 05/26/22 12/12/22 .COMPLEX Cholesterol pantoprazole 40 mg tablet,delayed See Rx Instructions .Route 05/26/22 12/12/22 release .COMPLEX stomach ranolazine 1,000 mg 1,000 mg PO BID 12/12/22 tablet,extended release,12 hr Previous Rx's Medication Instructions Recorded pra
[2022-12-12 18:30] VITALS: BP 148/86
[2022-12-12 19:05] LABS: Basophils % 0.4 % (0.1-2.0); Eosinophils # 0.2 K/mm3 (0.0-0.4); Eosinophils % 2.5 % (0.1-12.0); Hematocrit 49.7 % (42.0-52.0); Hemoglobin 16.7 g/dL (14.1-18.0); Lymphocytes # 2.2 K/mm3 (0.7-4.5); Lymphocytes % 23.7 % (10-50); Mean Corpuscular HGB Conc 33.5 g/dL (31.8-35.4); Mean Corpuscular Hemoglobin 33.5 pg (27.0-31.2); Mean Corpuscular Volume 100.1 fl (80-94); Monocytes # 0.4 K/mm3 (0.1-1.0); Monocytes % 4.3 % (1.7-9.3); Neutrophils # 6.3 K/mm3 (1.8-7.8); Platelet Count 300 K/mm3 (142-424); Red Blood Count 4.97 M/mm3 (4.60-6.20); Red Cell Distribution Width 13.2 % (11.5-17.5); White Blood Count 9.1 K/mm3 (4.8-10.8)
[2022-12-12 19:23] LABS: Alanine Aminotransferase 23 U/L (12-78); Albumin Level 4.7 g/dl (3.5-5.0); Albumin/Globulin Ratio 1.1 (1.1-1.8); Alkaline Phosphatase 90 U/L (38-126); Anion Gap 11.8 mEq/L (5-15); Aspartate Amino Transferase 29 U/L (17-59); Bilirubin,Total 1.2 mg/dl (0.2-1.3); Blood Urea Nitrogen 19 mg/dl (9-20); Calcium 9.8 mg/dl (8.4-10.2); Carbon Dioxide 28 mmol/L (22.0-30.0); Chloride 107 mmol/L (98-107); Creatinine Clearance Estimated 73 mL/min (50-200); Estimated Glomerular Filt Rate 68 ml/min (>60); GFR (African American) 82 ML/MIN (>60); Globulin 4.1 g/dL (1.3-3.2); Glucose 97 mg/dl (74-100); Potassium 4.8 mmoL/L (3.5-5.1); Sodium 142 mmol/L (136-145); Total Protein,Serum 8.8 g/dl (6.3-8.2)
--- NOTE | 2022-12-12 19:38 | PC.NURSE ---
pt to radiology
[2022-12-12 20:50] VITALS: BP 135/80; PULSE 74; RESP 17; TEMP 36.7; O2SAT 97
== END 2022-12-12 20:55 | disposition home or self-care (01) ==
PROVIDERS: Emergency Provider Emergency Medicine; PCP Emergency Medicine
DX: S39.011A Strain of muscle, fascia and tendon of abdomen, initial encounter (principal); N43.3 Hydrocele, unspecified; F17.210 Nicotine dependence, cigarettes, uncomplicated; J44.9 Chronic obstructive pulmonary disease, unspecified; I25.10 Atherosclerotic heart disease of native coronary artery without angina pectoris; I11.9 Hypertensive heart disease without heart failure; F41.9 Anxiety disorder, unspecified; Z95.5 Presence of coronary angioplasty implant and graft; X50.0XXA Overexertion from strenuous movement or load, initial encounter
CPT/HCPCS: 74177; 80053; 85025; 96374; 99284; Q9967

== ENCOUNTER → 2023-01-20 12:00 | Outpatient (CLI) | payer OTHER, SELFPAY ==
[2023-01-20 19:13] LABS: Amphetamine/Metha Screen,Urine Negative ng/ml (<1000); Barbiturates Screen,Urine Negative ng/ml (<200)
[2023-01-20 19:14] LABS: Benzodiazepines Screen,Urine Positive ng/ml (<200)
[2023-01-20 19:15] LABS: Cannabinoid Screen,Urine Negative ng/ml (<50); Cocaine Screen,Urine Negative ng/ml (<300)
[2023-01-20 19:16] LABS: Methadone Screen,Urine Negative ng/ml (<300)
[2023-01-20 19:19] LABS: Opiate Screen,Urine Negative ng/ml (<300)
[2023-01-20 19:20] LABS: Phencyclidine Screen,Urine Negative ng/ml (<25)
== END ==
PROVIDERS: PCP Emergency Medicine; Visit Provider Emergency Medicine
DX: M51.16 Intervertebral disc disorders with radiculopathy, lumbar region (principal)
CPT/HCPCS: 80305

== ENCOUNTER → 2023-02-20 11:59 | Outpatient (CLI) | payer OTHER, SELFPAY ==
[2023-02-20 12:05] LABS: Basophils % 0.4 % (0.1-2.0); Eosinophils # 0.5 K/mm3 (0.0-0.4); Eosinophils % 6.1 % (0.1-12.0); Hematocrit 48.2 % (42.0-52.0); Hemoglobin 16.9 g/dL (14.1-18.0); Lymphocytes # 2.5 K/mm3 (0.7-4.5); Lymphocytes % 33.3 % (10-50); Mean Corpuscular Volume 99.9 fl (80-94); Mean Platelet Volume 7.1 fl (7.4-10.4); Monocytes # 0.4 K/mm3 (0.1-1.0); Monocytes % 5.3 % (1.7-9.3); Neutrophils # 4.1 K/mm3 (1.8-7.8); Neutrophils % 54.9 % (37.0-80.0); Platelet Count 254 K/mm3 (142-424); Red Blood Count 4.82 M/mm3 (4.60-6.20); Red Cell Distribution Width 13.1 % (11.5-17.5); White Blood Count 7.5 K/mm3 (4.8-10.8)
[2023-02-20 12:12] LABS: Alanine Aminotransferase 20 U/L (12-78); Albumin Level 4.4 g/dl (3.5-5.0); Albumin/Globulin Ratio 1.3 (1.1-1.8); Alkaline Phosphatase 103 U/L (38-126); Anion Gap 11.3 mEq/L (5-15); Aspartate Amino Transferase 28 U/L (17-59); Bilirubin,Total 0.7 mg/dl (0.2-1.3); Blood Urea Nitrogen 15 mg/dl (9-20); Calcium 9.1 mg/dl (8.4-10.2); Carbon Dioxide 25 mmol/L (22.0-30.0); Chloride 107 mmol/L (98-107); Chol/HDL Ratio 3.1 (1-3.5); Cholesterol 115 mg/dl (140-200); Estimated Glomerular Filt Rate 68 ml/min (>60); GFR (African American) 82 ML/MIN (>60); Globulin 3.3 g/dL (1.3-3.2); Glucose 101 mg/dl (74-100); HDL Cholesterol 37 mg/dl (40-60); Potassium 4.3 mmoL/L (3.5-5.1); Sodium 139 mmol/L (136-145); Total Protein,Serum 7.7 g/dl (6.3-8.2); Triglycerides 138 mg/dl (30-150); VLDL Cholesterol 28 mg/dL (0-40)
[2023-02-20 12:24] LABS: Direct LDL Cholesterol 62.06 mg/dL (100-129)
[2023-02-20 12:26] LABS: 25-OH Vitamin D, Total 46.9 ng/mL (30-100)
[2023-02-20 12:29] LABS: T4 (Thyroxine) 8.7 ug/dl (5.53-11.0)
[2023-02-20 12:37] LABS: Barbiturates Screen,Urine Negative ng/ml (<200)
[2023-02-20 12:39] LABS: Amphetamine/Metha Screen,Urine Negative ng/ml (<1000); Cocaine Screen,Urine Negative ng/ml (<300)
[2023-02-20 12:40] LABS: Benzodiazepines Screen,Urine Positive ng/ml (<200)
[2023-02-20 12:41] LABS: Cannabinoid Screen,Urine Negative ng/ml (<50); Phencyclidine Screen,Urine Negative ng/ml (<25)
[2023-02-20 12:42] LABS: Methadone Screen,Urine Negative ng/ml (<300)
[2023-02-20 12:43] LABS: Prostate Specific Ag Screen 0.5 ng/ml (0.0-4.0); Thyroid Stimulating Hormone 2.93 uIU/mL (0.465-4.68)
[2023-02-20 13:02] LABS: Vitamin B12 272 pg/mL (239-931)
[2023-02-20 13:17] LABS: Opiate Screen,Urine Negative ng/ml (<300)
[2023-02-24 18:29] LABS: Opiates Negative ng/mL (Cutoff=100)
== END ==
LOC: LAB.DROPOF 12:00
PROVIDERS: PCP Nurse Practitioner Family; Visit Provider Family Medicine
DX: G89.29 Other chronic pain (principal); R53.83 Other fatigue; Z79.899 Other long term (current) drug therapy; Z12.5 Encounter for screening for malignant neoplasm of prostate
CPT/HCPCS: 80053; 80061; 80307; 80361; 82306; 82607; 84436; 84443; 85025; G0103; G0480

== ENCOUNTER → 2023-02-21 13:29 | Outpatient (CLI) | payer OTHER, SELFPAY | PROVIDERS: PCP Family Medicine; Visit Provider Family Medicine | DX: Z79.899 Other long term (current) drug therapy (principal) | CPT/HCPCS: 80361; G0480 ==

== ENCOUNTER 2023-04-11 08:37 | Day surgery (SDC) | payer OTHER, SELFPAY ==
[2023-04-11] VITALS (16 sets, daily range): BP systolic 106–155; BP diastolic 65–82; PULSE 45–65; RESP 16–20; TEMP 36.1; O2SAT 96–99; BMI 25.8
--- NOTE | 2023-04-11 07:06 | IR_ITS ---
APPROVED REPORT Patient Location: Outpatient PROCEDURES Left heart catheterization Left ventriculogram Selective coronary angiogram FFR angiogram to the right coronary INDICATION Coronary artery disease, Accelerated angina pectoris, Angiographic ambiguity in the right coronary Informed consent was obtained prior to the procedure. COMPLICATIONS NONE Estimated Blood Loss: LESS THAN 10 ML TECHNIQUE One percent lidocaine used to anesthetize the right anterior aspect of the wrist. The right radial artery was accessed via the Seldinger technique. A 6 Nepali sheath was placed in the right radial artery. 2.5 mg of Verapamil, 800 mcg of nitroglycerin, 1mg Lidocaine and 5000 U Heparin were given through the arterial sheath. The papa catheter was also used to perform left heart catheterization, left ventriculogram and selective coronary angiogram. At the end of the diagnostic angiogram FFR angiography was performed via cath works which produced an FFR index of 0.94 in the proximal segment and 0.84 distally. Because of this it was decided to proceed with medical management therefore the patient was transferred to the postop holding in stable condition for sheath removal ANGIOGRAPHIC RESULTS The left main artery Normal The left anterior descending artery Has a stent in the proximal segment which is widely patent free of in-stent restenosis with excellent proximal and distal transitioning. The distal LAD and distal diagonal artery is small caliber but patent The circumflex artery Is nondominant and has proximal and mid vessel and distal diffuse 10 to 20% stenoses The right coronary artery Is a dominant vessel and has proximal concentric 40 to 50% stenosis with diffuse 20 and 30% stenoses. The posterior descending artery has a proximal hazy 30 to 40% stenosis The CALLEJAS ventriculogram reveals Slightly reduced at 50% The left ventricular end-diastolic pressure 10 mmHg FFR of the right coronary artery 0.94 proximally and 0.84 distally IMPRESSION Coronary artery disease as described above most notably with widely patent stent in the proximal LAD Slightly reduced ejection fraction of 50% Normal LVEDP Nonischemic right coronary artery disease PLAN 1. Aggressive risk factor modification 2. Avoidance of tobacco products Electronically signed by : Jad Montanez MD 04/11/2023 12:43:28
[2023-04-11 09:12] LABS: Basophils # 0.1 K/mm3 (0-0.2); Basophils % 0.9 % (0.1-2.0); Eosinophils # 0.6 K/mm3 (0.0-0.4); Eosinophils % 6.1 % (0.1-12.0); Hematocrit 48.5 % (42.0-52.0); Hemoglobin 15.9 g/dL (14.1-18.0); Lymphocytes # 2.6 K/mm3 (0.7-4.5); Lymphocytes % 26.9 % (10-50); Mean Corpuscular HGB Conc 32.9 g/dL (31.8-35.4); Mean Corpuscular Hemoglobin 33.2 pg (27.0-31.2); Mean Corpuscular Volume 100.9 fl (80-94); Mean Platelet Volume 7.7 fl (7.4-10.4); Monocytes # 0.4 K/mm3 (0.1-1.0); Monocytes % 4.6 % (1.7-9.3); Neutrophils # 5.9 K/mm3 (1.8-7.8); Neutrophils % 61.4 % (37.0-80.0); Platelet Count 255 K/mm3 (142-424); Red Cell Distribution Width 13.3 % (11.5-17.5); White Blood Count 9.7 K/mm3 (4.8-10.8)
[2023-04-11 09:36] LABS: Anion Gap 9.9 mEq/L (5-15); Blood Urea Nitrogen 13 mg/dl (9-20); Carbon Dioxide 24 mmol/L (22.0-30.0); Chloride 110 mmol/L (98-107); Creatinine Clearance Estimated 74 mL/min (50-200); Estimated Glomerular Filt Rate 68 ml/min (>60); GFR (African American) 82 ML/MIN (>60); Glucose 107 mg/dl (74-100); Potassium 3.9 mmoL/L (3.5-5.1); Sodium 140 mmol/L (136-145)
[2023-04-11] MEDS: HEPARIN 1,000 UNITS/500ML NS (CATH LAB) 3000 UNIT IV (11:47)
[2023-04-11] MEDS: diphenhydrAMINE 50MG/ML VIAL 50 MG IV (11:48)
[2023-04-11] MEDS: 0.9 % SODIUM CHLORIDE 500 ML 25 ML IV (11:48)
[2023-04-11] MEDS: LIDOCAINE 1% 10ML MDV 20 ML IJ (11:48)
[2023-04-11] MEDS: MIDAZOLAM HCL 1MG/1ML 5ML VIAL 1 MG IV (12:23)
[2023-04-11] MEDS: FENTANYL 100MCG/2ML VIAL 50 MCG IV (12:24)
[2023-04-11] MEDS: IOPAMIDOL-370 (76%);100ML BOTTLE 80 ML IV (12:50)
== END 2023-04-11 15:38 | disposition home or self-care (01) ==
PROVIDERS: Visit Provider Internal Medicine
DX: I25.110 Atherosclerotic heart disease of native coronary artery with unstable angina pectoris (principal); F17.210 Nicotine dependence, cigarettes, uncomplicated; E78.5 Hyperlipidemia, unspecified; I10 Essential (primary) hypertension; J44.9 Chronic obstructive pulmonary disease, unspecified; K21.9 Gastro-esophageal reflux disease without esophagitis; Z95.5 Presence of coronary angioplasty implant and graft; Z79.899 Other long term (current) drug therapy; Z79.01 Long term (current) use of anticoagulants
CPT/HCPCS: 80048; 85025; 93458; 93571; 99152; C1725; C1769; J1644; Q9967

== ENCOUNTER 2023-08-15 11:37 | Emergency (ER) | payer OTHER, SELFPAY ==
[2023-08-15 12:00] VITALS: BP 121/80; PULSE 74; RESP 18; TEMP 36.6; O2SAT 97; BMI 25.8
--- NOTE | 2023-08-15 12:16 | ED_ITS ---
Discharge Plan Disposition Patient Disposition: Home, Self-Care Condition: Good Prescriptions Prescriptions: No Action atorvastatin 20 mg tablet See Rx Instructions .ROUTE .COMPLEX 90 Days Qty: 90 3RF Rx Instructions: TAKE ONE TABLET BY MOUTH AT BEDTIME pantoprazole 40 mg tablet,delayed release (DR/EC) See Rx Instructions .ROUTE .COMPLEX 90 Days Qty: 90 3RF Rx Instructions: TAKE ONE TABLET BY MOUTH ONCE A DAY FOR GERD prasugrel 10 mg tablet 10 mg PO DAILY Qty: 90 3RF Rx Instructions: take one tablet by mouth once daily. cyclobenzaprine 10 mg tablet 10 mg PO HS PRN (Reason: muscle spasm) Qty: 10 0RF clindamycin HCl 300 mg capsule 300 mg PO Q8H 10 Days Qty: 30 0RF nitroglycerin 0.4 mg tablet, sublingual See Rx Instructions .ROUTE .COMPLEX Qty: 20 1RF Dose Instruction: DISSOLVE 1 TAB UNDER TONGUEAT ONSET OF CHEST PAIN. REPEAT EVERY 5 MINUTES FOR 3 DOSES IF NEEDED. IF NO RELIEF CALL 911. Rx Instructions: DISSOLVE 1 TAB UNDER TONGUEAT ONSET OF CHEST PAIN. REPEAT EVERY 5 MINUTES FOR 3 DOSES IF NEEDED. IF NO RELIEF CALL 911. Referrals Follow up/Referrals: Venita Truong APRN [Primary Care Provider] - See instructions Activity Restrictions/Add. Instructions Additional Instructions/Restrictions: Keep the wound clean and dry. Keep a dressing on it if you are going to be getting it dirty. Watch the wound for signs of infection, such as redness, swelling, drainage, fever. etc. Take tylenol for pain. Follow up with your regular doctor. Return in 10 days to have the sutures removed. GO TO THE ER FOR ANY WORSENING SYMPTOMS OR CONCERNS. Rest your leg and keep it straight and elevated as much time as tolerated for the next few days. Clinical Impressions Clinical Impression: Laceration of right thigh, nursing home (current) use of anticoagulants Instructions Patient Instructions: DI for Laceration Repair -- Simple Discharge ED Provider: Lit Gonzalez [facility] General Stated complaint: AO 08/15/23 10:30, cut right leg Mode of Arrival: Ambulatory Source of Information: Patient Limitations: No Limitations Time Seen by Provider: 08/15/23 12:16 Description of Symptoms (Recalled from Triage Doc. by RN): Pt's symptoms are laceration on top of right leg. He is on blood thinner currently. 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 He states that his tetanus immunization is up to date. He is on longterm use of anticoagulants (prasugrel) for his history of CAD. Related Data Previous Rx's Medication Instructions Recorded atorvastatin 20 mg tablet See Rx Instructions .Route 01/20/23 .COMPLEX Cholesterol 90 days #90 tabs pantoprazole 40 mg tablet,delayed See Rx Instructions .Route 01/20/23 release .COMPLEX stomach 90 days #90 tabs prasugrel 10 mg tablet 10 mg PO DAILY Blood thinner #90 01/20/23 tabs nitroglycerin 0.4 mg sublingual See Rx Instructions .Route 06/19/23 tablet .COMPLEX #20 tabs clindamycin HCl 300 mg capsule 300 mg PO Q8H 10 days #30 caps 08/14/23 cyclobenzaprine 10 mg tablet 10 mg PO HS PRN muscle spasm #10 08/14/23 tabs Allergies Allergy/AdvReac Type Severity Reaction Status Date / Time Penicillins [PENICILLINS] Allergy Mild Verified 08/15/23 12:16 isosorbide [From Imdur] AdvReac Severe Verified 08/15/23 12:16 ticagrelor [From Brilinta] AdvReac Verified 08/15/23 12:16 Worker's Comp Is this a Worker's Comp case?: No [facility] Disclaimer: The information contained in this section may have been updated after the patient was seen, as this information can be updated by other users. Medical History (Updated 08/15/23 @ 13:16 by Lit Gonzalez APRN) Near syncope Family history of heart disease Dyspnea Chest pain Ex-smoker Hematuria Unstable angina Shortness of Breath Cough Typical angina Rhonchi Lesion of left [place] kidney Angina at rest Angina at rest Abdominal pain Meralgia paresthetica of right side Chest pain due to CAD Headache Paresthesias Lightheadedness History of fracture of tibia History of fibula fracture Leg pain Angina pectoris Palpitations Atypical chest pain COVID-19 ASCVD (arteriosclerotic cardiovascular disease) COPD (chronic obstructive pulmonary disease) Tobacco use CAD (coronary artery disease) Anxiety Hypertension Surgical History Status post cardiac catheterization Stented coronary artery Social History Smoking Status: Current every day smoker tobacco type: cigarettes packs per day: 1 second hand exposure: No alcohol intake: never substance use type: denies use current occupational status: employed Travel in the last 8 weeks: Inside the [place] household members: family housing: house 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 current occupational exposures/hazards: No caffeine: Yes ROS Obtained: Yes All systems reviewed & no additional complaints except as documented Constitutional Constitutional: Denies chills and Denies fever(s) Eyes Eyes: Denies eye discharge ENT Ears, Nose, Mouth, and Throat: Denies dizziness, Denies otalgia and Denies sore throat Cardiovascular Cardiovascular: Denies chest pain Respiratory Respiratory: Denies shortness of breath, Denies chest congestion, Denies cough, Denies stridor and Denies wheezing Gastrointestinal Gastrointestingal: Denies nausea or vomiting Musculoskeletal Musculoskeletal: Reports system reviewed and no additional complaints, except as documented and Denies arthralgias Integumentary/Breasts Skin/Breast: Denies rash Neurologic Neurologic: Denies dizziness and Denies paresthesias Allergic/Immunologic Allergic/Immunologic: Denies wheezing Physical Exam General General appearance: alert and in no apparent distress Head Head exam: atraumatic, normocephalic and normal inspection Eye Eye exam: Present normal appearance, PERRL and EOMI ENT ENT exam: Present normal exam, normal oropharynx, mucous membranes moist, TM's normal bilaterally and normal external ear exam Neck Neck exam: Present normal inspection, full ROM and trachea midline; Absent meningismus or lymphadenopathy Chest Chest inspection: Present normal inspection and symmetric chest wall rise; Absent tenderness Respiratory Respiratory exam: Present normal lung sounds bilaterally; Absent respiratory distress Cardiovascular Cardiovascular exam: Present regular rate and normal rhythm; Absent JVD Abdominal Exam Abdominal exam: Present soft and normal bowel sounds; Absent distention, tenderness or guarding Extremities Exam Extremities exam: Present normal inspection, full ROM and normal capillary refill; Absent calf tenderness Back Exam Back exam: Present normal inspection; Absent tenderness Neurological Exam Neurological exam: Present alert and oriented X3 Psychiatric Psychiatric exam: Present normal affect and normal mood Skin Skin exam: Present other (there is a 5 cm linear laceration that goes horizontally across his thigh approx 6 cm above his knee. it is deep enough for sutures, but no deep tissues, muscles, tendons, or arteries are involved. There is no foreign bodies noted. ) Lymphatic Lymphatic Findings: no adenopathy Medical Decision Making Medical Records Medical records reviewed: No I reviewed the patient's medical records. Anjel Inquiry Pt receiving controlled substance: No Vital Signs: 08/15/23 12:00 Temperature 97.9 F Temperature Source Oral Pulse Rate [Right Radial] 74 Respiratory Rate 18 Blood Pressure [Right Arm] 121/80 Blood Pressure Mean [Right Arm] 93 Blood Pressure Source [Right Arm] Automatic Cuff Blood Pressure Position [Right Arm] Sitting 02 Sat by Pulse Oximetry 97 Oxygen Delivery Method Room Air Medical Decision Narrative: knee immobilizer was given to the patient to use. he did not want to put in on in this office because he has to drive himself home. Procedures Risk/Benefits of Procedure(s) Were Explained: Yes Laceration Laceration 1: Site: lower extremity (thigh) Side (If applicable): right Size (cm): 5 Description: linear Depth: simple, single layer Local Anesthetic: lidocaine 1% Amount of anesthesia used (mL): 2 Pre-repair: wound explored, irrigated extensively and deep structures intact Skin layer closed with: nylon Size (cm): 5-0 Number of sutures: 14 Technique: simple, interrupted (He tolerated this well, the edges were approximated well. good closure was obtained. there was no bleeding or swelling noted after suture was complete. )
--- NOTE | 2023-08-15 13:17 | PC.NURSE ---
Placed 14 stitches into the right leg.
[2023-08-15 13:35] VITALS: BP 121/80; PULSE 74; RESP 18; TEMP 36.6; O2SAT 97
== END 2023-08-15 13:35 | disposition home or self-care (01) ==
PROVIDERS: Emergency Provider Nurse Practitioner Family; PCP Family Medicine
DX: S71.111A Laceration without foreign body, right thigh, initial encounter (principal); F17.210 Nicotine dependence, cigarettes, uncomplicated; Z86.79 Personal history of other diseases of the circulatory system; Z79.01 Long term (current) use of anticoagulants; W26.8XXA Contact with other sharp object(s), not elsewhere classified, initial encounter
CPT/HCPCS: 12002; 99204; 99213; G0463

== ENCOUNTER 2023-10-30 15:25 | Emergency (ER) | payer OTHER, SELFPAY ==
[2023-10-30 15:27] VITALS: BP 129/79; PULSE 60; RESP 18; TEMP 36.7; O2SAT 95; BMI 25.8
--- NOTE | 2023-10-30 15:43 | HMH.EDGENADL ---
Discharge Plan Disposition Patient Disposition: Home, Self-Care Condition: Good Prescriptions Prescriptions: New clindamycin HCl 300 mg capsule 300 mg PO Q6H 10 Days Qty: 40 0RF No Action atorvastatin 20 mg tablet See Rx Instructions .ROUTE .COMPLEX 90 Days Qty: 90 3RF Rx Instructions: TAKE ONE TABLET BY MOUTH AT BEDTIME pantoprazole 40 mg tablet,delayed release (DR/EC) See Rx Instructions .ROUTE .COMPLEX 90 Days Qty: 90 3RF Rx Instructions: TAKE ONE TABLET BY MOUTH ONCE A DAY FOR GERD prasugrel 10 mg tablet 10 mg PO DAILY Qty: 90 3RF Rx Instructions: take one tablet by mouth once daily. cyclobenzaprine 10 mg tablet 10 mg PO HS PRN (Reason: muscle spasm) Qty: 10 0RF clindamycin HCl 300 mg capsule 300 mg PO Q8H 10 Days Qty: 30 0RF nitroglycerin 0.4 mg tablet, sublingual See Rx Instructions .ROUTE .COMPLEX Qty: 20 1RF Dose Instruction: DISSOLVE 1 TAB UNDER TONGUEAT ONSET OF CHEST PAIN. REPEAT EVERY 5 MINUTES FOR 3 DOSES IF NEEDED. IF NO RELIEF CALL 911. Rx Instructions: DISSOLVE 1 TAB UNDER TONGUEAT ONSET OF CHEST PAIN. REPEAT EVERY 5 MINUTES FOR 3 DOSES IF NEEDED. IF NO RELIEF CALL 911. ranolazine 500 mg tablet extended release 12 hr 500 mg PO BID Qty: 60 5RF Referrals Follow up/Referrals: Tin Stapleton DO [Primary Care Provider] - See instructions Activity Restrictions/Add. Instructions Additional Instructions/Restrictions: Please follow-up with dentistry in 48 hours. You likely need full mouth extraction as you have multiple shards of teeth that are potential sources of infection. No evidence is present today of abscess or acute infection you are at high risk of developing one. Return to ER for any worsening signs or symptoms as needed Clinical Impressions Clinical Impression: Dental caries, Dentalgia Instructions Patient Instructions: DI for Tooth Decay Print Language Print Language: Danish Discharge ED Provider: Cami Dallas General Adult HPI <BRIDGETT Hampton - Last Filed: 10/30/23 16:07> General Chief complaint: Weakness Stated complaint: weak, nausea, dental pain Time Seen by Provider: 10/30/23 15:43 History of Present Illness HPI narrative: Patient presents for evaluation of upper and lower jaw pain for the last 3 days. Patient has a significant past medical history of dental caries with multiple broken off teeth. Patient has exactly 3 teeth left intact in his mouth. He denies fever chills hemoptysis hematochezia melena nausea vomit diarrhea. He does report occasional dizziness. He denies any cardiac chest pain diaphoresis. Related Data Previous Rx's ?Medication ?Instructions ?Recorded atorvastatin 20 mg tablet See Rx Instructions .Route 01/20/23 .COMPLEX Cholesterol 90 days #90 tabs pantoprazole 40 mg tablet,delayed See Rx Instructions .Route 01/20/23 release .COMPLEX stomach 90 days #90 tabs prasugrel 10 mg tablet 10 mg PO DAILY Blood thinner #90 01/20/23 tabs nitroglycerin 0.4 mg sublingual See Rx Instructions .Route 06/19/23 tablet .COMPLEX #20 tabs clindamycin HCl 300 mg capsule 300 mg PO Q8H 10 days #30 caps 08/14/23 cyclobenzaprine 10 mg tablet 10 mg PO HS PRN muscle spasm #10 08/14/23 tabs ranolazine 500 mg tablet,extended 500 mg PO BID #60 tabs 10/13/23 release,12 hr clindamycin HCl 300 mg capsule 300 mg PO Q6H 10 days #40 caps 10/30/23 Allergies Allergy/AdvReac Type Severity Reaction Status Date / Time Penicillins [PENICILLINS] Allergy Mild Verified 08/15/23 12:16 isosorbide [From Imdur] AdvReac Severe Verified 08/15/23 12:16 ticagrelor [From Brilinta] AdvReac Verified 08/15/23 12:16 PFSH <BRIDGETT Hampton - Last Filed: 10/30/23 16:07> [facility] Disclaimer: The information contained in this section may have been updated after the patient was seen, as this information can be updated by other users. Medical History (Updated 10/30/23 @ 15:58 by BRIDGETT Hampton)
--- NOTE | 2023-10-30 15:45 | ECG_ITS ---
APPROVED REPORT Exam: Resting ECG HR:56 bpm ECG Measurements Heart Rate 56 AXES OH 166 P 70 QRSd 92 QRS 59 QT 426 T 56 QTc 416 Conclusion SINUS BRADYCARDIA BORDERLINE ECG Electronically signed by : ORLANDO GONZALEZ, 10/31/2023 00:18:29
[2023-10-30 16:24] VITALS: BP 120/66; PULSE 60; RESP 12; TEMP 36.6; O2SAT 96
[2023-10-30 16:40] VITALS: BP 125/67; PULSE 60; RESP 16; TEMP 36.7; O2SAT 96
== END 2023-10-30 16:42 | disposition home or self-care (01) ==
PROVIDERS: Emergency Provider Emergency Medicine; PCP Internal Medicine
DX: R68.84 Jaw pain; R00.1 Bradycardia, unspecified; K02.9 Dental caries, unspecified; K08.89 Other specified disorders of teeth and supporting structures; F17.210 Nicotine dependence, cigarettes, uncomplicated
CPT/HCPCS: 93005; 99283

== ENCOUNTER 2024-01-23 11:57 | Outpatient (CLI) | payer OTHER, SELFPAY ==
[2024-01-23 12:45] LABS: Basophils # 0.1 K/mm3 (0-0.2); Basophils % 1.1 % (0.1-2.0); Eosinophils # 0.6 K/mm3 (0.0-0.4); Eosinophils % 8.6 % (0.1-12.0); Hematocrit 46.9 % (42.0-52.0); Hemoglobin 15.9 g/dL (14.1-18.0); Lymphocytes # 1.9 K/mm3 (0.7-4.5); Lymphocytes % 24.8 % (10-50); Mean Corpuscular Hemoglobin 34.3 pg (27.0-31.2); Mean Corpuscular Volume 100.9 fl (80-94); Mean Platelet Volume 7.2 fl (7.4-10.4); Monocytes # 0.4 K/mm3 (0.1-1.0); Monocytes % 5.6 % (1.7-9.3); Neutrophils # 4.5 K/mm3 (1.8-7.8); Platelet Count 263 K/mm3 (142-424); Red Blood Count 4.65 M/mm3 (4.60-6.20); Red Cell Distribution Width 13.6 % (11.5-17.5); White Blood Count 7.5 K/mm3 (4.8-10.8)
[2024-01-23 13:48] LABS: Alanine Aminotransferase 21 U/L (12-78); Albumin Level 4.2 g/dl (3.5-5.0); Alkaline Phosphatase 91 U/L (38-126); Aspartate Amino Transferase 28 U/L (17-59); Bilirubin,Direct 0.4 mg/dl (0.0-0.4); Bilirubin,Indirect 0.3 mg/dL (0.0-0.9); Bilirubin,Total 0.7 mg/dl (0.2-1.3); Bilirubin,Unconjugated 0.4 mg/dL (0.0-1.1); Blood Urea Nitrogen 15 mg/dl (9-20); Calcium 9.3 mg/dl (8.4-10.2); Carbon Dioxide 23 mmol/L (22.0-30.0); Chloride 108 mmol/L (98-107); Chol/HDL Ratio 2.8 (1-3.5); Cholesterol 102 mg/dl (140-200); Estimated Glomerular Filt Rate 68 ml/min (>60); GFR (African American) 82 ML/MIN (>60); Glucose 113 mg/dl (74-100); HDL Cholesterol 36 mg/dl (40-60); Sodium 139 mmol/L (136-145); Total Protein,Serum 6.9 g/dl (6.3-8.2); Triglycerides 129 mg/dl (30-150); VLDL Cholesterol 26 mg/dL (0-40)
[2024-01-23 13:54] LABS: Anion Gap 12.6 mEq/L (5-15); Potassium 4.6 mmoL/L (3.5-5.1)
[2024-01-23 14:01] LABS: Direct LDL Cholesterol 45.22 mg/dL (100-129); NT Pro Brain Natriuretic Pep. 63.1 pg/mL (0-125)
[2024-01-23 14:04] LABS: Free Thyroxine Index 2.8 ug/dL (5.93-13.13); T4 (Thyroxine) 8.5 ug/dl (5.53-11.0); Triiodothryronine (T3) Uptake 33 % (23.5-40.5); Troponin I < 0.01 ng/ml (0.00-0.034)
[2024-01-23 14:18] LABS: Thyroid Stimulating Hormone 2.05 uIU/mL (0.465-4.68)
== END 2024-01-23 23:59 | disposition home or self-care (01) ==
LOC: LAB 11:58
PROVIDERS: PCP Internal Medicine; Visit Provider Physician Assistant
DX: I25.110 Atherosclerotic heart disease of native coronary artery with unstable angina pectoris (principal); I10 Essential (primary) hypertension; E78.2 Mixed hyperlipidemia; Z72.0 Tobacco use
CPT/HCPCS: 36415; 80048; 80061; 80076; 83880; 84436; 84443; 84479; 84484; 85025

== ENCOUNTER 2024-02-07 06:26 | Outpatient (CLI) | payer OTHER, SELFPAY ==
--- NOTE | 2024-02-07 | CA_ITS ---
APPROVED REPORT Exam: Exercise Treadmill Ht: 5 ft 7 in Wt: 167 lbs BSA: 1.87 m2 HR: 53 bpm BP: 146/87 mmHg Stress Test Details Test: Exercise stress testing was performed using a Reed protocol. HR Resting HR: 53 bpm Max Heart Rate (APMHR): 157.635899 bpm Max HR Achieved: 146 bpm Target HR (85% APMHR): 133.779829 bpm % of APMHR: 92.99 Recovery HR: 91 bpm BP Resting BP: 146.0/87.0 mmHg Max BP: 198.0/98.0 mmHg Recovery BP: 156.0/91.0 mmHg ECG Resting ECG: Sinus nithya, otherwise normal Clinical Highest Stage Achieved: IV Stress ECG Conclusion Exercised 10:30 on Reed Protocol. Max HR: 146 % of PM: 92% Max BP: 198/98 MEts: 12.1 Test stopped due to: SOA, Fatigue. Symptoms: No CP. Arrhythmias/Ectopy: Occ PVC & fusion beat. One ventricular couplet. ST-T Changes: Motion artifact hinders definitive interpretation. There appears to be apprx 1mm of horizontal % upsloping ST depression laterally. Conclusion: EKG changes borderline (+) for ischemia. Myoview images reported separately. Electronically signed by : Marisa Bailon MD 02/07/2024 13:52:59
--- NOTE | 2024-02-07 06:31 | NM_ITS ---
APPROVED REPORT Exam: Nuclear Stress Test Indication: cad, htn, hyperlipidemia, tob use, fm hx, c.p., sob, fatigue Patient Location: Outpatient Stress Tech: [facility] Tech:Dorothea Sampson, ARRT RT (R)(N)(M) Ht: 5 ft 7 in Wt: 168 lbs HR: 53 bpm BP: 146/87 mmHg BSA: 1.88 m2 TID: 0.96 BMI: 26.3 History: cad, htn, hyperlipidemia, tob use, fm hx, c.p., sob, fatigue Procedure: Patient exercised on Reed protocol 10:30 minutes and sec, resting heart rate 53 bpm, resting blood pressure 146/87 mmHg, with exercise maximum heart rate achived was 146 bpm which is 92 % of the maximum predicted heart rate and blood pressure was 198/98 mmHg. Test was stopped due to fatigue. Patient denied any complaint of chest pain. Patient has average exercise capacity, achieved 12.1 METs of workload on treadmill, the blood pressure response to exercise was normal. Cardiac Stress and Resting SPECT Images: Cardiac Stress and Resting SPECT images were obtained using technetium 99m Myoview 31.8 mCi stress and 10.52 mCi at rest. Resting and stress imaging in supine and prone positions demonstrate a medium sized, mild, partially reversible perfusion defect in the inferior LV wall. Gated imaging demonstrates normal global and regional LV systolic function. LVEF is calculated at 59%. Conclusion: Medium sized, mild, partially reversible perfusion defect in the inferior LV wall. Findings are suggestive of partial reversible ischemia. Gated imaging demonstrates normal global and regional LV systolic function. LVEF is calculated at 59%. Electronically signed by : Marisa Bailon MD 02/07/2024 13:56:17
[2024-02-07] MEDS: ISOTOPE MYOVIEW (PER STUDY) 1 DOSE IV (08:23)
[2024-02-07] MEDS: SODIUM CHLORIDE 0.9% 10ML SYR (RAD ONLY) 10 ML IV ×2 (08:23)
== END 2024-02-07 23:59 | disposition home or self-care (01) ==
LOC: RAD 06:27
PROVIDERS: PCP Internal Medicine; Visit Provider Physician Assistant
DX: I25.110 Atherosclerotic heart disease of native coronary artery with unstable angina pectoris (principal); I10 Essential (primary) hypertension; E78.2 Mixed hyperlipidemia
CPT/HCPCS: 78452; 93017; 93018; A9502

== ENCOUNTER 2024-02-22 08:04 | Day surgery (SDC) | payer OTHER, SELFPAY ==
[2024-02-22] VITALS (12 sets, daily range): BP systolic 132–173; BP diastolic 69–101; PULSE 48–76; RESP 16–18; O2SAT 96–99; BMI 26.7
--- NOTE | 2024-02-22 07:59 | IR_ITS ---
APPROVED REPORT Patient Location: Outpatient Electronic Field Service Engineer: Kumar King RT (R) PROCEDURES Selective coronary angiogram Drug-eluting stent deployment to the proximal dominant right coronary Drug-eluting stent deployment to the proximal large posterior descending artery INDICATION Coronary artery disease, Angina pectoris, Abnormal Myoview inferior ischemia Informed consent was obtained prior to the procedure. COMPLICATIONS NONE Estimated Blood Loss: LESS THAN 10 ML TECHNIQUE One percent lidocaine used to anesthetize the right anterior aspect of the wrist. The right radial artery was accessed via the Seldinger technique. A 6 Colombian sheath was placed in the right radial artery. 2.5 mg of Verapamil, 800 mcg of nitroglycerin, 1mg Lidocaine and 5000 U Heparin were given through the arterial sheath. The 6 Colombian JL 3 guide catheter was used to perform selective coronary angiogram. At the end the diagnostic angiogram therapeutic heparin was administered giving a therapeutic ACT and the guide catheters placed in the right coronary followed by Choice PT extra-support wire placed distally. A 4 mm x 18 mm Juan frontier stent was deployed at 22 rodolfo in the proximal dominant right coronary reducing the stenosis to 0%. An additional 2.75 x 18 mm Juan frontier stent was deployed at 18 rodolfo in the proximal large posterior descending artery reducing the stenosis to 0%. KARLENE-3 flow was present before and after the procedure at the end the procedure the apparatus was removed the sheath was removed and hemostasis was achieved using TR banding patient was transferred to the postop putting in stable edition ANGIOGRAPHIC RESULTS The left main artery Normal The left anterior descending artery Has a stent in the proximal segment which is widely patent with distal concentric 30% in-stent restenosis. Remaining LAD is widely patent however is small and does not approach the apex The circumflex artery Is nondominant and has a proximal concentric 20% stenosis with 10% stenoses in the first obtuse marginal artery The right coronary artery Large dominant with a hazy 50% stenosis in the proximal segment followed by a proximal to mid vessel stent which is widely patent with minimal in-stent restenosis. Distal there is a 10 to 20% stenosis at the transition. A large posterior descending artery has a proximal hazy 70% stenosis The CALLEJAS ventriculogram reveals Not performed The left ventricular end-diastolic pressure Not measured IMPRESSION Coronary artery disease as described above Successful stent to the proximal dominant right coronary artery hazy disease reduced to 0% with 1 drug-eluting stent Successful stenting of the proximal posterior descending artery severe disease reduced to 0% with 1 drug-eluting stent PLAN 1. Dual antiplatelet therapy 2. Cardiac rehabilitation 3. Avoidance of tobacco products 4. Risk factor modification 5. LDL less than 55 to be achieved with high intensity statin Electronically signed by : Jad Montanez MD 02/22/2024 13:03:14
[2024-02-22 08:40] LABS: Chloride 110 mmol/L (98-107); Potassium 3.9 mmoL/L (3.5-5.1); Sodium 137 mmol/L (136-145)
[2024-02-22 08:43] LABS: Anion Gap 4.9 mEq/L (5-15); Blood Urea Nitrogen 16 mg/dl (9-20); Calcium 9.3 mg/dl (8.4-10.2); Carbon Dioxide 26 mmol/L (22.0-30.0); Creatinine Clearance Estimated 69 mL/min (50-200); Estimated Glomerular Filt Rate 61 ml/min (>60); GFR (African American) 74 ML/MIN (>60); Glucose 101 mg/dl (74-100)
[2024-02-22 08:45] LABS: Basophils % 0.8 % (0.1-2.0); Eosinophils % 5.7 % (0.1-12.0); Hematocrit 45.7 % (42.0-52.0); Hemoglobin 15.8 g/dL (14.1-18.0); Lymphocytes # 2.1 K/mm3 (0.7-4.5); Lymphocytes % 22.9 % (10-50); Mean Corpuscular HGB Conc 34.6 g/dL (31.8-35.4); Mean Corpuscular Hemoglobin 33.3 pg (27.0-31.2); Mean Corpuscular Volume 96.2 fl (80-94); Mean Platelet Volume 9.3 fl (7.4-10.4); Monocytes % 6.5 % (1.7-9.3); Neutrophils # 5.8 K/mm3 (1.8-7.8); Neutrophils % 63.8 % (37.0-80.0); Platelet Count 262 K/mm3 (142-424); Red Blood Count 4.75 M/mm3 (4.60-6.20); Red Cell Distribution Width 12.7 % (11.5-17.5); White Blood Count 9.1 K/mm3 (4.8-10.8)
[2024-02-22 08:46] LABS: Basophils # 0.1 K/mm3 (0-0.2); Eosinophils # 0.5 K/mm3 (0.0-0.4); Monocytes # 0.6 K/mm3 (0.1-1.0)
[2024-02-22] MEDS: HEPARIN 1,000 UNITS/ML 10ML VIAL (CATH LAB) 10000 UNIT IV ×3 (10:55→11:46)
[2024-02-22] MEDS: VERAPAMIL 2.5MG/ML 2ML VIAL 2.5 MG IV (10:55)
[2024-02-22] MEDS: LIDOCAINE 1% 10ML MDV 20 ML IJ (10:55)
[2024-02-22] MEDS: diphenhydrAMINE 50MG/ML VIAL 50 MG IV (10:56)
[2024-02-22] MEDS: HEPARIN 1,000 UNITS/500ML NS (CATH LAB) 3000 UNIT IV (10:56)
[2024-02-22] MEDS: 0.9 % SODIUM CHLORIDE 500 ML 25 ML IV (10:56)
[2024-02-22] MEDS: NITROGLYCERIN 800MCG/8ML SYR (CATH LAB) 800 MCG IA (10:57)
[2024-02-22] MEDS: ASPIRIN 81MG CHEWABLE TABLET 81 MG PO (11:40)
[2024-02-22] MEDS: PRASUGREL 10MG TAB 10 MG PO (11:40)
[2024-02-22] MEDS: MIDAZOLAM HCL 1MG/ML 5ML VIAL 1 MG IV (11:41)
[2024-02-22] MEDS: FENTANYL 100MCG/2ML VIAL 50 MCG IV (11:41)
[2024-02-22 14:18] LABS: CATHL Activated Clotting Time 252 SEC (74-125)
[2024-02-22] MEDS: IOPAMIDOL-370 (76%);100ML BOTTLE 75 ML IV (14:20)
== END 2024-02-22 14:46 | disposition home or self-care (01) ==
PROVIDERS: PCP Family Medicine; Visit Provider Internal Medicine
DX: I25.110 Atherosclerotic heart disease of native coronary artery with unstable angina pectoris (principal); R93.1 Abnormal findings on diagnostic imaging of heart and coronary circulation; Z95.5 Presence of coronary angioplasty implant and graft; I10 Essential (primary) hypertension; E78.2 Mixed hyperlipidemia; F17.210 Nicotine dependence, cigarettes, uncomplicated; K21.9 Gastro-esophageal reflux disease without esophagitis; J44.9 Chronic obstructive pulmonary disease, unspecified; Z79.899 Other long term (current) drug therapy; Z82.49 Family history of ischemic heart disease and other diseases of the circulatory system; Z86.16 Personal history of COVID-19
CPT/HCPCS: 80048; 85025; 85347; 92928; 99152; C1725; C1769; C1874; C9600; J1200; J1644; J2250; J3010; Q9967

== ENCOUNTER 2024-02-26 12:07 | Outpatient (CLI) | payer OTHER, SELFPAY ==
[2024-02-26 13:15] LABS: Chloride 111 mmol/L (98-107)
[2024-02-26 13:16] LABS: Potassium 4.3 mmoL/L (3.5-5.1); Sodium 135 mmol/L (136-145)
[2024-02-26 13:19] LABS: Anion Gap 7.3 mEq/L (5-15); Blood Urea Nitrogen 21 mg/dl (9-20); Calcium 9.9 mg/dl (8.4-10.2); Carbon Dioxide 21 mmol/L (22.0-30.0); Estimated Glomerular Filt Rate 68 ml/min (>60); GFR (African American) 82 ML/MIN (>60); Glucose 112 mg/dl (74-100)
[2024-02-26 13:29] LABS: Hematocrit 42.8 % (42.0-52.0); Hemoglobin 15.1 g/dL (14.1-18.0); Mean Corpuscular HGB Conc 35.3 g/dL (31.8-35.4); Mean Corpuscular Hemoglobin 33.7 pg (27.0-31.2); Mean Corpuscular Volume 95.5 fl (80-94); Mean Platelet Volume 9.4 fl (7.4-10.4); Platelet Count 275 K/mm3 (142-424); Red Blood Count 4.48 M/mm3 (4.60-6.20); Red Cell Distribution Width 12.6 % (11.5-17.5)
[2024-02-26 13:30] LABS: Basophils # 0.1 K/mm3 (0-0.2); Basophils % 0.7 % (0.1-2.0); Eosinophils # 0.3 K/mm3 (0.0-0.4); Eosinophils % 4.6 % (0.1-12.0); Lymphocytes # 1.3 K/mm3 (0.7-4.5); Lymphocytes % 18.1 % (10-50); Monocytes # 0.5 K/mm3 (0.1-1.0); Monocytes % 7.3 % (1.7-9.3); Neutrophils # 4.9 K/mm3 (1.8-7.8)
== END 2024-02-26 23:59 | disposition home or self-care (01) ==
LOC: LAB 12:08
PROVIDERS: PCP Family Medicine; Visit Provider Internal Medicine
DX: Z95.5 Presence of coronary angioplasty implant and graft (principal)
CPT/HCPCS: 36415; 80048; 85025

== ENCOUNTER 2024-03-20 11:25 | Outpatient (CLI) | payer OTHER, SELFPAY ==
[2024-03-20 11:49] LABS: Basophils # 0.1 K/mm3 (0-0.2); Basophils % 0.7 % (0.1-2.0); Eosinophils # 0.4 K/mm3 (0.0-0.4); Eosinophils % 4.8 % (0.1-12.0); Hematocrit 47.5 % (42.0-52.0); Hemoglobin 16.1 g/dL (14.1-18.0); Lymphocytes # 1.6 K/mm3 (0.7-4.5); Lymphocytes % 18.3 % (10-50); Mean Corpuscular HGB Conc 33.9 g/dL (31.8-35.4); Mean Corpuscular Volume 97.3 fl (80-94); Mean Platelet Volume 9.3 fl (7.4-10.4); Monocytes # 0.5 K/mm3 (0.1-1.0); Monocytes % 5.3 % (1.7-9.3); Neutrophils # 6.1 K/mm3 (1.8-7.8); Neutrophils % 70.6 % (37.0-80.0); Platelet Count 231 K/mm3 (142-424); Red Blood Count 4.88 M/mm3 (4.60-6.20); Red Cell Distribution Width 12.9 % (11.5-17.5); White Blood Count 8.6 K/mm3 (4.8-10.8)
[2024-03-20 12:29] LABS: Albumin Level 4.2 g/dl (3.5-5.0); Chloride 107 mmol/L (98-107); Potassium 4.4 mmoL/L (3.5-5.1); Sodium 138 mmol/L (136-145)
[2024-03-20 12:31] LABS: Blood Urea Nitrogen 22 mg/dl (9-20); Estimated Glomerular Filt Rate 75 ml/min (>60); GFR (African American) 91 ML/MIN (>60)
[2024-03-20 12:32] LABS: Alanine Aminotransferase 30 U/L (12-78); Anion Gap 12.4 mEq/L (5-15); Aspartate Amino Transferase 32 U/L (17-59); Bilirubin,Unconjugated 0.4 mg/dL (0.0-1.1); Calcium 9.8 mg/dl (8.4-10.2); Carbon Dioxide 23 mmol/L (22.0-30.0); Cholesterol 125 mg/dl (140-200); Glucose 148 mg/dl (74-100); Triglycerides 293 mg/dl (30-150); VLDL Cholesterol 59 mg/dL (0-40)
[2024-03-20 12:33] LABS: Alkaline Phosphatase 96 U/L (38-126); Bilirubin,Direct 0.2 mg/dl (0.0-0.4); Bilirubin,Indirect 0.4 mg/dL (0.0-0.9); Bilirubin,Total 0.6 mg/dl (0.2-1.3); HDL Cholesterol 31 mg/dl (40-60); Magnesium 1.8 mg/dl (1.6-2.3)
[2024-03-20 12:44] LABS: Direct LDL Cholesterol 57.65 mg/dL (100-129)
[2024-03-20 12:48] LABS: Free T4 (Free Thyroxine) 1.05 ng/dl (0.78-2.19)
[2024-03-20 13:05] LABS: Thyroid Stimulating Hormone 4.73 uIU/mL (0.465-4.68)
[2024-03-20 14:34] LABS: Hemoglobin A1C 5.8 % (4.0-6.0)
== END 2024-03-20 23:59 | disposition home or self-care (01) ==
LOC: LAB 13:42
PROVIDERS: PCP Family Medicine; Visit Provider Nurse Practitioner Family
DX: R20.0 Anesthesia of skin (principal); R20.2 Paresthesia of skin; Z00.00 Encounter for general adult medical examination without abnormal findings
CPT/HCPCS: 36415; 80048; 80061; 80076; 83036; 83735; 84439; 84443; 85025

== ENCOUNTER 2024-06-24 13:47 | Outpatient (CLI) | payer OTHER, SELFPAY ==
[2024-06-24 14:21] LABS: Basophils # 0.1 K/mm3 (0-0.2); Basophils % 0.6 % (0.1-2.0); Eosinophils # 0.3 Kmm3 (0.0-0.4); Eosinophils % 3.6 % (0.1-12.0); Hematocrit 45.2 % (42.0-52.0); Hemoglobin 15.5 g/dL (14.1-18.0); Lymphocytes # 2.2 K/mm3 (0.7-4.5); Lymphocytes % 27.9 % (10-50); Mean Corpuscular HGB Conc 34.3 g/dL (31.8-35.4); Mean Corpuscular Hemoglobin 33.9 pg (27.0-31.2); Mean Corpuscular Volume 98.9 fl (80-94); Mean Platelet Volume 9.3 fl (7.4-10.4); Monocytes # 0.5 K/mm3 (0.1-1.0); Neutrophils # 4.9 K/mm3 (1.8-7.8); Neutrophils % 61.5 % (37.0-80.0); Nucleated Red Blood Cells # 0 10^3/uL; Nucleated Red Blood Cells % 0 %; Platelet Count 276 K/mm3 (142-424); Red Blood Count 4.57 M/mm3 (4.60-6.20); Red Cell Distribution Width 13.1 % (11.5-17.5); Red Cell Distribution Width-SD 47.8 fL
[2024-06-24 15:39] LABS: Albumin Level 4.7 g/dl (3.5-5.0); Chloride 109 mmol/L (98-107)
[2024-06-24 15:40] LABS: Potassium 5.1 mmoL/L (3.5-5.1); Sodium 143 mmol/L (136-145)
[2024-06-24 15:42] LABS: Alanine Aminotransferase 20 U/L (12-78); Anion Gap 13.1 mEq/L (5-15); Aspartate Amino Transferase 29 U/L (17-59); Bilirubin,Unconjugated 0.7 mg/dL (0.0-1.1); Blood Urea Nitrogen 17 mg/dl (9-20); Carbon Dioxide 26 mmol/L (22.0-30.0); Cholesterol 126 mg/dl (140-200); Estimated Glomerular Filt Rate 68 ml/min (>60); GFR (African American) 82 ML/MIN (>60); Triglycerides 124 mg/dl (30-150); VLDL Cholesterol 25 mg/dL (0-40)
[2024-06-24 15:43] LABS: Alkaline Phosphatase 93 U/L (38-126); Bilirubin,Direct 0.2 mg/dl (0.0-0.4); Bilirubin,Indirect 0.7 mg/dL (0.0-0.9); Bilirubin,Total 0.9 mg/dl (0.2-1.3); Chol/HDL Ratio 2.7 (1-3.5); Glucose 105 mg/dl (74-100); HDL Cholesterol 47 mg/dl (40-60)
[2024-06-24 15:54] LABS: Direct LDL Cholesterol 53.09 mg/dL (100-129)
[2024-06-24 16:01] LABS: Free T4 (Free Thyroxine) 1.14 ng/dl (0.78-2.19)
[2024-06-24 16:14] LABS: Thyroid Stimulating Hormone 6.26 uIU/mL (0.465-4.68)
== END 2024-06-24 23:59 | disposition home or self-care (01) ==
LOC: RT 13:48
PROVIDERS: PCP Family Medicine; Visit Provider Internal Medicine
DX: R00.2 Palpitations (principal); E03.9 Hypothyroidism, unspecified; I10 Essential (primary) hypertension; I25.110 Atherosclerotic heart disease of native coronary artery with unstable angina pectoris; E78.2 Mixed hyperlipidemia
CPT/HCPCS: 36415; 80048; 80061; 80076; 84439; 84443; 85025; 93270

== ENCOUNTER 2024-07-08 09:42 | Outpatient (CLI) | payer OTHER, SELFPAY ==
--- NOTE | 2024-07-08 10:00 | CA_ITS ---
APPROVED REPORT EXAM: Comprehensive 2D, Doppler, and color-flow Echocardiogram [employer] Solution Architect: Sydnee Boland RT(R) Ht: 5 ft 7 in Wt: 171lbs BSA: 1.89 BP: 142/86 mmHg Indications: dyspnea, COPD, ex smoker, palpitations, SOB, BACA, hyperlipidemia, CAD, GERD, HTN 2D Dimensions LA Volume 22.90 mL LA Volume Index 12.12 mL/m2 (M/F) 16-34 EF AP4 62.00 % GL Strain -23.7 % M-Mode Dimensions RVDd 3.36 cm (0.9-2.6) LA Diam 3.79 cm (1.9-4.0) LVDd 4.60 cm (3.5-5.7) LVDs 3.40 cm (3.5-5.7) IVSd 0.88 cm (0.6-1.1) PWd 0.68 cm (0.6-1.1) EF (Teich) 51.30% FS 26.10% EDV (Teich) 97.30 mL TAPSE 1.98 (<1.7) ESV (Teich) 47.40 mL LV Diastology E Decel Time 180 (160-240 msec) E/A Ratio 1.2 Mitral Valve MV E Max Teodoro. 69.0 (40-130 cm/s) MV A Velocity 58.0 (40-130 cm/s) E/A Ratio 1.19 MV PHT 53.0 ms Left Ventricle The left ventricle is normal size. The left ventricular systolic function is normal. The left ventricular ejection fraction is within the normal range. There is normal left ventricular wall thickness. There is normal LV segmental wall motion. The left ventricular diastolic function is normal. LVEF is 60%. Right Ventricle The right ventricle is normal size. The right ventricular systolic function is normal. Atria The left atrium size is normal. The right atrium size is normal. There is no Doppler evidence of interatrial shunt. Aortic Valve The aortic valve is mildly thickened. There is no aortic valvular stenosis. No aortic regurgitation is present. Mitral Valve The mitral valve is normal in structure. No evidence of mitral valve stenosis. There is no mitral valve regurgitation noted. Tricuspid Valve Tricuspid valve is grossly normal in structure and function. Trace tricuspid regurgitation. There is insufficient TR jet to estimate RVSP. Pulmonic Valve The pulmonary valve is normal in structure. Trace pulmonic regurgitation. Great Vessels The aortic root is normal in size. IVC is normal in size and collapses >50% with inspiration. Pericardium There is no pericardial effusion. Other Information Study Quality: Adequate Conclusion Normal biventricular systolic function. No significant valvular stenosis or regurgitation. Electronically signed by : Marisa Bailon MD 07/14/2024 21:43:29
== END 2024-07-08 23:59 | disposition home or self-care (01) ==
LOC: RT 09:43
PROVIDERS: PCP Family Medicine; Visit Provider Internal Medicine
DX: I11.9 Hypertensive heart disease without heart failure (principal); I25.110 Atherosclerotic heart disease of native coronary artery with unstable angina pectoris; R00.2 Palpitations
CPT/HCPCS: 93306

== ENCOUNTER 2024-07-10 11:36 | Outpatient (CLI) | payer OTHER, SELFPAY ==
[2024-07-10 12:02] LABS: Basophils # 0.1 K/mm3 (0-0.2); Basophils % 0.9 % (0.1-2.0); Eosinophils # 0.2 Kmm3 (0.0-0.4); Eosinophils % 3.1 % (0.1-12.0); Hemoglobin 15.5 g/dL (14.1-18.0); Immature Granulocytes # 0.02 10^3uL; Immature Granulocytes % 0.3 %; Lymphocytes # 1.6 K/mm3 (0.7-4.5); Lymphocytes % 20.9 % (10-50); Mean Corpuscular HGB Conc 34.4 g/dL (31.8-35.4); Mean Corpuscular Volume 98.7 fl (80-94); Mean Platelet Volume 9.3 fl (7.4-10.4); Monocytes # 0.5 K/mm3 (0.1-1.0); Monocytes % 6.9 % (1.7-9.3); Neutrophils # 5.1 K/mm3 (1.8-7.8); Neutrophils % 67.9 % (37.0-80.0); Nucleated Red Blood Cells # 0 10^3/uL; Nucleated Red Blood Cells % 0 %; Platelet Count 256 K/mm3 (142-424); Red Blood Count 4.56 M/mm3 (4.60-6.20); Red Cell Distribution Width 13.2 % (11.5-17.5); Red Cell Distribution Width-SD 47.7 fL; White Blood Count 7.4 K/mm3 (4.8-10.8)
[2024-07-10 12:20] LABS: D-Dimer 0.78 ug/mL (0.0-0.5)
[2024-07-10 12:51] LABS: Alanine Aminotransferase 20 U/L (12-78); Albumin Level 4.5 g/dl (3.5-5.0); Alkaline Phosphatase 93 U/L (38-126); Anion Gap 8.9 mEq/L (5-15); Aspartate Amino Transferase 23 U/L (17-59); Bilirubin,Direct 0.1 mg/dl (0.0-0.4); Bilirubin,Indirect 0.6 mg/dL (0.0-0.9); Bilirubin,Total 0.7 mg/dl (0.2-1.3); Bilirubin,Unconjugated 0.5 mg/dL (0.0-1.1); Blood Urea Nitrogen 21 mg/dl (9-20); Calcium 9.8 mg/dl (8.4-10.2); Carbon Dioxide 27 mmol/L (22.0-30.0); Chloride 109 mmol/L (98-107); Chol/HDL Ratio 3.1 (1-3.5); Cholesterol 118 mg/dl (140-200); Estimated Glomerular Filt Rate 61 ml/min (>60); GFR (African American) 74 ML/MIN (>60); Glucose 118 mg/dl (74-100); HDL Cholesterol 38 mg/dl (40-60); Magnesium 2.1 mg/dl (1.6-2.3); Potassium 4.9 mmoL/L (3.5-5.1); Sodium 140 mmol/L (136-145); Total Protein,Serum 7.2 g/dl (6.3-8.2); Triglycerides 122 mg/dl (30-150); VLDL Cholesterol 24 mg/dL (0-40)
[2024-07-10 13:02] LABS: Direct LDL Cholesterol 48.76 mg/dL (100-129)
[2024-07-10 13:14] LABS: Triiodothryronine (T3) Uptake 35 % (23.5-40.5)
[2024-07-10 13:15] LABS: Free Thyroxine Index 3.1 ug/dL (5.93-13.13); T4 (Thyroxine) 8.8 ug/dl (5.53-11.0)
[2024-07-10 13:24] LABS: Troponin I < 0.01 ng/ml (0.00-0.034)
[2024-07-10 13:28] LABS: Thyroid Stimulating Hormone 4.98 uIU/mL (0.465-4.68)
--- NOTE | 2024-07-10 14:30 | CT_ITS ---
FINAL REPORT TECHNIQUE: Axial imaging of the chest is obtained after the administration of contrast. 3-D MIP reformatted images were also obtained and reviewed per PE protocol. CLINICAL HISTORY: Elevated D-dimer, SOA, tachycardia 100 c of isovue 370 40 cc saline saline flush COMPARISON: 07/02/2020 FINDINGS: There is suboptimal opacification of the peripheral pulmonary arteries for pulmonary embolism. No anterior or proximal segmental embolism identified. Exam is nondiagnostic for dissection. Heart size is normal. There is no thoracic lymphadenopathy. There is a tiny subpleural right upper lobe nodule on series 3, image 15 which is unchanged from 2020 exam and presumed benign. The lungs are otherwise clear. There are no consolidations. There is no pleural or pericardial effusion. Limited evaluation of the upper abdomen demonstrates hyperdense left renal lesion measuring 15 mm, previously measured 10 mm. This may represent a hemorrhagic or proteinaceous cysts. Simple appearing cyst is noted in the right kidney, also slightly increased in size. Otherwise, no acute findings. No acute osseous abnormality. IMPRESSION: No central or proximal segmental pulmonary embolism. Evaluation of peripheral pulmonary arteries is limited. Exam is nondiagnostic for dissection. Reviewed, Interpreted and Dictated by Arline Blakely MD Transcribed by Ada Romero Authenticated and [facility]
[2024-07-10] MEDS: 0.9 % SODIUM CHLORIDE 50 ML VIAL IV (15:00)
[2024-07-10] MEDS: IOPAMIDOL-370 (76%);100ML BOTTLE 75 ML IV (15:00)
[2024-07-10] MEDS: SODIUM CHLORIDE 0.9% 10ML SYR (RAD ONLY) 10 ML IV (15:00)
== END 2024-07-10 23:59 | disposition home or self-care (01) ==
PROVIDERS: PCP Family Medicine; Visit Provider Physician Assistant
DX: I25.110 Atherosclerotic heart disease of native coronary artery with unstable angina pectoris (principal); R07.2 Precordial pain; I10 Essential (primary) hypertension; E03.9 Hypothyroidism, unspecified; R79.89 Other specified abnormal findings of blood chemistry; R53.83 Other fatigue; E78.2 Mixed hyperlipidemia; Z95.5 Presence of coronary angioplasty implant and graft
CPT/HCPCS: 36415; 71275; 80048; 80061; 80076; 83735; 84436; 84443; 84479; 84484; 85025; 85378; Q9967

== ENCOUNTER 2024-07-24 15:04 | Outpatient (CLI) | payer OTHER, SELFPAY | END 2024-07-24 23:59 | disposition home or self-care (01) | LOC: RT 15:05 | PROVIDERS: PCP Family Medicine; Visit Provider Internal Medicine | DX: I47.19 Other supraventricular tachycardia (principal); I49.1 Atrial premature depolarization; I49.3 Ventricular premature depolarization | CPT/HCPCS: 93270 ==

== ENCOUNTER 2024-10-17 14:42 | Outpatient (CLI) | payer OTHER, SELFPAY ==
[2024-10-17 16:48] LABS: T4 (Thyroxine) 9.0 ug/dl (5.53-11.0)
[2024-10-17 17:01] LABS: Thyroid Stimulating Hormone 4.87 uIU/mL (0.465-4.68)
[2024-10-17 19:10] LABS: Hemoglobin A1C 5.9 % (4.0-6.0)
--- OUTSIDE RECORDS SUMMARY | 2024-10-21 14:45 | XMS_ITS | Clinical Summary ---
Author Organization Healthcare Address [address] [place] [address] Care Team Providers Care Document Restorer Name Role Phone Unavailable Primary Care Provider Unavailabl e Social History Tobacco Use Types Packs/Day Years Used Date Smoking Tobacco: Never Assessed Sex and Gender Information Value Date Recorded Sex Assigned at Not on file Legal Sex Male 7:39 PM EDT Gender Identity Not on file Sexual Orientation Not on file Plan of Treatment Not on file
== END 2024-10-17 23:59 ==
LOC: LAB.DROPOF 10-21 14:43
PROVIDERS: PCP Family Medicine; Visit Provider Family Medicine
DX: E03.9 Hypothyroidism, unspecified (principal); R73.03 Prediabetes; Z12.5 Encounter for screening for malignant neoplasm of prostate
CPT/HCPCS: 83036; 84436; 84443; G0103

== ENCOUNTER 2024-12-06 09:07 | Outpatient (CLI) | payer OTHER, SELFPAY ==
[2024-12-06 21:30] LABS: Alanine Aminotransferase 25 U/L (12-78); Albumin Level 4.2 g/dl (3.5-5.0); Albumin/Globulin Ratio 1.6 (1.1-1.8); Alkaline Phosphatase 97 U/L (38-126); Anion Gap 15.1 mEq/L (5-15); Aspartate Amino Transferase 31 U/L (17-59); Bilirubin,Total 1.2 mg/dl (0.2-1.3); Blood Urea Nitrogen 18 mg/dl (9-20); Calcium 9.1 mg/dl (8.4-10.2); Carbon Dioxide 21 mmol/L (22.0-30.0); Chloride 105 mmol/L (98-107); Creatinine,Serum 1.10 mg/dl (0.66-1.25); Estimated Glomerular Filt Rate 67 ml/min (>60); GFR (African American) 82 ML/MIN (>60); Globulin 2.6 g/dL (1.3-3.2); Glucose 98 mg/dl (74-100); Magnesium 1.9 mg/dl (1.6-2.3); Potassium 5.1 mmoL/L (3.5-5.1); Sodium 136 mmol/L (136-145); Total Protein,Serum 6.8 g/dl (6.3-8.2)
[2024-12-06 22:00] LABS: Thyroid Stimulating Hormone 2.55 uIU/mL (0.465-4.68)
--- OUTSIDE RECORDS SUMMARY | 2024-12-09 09:16 | XMS_ITS | Clinical Summary ---
Author Organization Healthcare Address [address] [place] [address] Care Team Providers Care Remelter Name Role Phone Unavailable Primary Care Provider [...]
== END 2024-12-06 23:59 ==
LOC: LAB.DROPOF 12-09 09:08
PROVIDERS: PCP Family Medicine; Visit Provider Family Medicine
DX: I25.10 Atherosclerotic heart disease of native coronary artery without angina pectoris (principal)
CPT/HCPCS: 80053; 83735; 84443

== ENCOUNTER 2025-02-20 15:21 | Outpatient (CLI) | payer OTHER, SELFPAY ==
--- OUTSIDE RECORDS SUMMARY | 2025-02-20 15:23 | XMS_ITS | Clinical Summary ---
Author Organization Healthcare Address [address] [place] [address] Care Team Providers Care Director Sales And Marketing Name Role Phone Unavailable Primary Care Provider [...]
[2025-02-20 16:13] LABS: Hematocrit 43.8 % (42.0-52.0); Hemoglobin 14.9 g/dL (14.1-18.0); Immature Granulocytes % 0.1 %; Mean Corpuscular HGB Conc 34.0 g/dL (31.8-35.4); Mean Corpuscular Hemoglobin 33.1 pg (27.0-31.2); Mean Corpuscular Volume 97.3 fl (80-94); Nucleated Red Blood Cells % 0 %; Platelet Count 277 K/mm3 (142-424); Red Blood Count 4.50 M/mm3 (4.60-6.20); Red Cell Distribution Width-SD 45.4 fL; White Blood Count 7.4 K/mm3 (4.8-10.8)
[2025-02-20 16:39] LABS: Alanine Aminotransferase 20 U/L (12-78); Albumin Level 4.6 g/dl (3.5-5.0); Alkaline Phosphatase 89 U/L (38-126); Anion Gap 13.5 mEq/L (5-15); Aspartate Amino Transferase 25 U/L (17-59); Bilirubin,Direct 0.2 mg/dl (0.0-0.4); Bilirubin,Indirect 1.1 mg/dL (0.0-0.9); Bilirubin,Total 1.3 mg/dl (0.2-1.3); Bilirubin,Unconjugated 1.1 mg/dL (0.0-1.1); Blood Urea Nitrogen 20 mg/dl (9-20); Calcium 9.7 mg/dl (8.4-10.2); Carbon Dioxide 23 mmol/L (22.0-30.0); Chloride 107 mmol/L (98-107); Cholesterol 106 mg/dl (140-200); Creatinine,Serum 1.30 mg/dl (0.66-1.25); Estimated Glomerular Filt Rate 56 ml/min (>60); GFR (African American) 67 ML/MIN (>60); Glucose 100 mg/dl (74-100); HDL Cholesterol 43 mg/dl (40-60); Magnesium 1.8 mg/dl (1.6-2.3); Potassium 4.5 mmoL/L (3.5-5.1); Sodium 139 mmol/L (136-145); Total Protein,Serum 7.4 g/dl (6.3-8.2); Triglycerides 112 mg/dl (30-150)
[2025-02-20 16:58] LABS: Free Thyroxine Index 3.7 ug/dL (5.93-13.13); T4 (Thyroxine) 10.5 ug/dl (5.53-11.0); Triiodothryronine (T3) Uptake 35 % (23.5-40.5)
[2025-02-20 17:00] LABS: Free T4 (Free Thyroxine) 1.47 ng/dl (0.78-2.19)
[2025-02-20 17:01] LABS: 25-OH Vitamin D, Total 32.6 ng/mL (30-100)
[2025-02-20 17:11] LABS: Thyroid Stimulating Hormone 1.31 uIU/mL (0.465-4.68)
[2025-02-20 17:13] LABS: Thyroid Stimulating Hormone 1.30 uIU/mL (0.465-4.68)
[2025-02-22 04:08] LABS: Testosterone,Total 641 ng/dL (264-916)
[2025-02-25 12:23] LABS: Testosterone,Free 12.0 pg/mL (6.6-18.1)
== END 2025-02-20 23:59 | disposition home or self-care (01) ==
LOC: LAB 15:21
PROVIDERS: PCP Family Medicine; Visit Provider Internal Medicine
DX: E03.9 Hypothyroidism, unspecified (principal); I10 Essential (primary) hypertension; I25.110 Atherosclerotic heart disease of native coronary artery with unstable angina pectoris; E78.2 Mixed hyperlipidemia; Z79.01 Long term (current) use of anticoagulants
CPT/HCPCS: 36415; 80048; 80061; 80076; 82306; 83735; 84402; 84403; 84436; 84439; 84443; 84479; 85025